=== PATIENT | male | born 1940 | race Caucasian/White ===

== ENCOUNTER 2016-09-28 15:15 | Observation (INO) | payer MEDICARE, OTHER ==
[~2016-09-28] VITALS: Ht 182.9 cm; Wt 125.3 kg
[~2016-09-28 15:15] MED LIST: ACETAMINOPHEN325 M1 PO; ALDACTONE 25MG25 MG NG; ALDACTONE 25MG25 MG PO; ASPIRIN 81MG TA81 MG PO; ASPIRIN CHILDRE81 M1 PO; ATIVAN GENERIC0.5 MG PO; ATORVASTATIN CA10 M1 PO; B/P PILL PO; BISAC-EVAC10 MG PR; BISACODYL5 MG PO; CARAFATE1 GM PO; CARBIDOPA/LE1 TABLE2 PO; CARVEDILOL 25MG25 MG PO; CARVEDILOL3.125 MG PO; CEFDINIR300 M1 PO; CENTRUM SILVER1 TA2 PO; CIPRO 500MG TA500 MG PO; CORTEF10 MG PO; CORTEF20 MG PO; FISH OIL1000 MG PO; HYDROCHLOROTHIA25 M1 PO; HYDROCODONE-APA1 TA1 PO; HYDROCODONE-APA1 TA2 PO; HYDROCORTISONE10 MG PO; LASIX40 MG PO; LEVOTHYROXIN0.112 M1 PO; LEVOTHYROXIN0.175 MG PO; LEVOTHYROXINE0.15 MG PO; LIPITOR40 MG PO; LISINOPRIL 5MG T5 MG PO; LISINOPRIL HCTZ1 TAB PO; LISINOPRIL/HYDR1 TAB PO; LISINOPRIL20 MG PO; LISINOPRIL40 MG PO; LOPRESSOR 50 MG50 MG PO; MECLIZINE 25MG25 MG PO; MECLIZINE12.5 MG PO; NIFEDIPINE ER90 MG PO; OMEPRAZOLE D/R20 MG PO; OMNICEF 300 MG300 MG PO; PANTOPRAZOLE SO40 MG PO; POTASSIUM CHLO10 ME3 PO; PREDNISONE 20MG20 MG PO; PREDNISONE20 MG PO; PROTONIX 40MG T40 MG PO; QUETIAPINE FUMA25 MG PO; ROBAXIN-750750 MG PO; SILVADENE CREAM50 GM TP; TYLENOL325 MG PO; ZITHROMAX Z-PA250 M1 PO
[2016-09-28 15:17] VITALS: BP 133/82
[2016-09-28 15:33] LABS: LYMPH # 2.8 K/mm3 (0.7-4.5); LYMPH % 22.9 % (10-50)
[2016-09-28 16:18] LABS: BUN 52 mg/dL (7-18)
[2016-09-28 16:22] LABS: GFR (ESTIMATED) 28 ML/MIN (>60)
--- NOTE | 2016-09-28 16:55 | CARDIOVASCULAR REPORT ---
"Venous Exam Indications: 729.5 Pain in limb. 729.81 Swelling of limb. IMPRESSIONS 1. There is no evidence of significant Reflux. 2. No evidence of deep or superficial vein thrombosis involving the left lower extremity Left lower extremity venous duplex evaluation. Doppler flow study including spectral analysis, color and valle scale imaging. Location: Vascular laboratory. Patient status: Emergency department. Tables: Venous flow and imaging: + + + + |Location |Overall |Flow properties | + + + + |Left common femoral |Patent |Normal phasicity; | | | |spontaneous; normal | | | |augmentation; compressible | + + + + |Left saphenofemoral junction|Patent |Compressible | + + + + |Left profunda femoral |Patent |Compressible | + + + + |Left femoral |Patent |Normal phasicity; | | | |spontaneous; normal | | | |augmentation; compressible | + + + + |Left greater saphenous |Patent |Normal phasicity; | | | |spontaneous; normal | | | |augmentation; compressible | + + + + |Left popliteal |Patent |Normal phasicity; | | | |spontaneous; normal | | | |augmentation; compressible | + + + + |Left posterior tibial |Not visualized| | + + + + |Left peroneal |Not visualized| | + + + + |Left gastrocnemius |Patent |Compressible | + + + + |Left soleal |Patent |Compressible | + + + + (Report amended ) Electronically signed by: Mario Beavers [id number]"
--- NOTE | 2016-09-28 17:36 | Emergency Room Report ---
History of Present Illness Time Seen by [id number] Presenting Problem in Triage Pt arrived:Walked Presenting Problem:TRIED TO GO SEE DR ZAZUETA BUT COULDN'T GET OUT OF HOUSE WITHOUT FEELING SWIMMY HEADED. PT STATES HE HAS ISSUES WITH CHF AND HAS BEEN RECEIVING LASIX. 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 N Clinical Suspician of Infection? N Mental Status: 1 - Regular (Normal Baseline) Sepsis Risk:Low Sepsis Risk Have you (or family members/close friends) recently traveled outside the [place]? N If Yes, where/when: Have you had exposure to infectious disease within the past month? TB? Other? Specify: Source patient, RN notes reviewed, family, RN/MD Exam Limitations no limitations Comment This is a 76-year-old male patient arriving to the emergency room due to generalized weakness, inability to stand and walk, ongoing shortness of breath, LEFT lower extremity weakness. Patient tried to go see his PCP today, Dr. Zazueta, but he was unable to, due to above-mentioned complaints. Patient denies any chest pain, recently. He has a history of Parkinson and congestive heart failure. His PCP call [employer] antibiotics due to LEFT lower extremity cellulitis, and he is on day number 4 of such antibiotic treatment. Girlfriend advised that patient is barely getting out of bed at home, watching TV all day long. ALLERGIES Coded Allergies: Sulfa (Sulfonamide Antibiotics) (09/28/16) Home Medications Active Scripts Carvedilol (Carvedilol 3.125MG) 6.25 MG PO BID #60 TAB Ref 2 Prov: 04/10/15 HYDROCODONE 5MG/APAP 325MG (Hydrocodon-Acetaminophen 5-325) 1 TAB PO Q4HP PRN pain #24 TAB Prov: 02/14/16 Reported Medications Spironolactone (Aldactone) 25 MG PO BID Levothyroxine Sodium (Levothyroxine 0.112MG) 0.112 MG PO DAILY CARBIDOPA 25/LEVODOPA 100 (Carbidopa-Levodopa 25-100 Tab) 1 TABLET PO TID Acetaminophen (Tylenol) 650 MG PO [id number] Hydrocortisone (Cortef) 10 MG PO QHS Nifedipine (Procardia XL 90MG) 90 MG PO DAILY Pantoprazole Sodium (Pantoprazole 40MG) 40 MG PO DAILY ASPIRIN (Aspirin) 81 MG PO DAILY Hydrocortisone (Cortef) 20 MG PO DAILY Atorvastatin Calcium 20 MG PO QHS LISINOPRIL/HYDROCHLOROTHIAZIDE (Lisinopril-Hctz 20-25 MG Tab) 2 TAB PO DAILY History Medical History General CAD? Yes Angina: No MT: No Hypertension? Yes Hyperlipidemia? Yes CHF? No DVT? No PE? No COPD? No Asthma? No Anemia? Yes GERD? No Gastric ulcers? No GI Bleed? No Hernia? No Thyroid Problems? Yes Hypothyroidism? Yes CVA? Yes Seizures? No Diabetes? No Insulin Dependent: No Insulin Pump: No Home FSBS? No Renal Insuffiency? No End Stage Renal Disease? No UTI? No Stones? No BPH? No GB Disease: No Nephritic Syndrome? No Asplenia? No Hepatitis? No Sickle Cell Disease? No Arthritis? No Migraines? No Cataracts? No Glaucoma? No MRSA? No HIV? No TB? No Anxiety? No Depression? No Cancer? No More? 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 Family History Family Hx Diabetes No CAD Yes Hypertension Yes Hyperlipidemia Yes Cancer Yes TB No Social History Smoking Hx Smoker: Never Smoker Tobacco: No Type Cigarettes Alcohol Alcohol: No Review of Systems All Other Systems Reviewed and Negative Cardiovascular edema (lower extremity edema) Comment unable to stand up and walk Physical Exam Vital Signs Vital Signs Date Time Temp Pulse Resp B/P Pulse O2 O2 Flow FiO2 Ox Delivery Rate 09/28 1810 120 22 146/67 96 09/28 1616 64 20 135/78 98 09/28 1534 121 133/76 09/28 1533 81 138/77 09/28 1533 75 133/82 09/28 1517 97.8 80 18 133/82 97 General Appearance WD/WN, mild distress Neck normal inspection, non-tender, supple, full range of motion Respiratory Status Yes: trachea midline, chest symmetrical, non tender chest. No: respiratory distress. Lung Sounds bilateral: normal breath sounds, lungs clear. 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 No Comment 18:15-case d/w Dr Frausto, advised of patient's presentation, physical examination, radiology/lab work, electrocardiogram findings and course, vital signs, lack of any improvement and patient's inability to stand up and walk. Lisbet agreeable to admit patient Dr. Zazueta's service, and consult care management, for possible visiting nurse after be discharged home versus correction placement. Care transferred to Dr. Frausto at this time. I will write bridge admission orders, per hospital policy. Upon patient's arrival to the unit to the clerk secretary/[address] Frausto noted to obtain full inpatient admission orders. Results/Orders Laboratory Tests 09/28/16 1520: Amylase 62, Lipase 142 09/28/16 1520: Sodium 133 L, Potassium 5.8 H, Chloride 97 L, Carbon Dioxide 27, BUN 52 H, Creatinine 2.3 H, Estimated Creat Clear 51, Estimated GFR (MDRD) 28, Glucose 129 H, Calcium 9.4, Total Bilirubin 0.6, AST 23, ALT 35, Alkaline Phosphatase 100, Creatine Kinase 128, CK-MB (CK-2) Rel Index 2.1, CK and CKMB Interp 2.7, Troponin I 0.02, Total Protein 7.2, Albumin 4.0, Globulin 3.2, Albumin/Globulin Ratio 1.3, TSH < 0.01 L, Free T4 Index 6.0, Thyroxine (T4) 6.5, T3 Uptake 37, WBC 12.4 H, RBC 4.38 L, Hgb 14.0 L, Hct 41.8 L, MCV 95.4, RDW 14.8, Plt Count 289, MPV 6.3 L, Gran % 71.8, Gran # 8.9 H, Lymphocytes % 22.9, Monocytes % 5.1, Eosinophils % 0.1, Basophils % 0.1, Lymphocytes # 2.8, Monocytes # 0.6, Eosinophils # 0.0, Basophils # 0.0, PUBS MCHC 33.6, MCH 32.0 H Current Medication Orders Sig/Bennett Start time Last Medication Dose Route Stop Time Status Admin Sodium Chloride 10 ML PRN PRN 09/28 1530 AC IV 09/29 1522 Orders Procedure Date/time Status DIET-NOTHING BY MOUTH 09/[address] HEAD REQ 09/28 1814 Complete LIPASE 09/28 1814 Complete AMYLASE 09/28 1814 Complete VENOUS LOWER EXT LT 09/28 1633 Complete ELECTROCARDIOGRAM REQUEST 09/28 1522 Active IV SALINE LOCK 09/28 1522 Active THYROID PANEL 2 (WITH TSH) 09/28 152 Complete CBC WITH AUTO DIFF 09/28 1522 Complete CARDIAC ENZYMES 09/28 1522 Complete CHEM 12 PROFILE 09/28 1522 Complete 12 LEAD EKG-BESSON (INITIAL) 09/28 1520 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 of ischemic chgs, no ectopy, normal QRS, normal [place], no EKG for comparison, non-spec. ST/Twave chgs, ST elevation, ST depression, LBBB, RBBB, ectopy, abnormal Q waves XRAY/CT/US XRAY/CT/US 1 XRAY chest XR interpretation by reviewed by me Xray Results no infiltrates, cardiomegaly, no significant change when compared to previous studies XRAY/CT/US [address] interpretation by discussed w/radiologist CT Results atrophy, no ICH XRAY/CT/US 3 Ultrasound lower extremity (LEFT) US Interpretation by discussed w/radiologist US results no DVT Departure Departure Time of Disposition 1810 Disposition Still a Patient Clinical Impression Primary Impression: Weakness Secondary Impressions: Hyperkalemia Condition STABLE Referrals Luann POLANCO,Chris (Family) ED Critical Care Critical Care No at 1938
--- NOTE | 2016-09-28 17:36 | Emergency Room Report ---
History of Present Illness Time Seen by [id number] Presenting Problem in Triage Pt arrived:Walked Presenting Problem:TRIED TO GO SEE DR ZAZUETA BUT COULDN'T GET OUT OF HOUSE WITHOUT FEELING SWIMMY HEADED. PT STATES HE HAS ISSUES WITH CHF AND HAS BEEN RECEIVING LASIX. 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 N Clinical Suspician of Infection? N Mental Status: 1 - Regular (Normal Baseline) Sepsis Risk:Low Sepsis Risk Have you (or family members/close friends) recently traveled outside the [place]? N If Yes, where/when: Have you had exposure to infectious disease within the past month? TB? Other? Specify: Source patient, RN notes reviewed, family, RN/MD Exam Limitations no limitations Comment This is a 76-year-old male patient arriving to the emergency room due to generalized weakness, inability to stand and walk, ongoing shortness of breath, LEFT lower extremity weakness. Patient tried to go see his PCP today, Dr. Zazueta, but he was unable to, due to above-mentioned complaints. Patient denies any chest pain, recently. He has a history of Parkinson and congestive heart failure. His PCP call [employer] antibiotics due to LEFT lower extremity cellulitis, and he is on day number 4 of such antibiotic treatment. Girlfriend advised that patient is barely getting out of bed at home, watching TV all day long. ALLERGIES Coded Allergies: Sulfa (Sulfonamide Antibiotics) (09/28/16) Home Medications Active Scripts Carvedilol (Carvedilol 3.125MG) 6.25 MG PO BID #60 TAB Ref 2 Prov: 04/10/15 HYDROCODONE 5MG/APAP 325MG (Hydrocodon-Acetaminophen 5-325) 1 TAB PO Q4HP PRN pain #24 TAB Prov: 02/14/16 Reported Medications Spironolactone (Aldactone) 25 MG PO BID Levothyroxine Sodium (Levothyroxine 0.112MG) 0.112 MG PO DAILY CARBIDOPA 25/LEVODOPA 100 (Carbidopa-Levodopa 25-100 Tab) 1 TABLET PO TID Acetaminophen (Tylenol) 650 MG PO [id number] Hydrocortisone (Cortef) 10 MG PO QHS Nifedipine (Procardia XL 90MG) 90 MG PO DAILY Pantoprazole Sodium (Pantoprazole 40MG) 40 MG PO DAILY ASPIRIN (Aspirin) 81 MG PO DAILY Hydrocortisone (Cortef) 20 MG PO DAILY Atorvastatin Calcium 20 MG PO QHS LISINOPRIL/HYDROCHLOROTHIAZIDE (Lisinopril-Hctz 20-25 MG Tab) 2 TAB PO DAILY History Medical History General CAD? Yes Angina: No MS: No Hypertension? Yes Hyperlipidemia? Yes CHF? No DVT? No PE? No COPD? No Asthma? No Anemia? Yes GERD? No Gastric ulcers? No GI Bleed? No Hernia? No Thyroid Problems? Yes Hypothyroidism? Yes CVA? Yes Seizures? No Diabetes? No Insulin Dependent: No Insulin Pump: No Home FSBS? No Renal Insuffiency? No End Stage Renal Disease? No UTI? No Stones? No BPH? No GB Disease: No Nephritic Syndrome? No Asplenia? No Hepatitis? No Sickle Cell Disease? No Arthritis? No Migraines? No Cataracts? No Glaucoma? No MRSA? No HIV? No TB? No Anxiety? No Depression? No Cancer? No More? 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 Family History Family Hx Diabetes No CAD Yes Hypertension Yes Hyperlipidemia Yes Cancer Yes TB No Social History Smoking Hx Smoker: Never Smoker Tobacco: No Type Cigarettes Alcohol Alcohol: No Review of Systems All Other Systems Reviewed and Negative Cardiovascular edema (lower extremity edema) Comment unable to stand up and walk Physical Exam Vital Signs Vital Signs Date Time Temp Pulse Resp B/P Pulse O2 O2 Flow FiO2 Ox Delivery Rate 09/28 1810 120 22 146/67 96 09/28 1616 64 20 135/78 98 09/28 1534 121 133/76 09/28 1533 81 138/77 09/28 1533 75 133/82 09/28 1517 97.8 80 18 133/82 97 General Appearance WD/WN, mild distress Neck normal inspection, non-tender, supple, full range of motion Respiratory Status Yes: trachea midline, chest symmetrical, non tender chest. No: respiratory distress. Lung Sounds bilateral: normal breath sounds, lungs clear. 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 No Comment 18:15-case d/w Dr Frausto, advised of patient's presentation, physical examination, radiology/lab work, electrocardiogram findings and course, vital signs, lack of any improvement and patient's inability to stand up and walk. Lisbet agreeable to admit patient Dr. Zazueta's service, and consult care management, for possible visiting nurse after be discharged home versus fdc placement. Care transferred to Dr. Frausto at this time. I will write bridge admission orders, per hospital policy. Upon patient's arrival to the unit to the social secretary/[address] Frausto noted to obtain full inpatient admission orders. Results/Orders Laboratory Tests 09/28/16 1520: Amylase 62, Lipase 142 09/28/16 1520: Sodium 133 L, Potassium 5.8 H, Chloride 97 L, Carbon Dioxide 27, BUN 52 H, Creatinine 2.3 H, Estimated Creat Clear 51, Estimated GFR (MDRD) 28, Glucose 129 H, Calcium 9.4, Total Bilirubin 0.6, AST 23, ALT 35, Alkaline Phosphatase 100, Creatine Kinase 128, CK-MB (CK-2) Rel Index 2.1, CK and CKMB Interp 2.7, Troponin I 0.02, Total Protein 7.2, Albumin 4.0, Globulin 3.2, Albumin/Globulin Ratio 1.3, TSH < 0.01 L, Free T4 Index 6.0, Thyroxine (T4) 6.5, T3 Uptake 37, WBC 12.4 H, RBC 4.38 L, Hgb 14.0 L, Hct 41.8 L, MCV 95.4, RDW 14.8, Plt Count 289, MPV 6.3 L, Gran % 71.8, Gran # 8.9 H, Lymphocytes % 22.9, Monocytes % 5.1, Eosinophils % 0.1, Basophils % 0.1, Lymphocytes # 2.8, Monocytes # 0.6, Eosinophils # 0.0, Basophils # 0.0, PUBS MCHC 33.6, MCH 32.0 H Current Medication Orders Sig/Bennett Start time Last Medication Dose Route Stop Time Status Admin Sodium Chloride 10 ML PRN PRN 09/28 1530 AC IV 09/29 1522 Orders Procedure Date/time Status DIET-NOTHING BY MOUTH 09/[address] HEAD REQ 09/28 1814 Complete LIPASE 09/28 1814 Complete AMYLASE 09/28 1814 Complete VENOUS LOWER EXT LT 09/28 1633 Complete ELECTROCARDIOGRAM REQUEST 09/28 1522 Active IV SALINE LOCK 09/28 1522 Active THYROID PANEL 2 (WITH TSH) 09/28 152 Complete CBC WITH AUTO DIFF 09/28 1522 Complete CARDIAC ENZYMES 09/28 1522 Complete CHEM 12 PROFILE 09/28 1522 Complete 12 LEAD EKG-BESSON (INITIAL) 09/28 1520 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 of ischemic chgs, no ectopy, normal QRS, normal [place], no EKG for comparison, non-spec. ST/Twave chgs, ST elevation, ST depression, LBBB, RBBB, ectopy, abnormal Q waves XRAY/CT/US XRAY/CT/US 1 XRAY chest XR interpretation by reviewed by me Xray Results no infiltrates, cardiomegaly, no significant change when compared to previous studies XRAY/CT/US [address] interpretation by discussed w/radiologist CT Results atrophy, no ICH XRAY/CT/US 3 Ultrasound lower extremity (LEFT) US Interpretation by discussed w/radiologist US results no DVT Departure Departure Time of Disposition 1810 Disposition Still a Patient Clinical Impression Primary Impression: Weakness Secondary Impressions: Hyperkalemia Condition STABLE Referrals Luann POLANCO,Chris (Family) ED Critical Care Critical Care No at 1938
--- NOTE | 2016-09-28 19:08 | RADIOLOGY REPORT PS360 ---
CHEST-AP VIEW ONLY Ordering physician: Chris Kong MD Age: 76 years Male INDICATION: chest symptomsdyspnea, Hx of CHF PROCEDURE: CHEST-AP VIEW ONLY FINDINGS: Previous chest film 02/15/2016. There is been no significant interval change. The mild accentuation of markings at the medial left base is long-standing unchanged since prior studies and appears to may reflect anterior epicardial fat pad summation shadow based on CT 08/19/2015 Lungs well expanded and clear with nothing definitely acute. No pneumothorax. No pleural effusion. Heart upper normal size. Normal pulmonary vascularity. Hilar and mediastinal structures appear satisfactory. Chest wall unremarkable. IMPRESSION ----- Nothing definite acute at chest No significant change a stable chest
--- NOTE | 2016-09-28 19:09 | RADIOLOGY REPORT PS360 ---
CT HEAD WITHOUT CONTRAST CT BONE WINDOWS included ORDERING PHYSICIAN : Chris Kong MD PATIENT AGE: 76 years GENDER: Male PROCEDURE: Routine axial images head with brain & bone windows without contrast HISTORY: WEAKNESS 76-year-old with weakness COMPARISON: Previous CT head 02/14/2016 & April 2008 FINDINGS: No acute intrarenal findings. No changes previous studies 2015 2014 Diffuse cerebral atrophy most evident towards convexity of cerebral hemispheres. Similar to previous recent study. Linear area low-density along periphery the basal ganglia or involvingposterior aspect external capsule, is again noted and unchanged likely reflecting some old lacunar infarct changes through this region... This spans nearly 20 mm AP x 3 mm wide. Unchanged. No hemorrhage. . No subdural nor extra-axial collection. Ventricles & basal cisterns mildly prominent reflecting the cerebral atrophy. The posterior fossa appear satisfactory and unremarkable. The sella is enlarged and filled with CSF density as previous studies.. This is unchanged since CT head studies dating back to April 2008: . Again It measures up to 2 cm AP and 2008. Again note associated mild asymmetry of the sphenoid sinus just inferior it is stable as well Otherwise. Visualized paranasal sinuses appear clear. Orbits unremarkable. Mastoid and middle ear unremarkable. Minimal physiologic calcification left basal ganglia is stable, long-standing. The skull is intact. IMPRESSION: No acute intracranial findings . No significant change since previous. [address] Diffuse cerebral atrophy. 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
[2016-09-28 22:36] VITALS: BP 136/95
[2016-09-28 22:53] VITALS: BP 123/66
[2016-09-29] VITALS (7 sets, daily range): BP systolic 112–131; BP diastolic 59–64
[2016-09-29] MEDS ORDERED: PREDNISONE (00:49)
--- NOTE | 2016-09-29 04:22 | PHARMACY CLINIC NOTE ---
Patient Demographics Patient Demographics Admission date: 09/28/16 Date: 09/29/16 Time: 042 Allergies Coded Allergies: Sulfa (Sulfonamide Antibiotics) (09/28/16) HEIGHT- FT: 6 IN: 0.00 [id number] VTE General Information Labs: Laboratory Tests 09/28 1520 Hematology Hgb (14.1 - 18.0 g/dL) 14.0 L Hct (42.0 - 52.0 %) 41.8 L Plt Count (142 - 424 K/mm3) 289 Disclaimer The following section includes nursing documentation that has been pulled in for pharmacy review. Patient's VTE score: 3 Patient's VTE Risk: LOW RISK Clinical trial participant? No VTE prophylaxis NQF [id number] VTE prophylaxis ordered? Yes Type of prophylaxis/treatment: KAMILLE at 0422
[2016-09-29] MEDS ORDERED: PREDNISONE 20MG20 MG PO (04:34)
[2016-09-29] MEDS ORDERED: HYDROCORTISONE10 MG PO (04:35)
[2016-09-29] MEDS ORDERED: LISINOPRIL5 MG PO (04:36)
[2016-09-29] MEDS ORDERED: FUROSEMIDE 40MG40 M1 PO ×2 (04:37→10:39)
[2016-09-29 06:57] LABS: HEMOGLOBIN 12.8 g/dL (14.1-18.0); LYMPH # 4.5 K/mm3 (0.7-4.5); LYMPH % 34.3 % (10-50)
--- NOTE | 2016-09-29 07:51 | HISTORY AND PHYSICAL REPORT ---
Demographics: Admit date: 09/28/16 Chief complaint: Weakness and lethargy PRIMARY DIAGNOSIS: WEAKNESS, HYPERKALEMIA; ACUTE RENAL FAILURE Allergies: Coded Allergies: Sulfa (Sulfonamide Antibiotics) (09/28/16) History of present illness: History of present illness: 76-year-old white male with multiple medical problems including pituitary insufficiency, hypothyroidism, chronic stasis dermatitis and chronic depression issues who presented to my office 2 weeks ago with significant lower cavity edema, weeping and cellulitis. He was placed on diuretics which he had stopped at home and was seen back a week later and was much improved. Unfortunately over the last couple of days she become increasingly weak and has been unable to do self-care activities and his caregiver reports that he has been sitting in his chair and bed and only watching television and not doing any activities. He was too weak to come to my office yesterday and was brought to the emergency department where he was found to have acute kidney injury, dizziness and hyperkalemia and was admitted to hospital. This morning he states he feels some better but reports continued dizziness and weakness. Past medical history: Family HX Diabetes No CAD Yes Hypertension Yes Hyperlipidemia No Cancer No TB No Immunization HX Ped.Immunizations UTD Yes DT/Tetanus Unknown Flu 2014-16FSN Pneumonia Received In Past TB Test in last year Yes Result Negative General CAD? Yes Angina: No GA: No Hypertension? Yes Hyperlipidemia? Yes CHF? No DVT? No PE? No COPD? No Asthma? No Anemia? Yes GERD? No Gastric ulcers? No GI Bleed? No Hernia? No Thyroid Problems? Yes Hypothyroidism? Yes CVA? Yes Seizures? No Diabetes? No Insulin Dependent: No Insulin Pump: No Home FSBS? No Renal Insuffiency? No UTI? No Stones? No BPH? No GB Disease: No Nephritic Syndrome? No Asplenia? No Hepatitis? No Sickle Cell Disease? No Arthritis? No Migraines? No Cataracts? No Glaucoma? No MRSA? No HIV? No TB? No Anxiety? No Depression? No Cancer? No More? 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 Current home meds: Active Scripts Carvedilol (Carvedilol 3.125MG) 6.25 MG PO BID #60 TAB Ref 2 Prov: 04/10/15 Reported Medications Spironolactone (Aldactone) 25 MG PO BID Levothyroxine Sodium (Levothyroxine 0.112MG) 0.112 MG PO DAILY CARBIDOPA 25/LEVODOPA 100 (Carbidopa-Levodopa 25-100 Tab) 1 TABLET PO TID Acetaminophen (Tylenol) 650 MG PO [id number] Prednisone (Prednisone 20MG) 20 MG PO DAILY #90 Hydrocortisone 10 MG PO TID #90 Lisinopril 5 MG PO DAILY #90 Nifedipine (Procardia XL 90MG) 90 MG PO DAILY Pantoprazole Sodium (Pantoprazole 40MG) 40 MG PO DAILY ASPIRIN (Aspirin) 81 MG PO DAILY Atorvastatin Calcium 20 MG PO QHS LISINOPRIL/HYDROCHLOROTHIAZIDE (Lisinopril-Hctz 20-25 MG Tab) 2 TAB PO DAILY Social Hx: Smoking HX Tobacco No Type Cigarettes Alcohol Alcohol: No Hx of Drug Use Drug Use? No Patien't marital status is single Patient's support system is fair Review of systems: Constitutional malaise, weakness. Respiratory No: no symptoms reported. Cardiovascular see HPI Gastrointestinal/Abdominal No no symptoms reported Genitourinary No: no symptoms reported. Musculoskeletal No: no symptoms reported. Neurological Yes: no symptoms reported. Exam: Lab data for last 24 hours: Laboratory Tests 09/29/16 0649: POC Glucose 94 09/29/16 0610: Sodium 136, Potassium 4.6, Chloride 99, Carbon Dioxide 27, BUN 52 H, Creatinine 2.3 H, Estimated Creat Clear 48 L, Estimated GFR (MDRD) 28, Glucose 100, Calcium 9.1, WBC 13.2 H, RBC 4.04 L, Hgb 12.8 L, Hct 38.7 L, MCV 95.9, RDW 14.7, Plt Count 245, MPV 6.3 L, Gran % 60.8, Gran # 8.0, Lymphocytes % 34.3, Monocytes % 4.4, Eosinophils % 0.3, Basophils % 0.2, Lymphocytes # 4.5, Monocytes # 0.6, Eosinophils # 0.0, Basophils # 0.0, PUBS MCHC 33.2, MCH 31.8 H 09/28/16 2210: POC Glucose 268 H 09/28/16 1520: Amylase 62, Lipase 142 09/28/16 1520: Sodium 133 L, Potassium 5.8 H, Chloride 97 L, Carbon Dioxide 27, BUN 52 H, Creatinine 2.3 H, Estimated Creat Clear 51, Estimated GFR (MDRD) 28, Glucose 129 H, Calcium 9.4, Total Bilirubin 0.6, AST 23, ALT 35, Alkaline Phosphatase 100, Creatine Kinase 128, CK-MB (CK-2) Rel Index 2.1, CK and CKMB Interp 2.7, Troponin I 0.02, Total Protein 7.2, Albumin 4.0, Globulin 3.2, Albumin/Globulin Ratio 1.3, TSH < 0.01 L, Free T4 Index 6.0, Thyroxine (T4) 6.5, T3 Uptake 37, WBC 12.4 H, RBC 4.38 L, Hgb 14.0 L, Hct 41.8 L, MCV 95.4, RDW 14.8, Plt Count 289, MPV 6.3 L, Gran % 71.8, Gran # 8.9 H, Lymphocytes % 22.9, Monocytes % 5.1, Eosinophils % 0.1, Basophils % 0.1, Lymphocytes # 2.8, Monocytes # 0.6, Eosinophils # 0.0, Basophils # 0.0, PUBS MCHC 33.6, MCH 32.0 H Admission vital signs: 1ST Vital Signs Result Date Time Pulse Ox 97 09/28 151 B/P 133/82 09/28 151 Temp 97.8 09/28 1517 Pulse 80 09/28 1517 Resp 18 09/28 151 O2 Delivery ROOM AIR 09/286 Additional information: Patient is alert, oriented x3, with clear lungs and regular heart rate. Abdomen is soft, legs look much improved with minimal edema and no evidence of cellulitis. He appears overall weak, dehydrated with poor skin turgor and dry oral mucosa. Plan: Problem List 1. Renal insufficiency 2. Pedal edema 3. Weakness 4. Hyperkalemia Plan: Begin low-dose IV fluids. Physical therapy evaluation. Consider rehabilitation/ skilled care stay. at 0751
[2016-09-29] MEDS ORDERED: MUPIROCIN 2% O1 INC1 TP (10:40)
[2016-09-29] MEDS ORDERED: KEFLEX 500MG.500 MG PO (10:41)
[2016-09-30 03:49] VITALS: BP 120/50
--- NOTE | 2016-09-30 08:03 | ACUTE CARE PROGRESS NOTE (QUA) ---
Progress Notes Subjective Date 09/30/16 Time 0754 Note Patient is a pleasant 76 year old male who was admitted two days ago. Patient states he is not feeling well this morning. He has not slept for two days. Patient denies being in pain, but states he is anxious. He states that he has dizziness when he sits up. Patient denies chest pain or difficulty breathing. Patient's edema in left leg has not resolved. Objective Exam General appearance: alert, awake, no acute distress Eyes: PERRLA Cardiovascular: normal sinus rhythm, edema (left lower extremety) Respiratory: diminished breath sounds ABD: non-distended, normal bowel sounds, soft, no tenderness Genitourinary: urine concentrated Extremities: moves all Musculoskeletal: equal muscle strength Skin: dry, intact, warm Neuro: normal exam Reviewed: medications, vital signs, lab results, nursing notes Assessment/Plan Problem List 1. Renal insufficiency 2. Pedal edema 3. Weakness 4. Hyperkalemia Plan: Will order physical therapy to evaluate patient. Will order routine labs. Possible LTC transfer today versus home health for ataxia. Low dose ativan and cytalopram for patient's anxiety. This inpt stay is expected to cross 2 MNs from start of care No at 0802
[2016-09-30 08:46] VITALS: BP 120/50
[2016-09-30 10:06] VITALS: BP 127/66
[2016-09-30] MEDS ORDERED: CELEXA 20MG TAB20 MG PO (11:54)
--- NOTE | 2016-09-30 11:57 | DISCHARGE SUMMARY STANDARD ---
Demographics Admit date: 09/28/16 Discharge date: 09/30/16 History of present illness History of present illness 76-year-old white male with multiple medical problems including pituitary insufficiency, hypothyroidism, chronic stasis dermatitis and chronic depression issues who presented to my office 2 weeks ago with significant lower cavity edema, weeping and cellulitis. He was placed on diuretics which he had stopped at home and was seen back a week later and was much improved. Unfortunately over the last couple of days she become increasingly weak and has been unable to do self-care activities and his caregiver reports that he has been sitting in his chair and bed and only watching television and not doing any activities. He was too weak to come to my office yesterday and was brought to the emergency department where he was found to have acute kidney injury, dizziness and hyperkalemia and was admitted to hospital. This morning he states he feels some better but reports continued dizziness and weakness. Hospital Course Hospital Course: Patient was admitted, his legs actually looked vastly improved from an infectious standpoint since his office visits and his Keflex was continued orally. Renal function was found to be compromised at a creatinine of 2.3 and he was gently hydrated with creatinine improvement to 1.5. He continued to have lots of problems with weakness and fatigue. Lots of problems with anxiety issues. He was given one dose of Ativan here which seemed to help in very nicely and citalopram was started. PT evaluated him and felt that he would be a good candidate for ongoing inpatient rehabilitation, and [place] [facility] [place] of his diuretic status, physical therapy and overall nursing care and compression therapy for his chronic edema. Please note that he will be able to use his home medications apply for cost reasons at the retirement, and this list is noted in the discharge order. We'll follow him up in a couple of days. He will need a CBC and BMP in 3 days. Discharge diagnoses Problem List 1. Renal insufficiency 2. Pedal edema 3. Weakness 4. Hyperkalemia Medications Medications: Discharge meds are as noted. Follow up Follow up in office in: 2 DAYS with: Lizbeth Smith APRN at [phone]
--- NOTE | 2016-09-30 11:57 | DISCHARGE SUMMARY STANDARD ---
Demographics Admit date: 09/28/16 Discharge date: 09/30/16 History of present illness History of present illness 76-year-old white male with multiple medical problems including pituitary insufficiency, hypothyroidism, chronic stasis dermatitis and chronic depression issues who presented to my office 2 weeks ago with significant lower cavity edema, weeping and cellulitis. He was placed on diuretics which he had stopped at home and was seen back a week later and was much improved. Unfortunately over the last couple of days she become increasingly weak and has been unable to do self-care activities and his caregiver reports that he has been sitting in his chair and bed and only watching television and not doing any activities. He was too weak to come to my office yesterday and was brought to the emergency department where he was found to have acute kidney injury, dizziness and hyperkalemia and was admitted to hospital. This morning he states he feels some better but reports continued dizziness and weakness. Hospital Course Hospital Course: Patient was admitted, his legs actually looked vastly improved from an infectious standpoint since his office visits and his Keflex was continued orally. Renal function was found to be compromised at a creatinine of 2.3 and he was gently hydrated with creatinine improvement to 1.5. He continued to have lots of problems with weakness and fatigue. Lots of problems with anxiety issues. He was given one dose of Ativan here which seemed to help in very nicely and citalopram was started. PT evaluated him and felt that he would be a good candidate for ongoing inpatient rehabilitation, and he'll be transferred to the [facility] [place] for ongoing close observation of his diuretic status, physical therapy and overall nursing care and compression therapy for his chronic edema. Please note that he will be able to use his home medications apply for cost reasons at the halfway, and this list is noted in the discharge order. We'll follow him up in a couple of days. He will need a CBC and BMP in 3 days. Discharge diagnoses Problem List 1. Renal insufficiency 2. Pedal edema 3. Weakness 4. Hyperkalemia Medications Medications: Discharge meds are as noted. Follow up Follow up in office in: 2 DAYS with: Lizbeth Smith APRN at [phone]
[2016-09-30 13:57] VITALS: BP 127/66
== END 2016-09-30 14:00 ==
LOC: ER 15:15 → 2ND 18:30
PROVIDERS: Emergency Medicine; Internal Medicine Adolescent Medicine
DX: E87.5 Hyperkalemia (principal); E23.0 Hypopituitarism; I87.2 Venous insufficiency (chronic) (peripheral); R60.0 Localized edema; M79.605 Pain in left leg; M79.604 Pain in right leg; I10 Essential (primary) hypertension; Z86.73 Personal history of transient ischemic attack (TIA), and cerebral infarction without residual deficits
CPT/HCPCS: G0378

== ENCOUNTER → 2016-10-06 | Outpatient (CLI) | payer MEDICARE, OTHER ==
[~2016-10-06] MED LIST changes: +CELEXA 20MG TAB20 MG PO; +FUROSEMIDE 40MG40 M1 PO; +KEFLEX 500MG.500 MG PO; +LISINOPRIL5 MG PO; +MUPIROCIN 2% O1 INC1 TP; +PREDNISONE
--- NOTE | 2016-10-06 15:01 | RADIOLOGY REPORT PS360 ---
PROCEDURE: 2-D M-mode and color Doppler study INDICATIONS FOR THE TEST: Chest pain COPD Heart Murmur Tobacco Smoking Palpitations Fatigue Syncope Edema HypertensionXDiabetes Mellitus Rheumatic Fever SOBXDOE Obesity Hyperlipidemia Family History HD Additional History CHF,CAD,PAF PATIENT INFORMATION HEIGHT: 72 WEIGHT:268 GENDER: Male B/P:125/72 2-D/M-MODE INTERPRETATION: 2-D MEASUREMENTS OBSERVED VALUES IN CMS Right Ventricular Dimension (RVDd) 2.9 Interventricular Septum (Thickness)(IVsd) 1.0 Left Ventricular Internal Dimensions(LVIDd) 5.7 Left Ventricular Posterior Wall (Thickness)(LVPWd) 1.1 Aortic Root 2.6 Aortic Cusp Separation 2.0 Left Atrial Dimensions (LAD) 4.1 2D 1. Left atrium is mildly enlarged, left ventricle is normal size, there is no concentric left ventricular hypertrophy, visually estimated ejection fraction of 50% with no obvious regional wall motion abnormality, endocardial surfaces are somewhat poorly visualized. 2. The right atrium is mildly enlarged, right ventricle is mildly dilated with normal contractility. 3. The aortic valve is minimally thickened and calcified leaflet continue to display mobility. 4. The mitral valve has mitral calcification there is no mitral stenosis. 5. The tricuspid valve is structurally normal. 6. The pulmonic valve is not well visualized. 7. There is trivial pericardial effusion noted. DOPPLER INTERROGATION: Doppler interrogation of the aortic mitral and tricuspid valvular presence of a mild mitral and tricuspid regurgitation, diastolic parameters are inconclusive. CONCLUSION: 1. Biatrial enlargement, normal left ventricular size, visually estimated ejection fraction 50-55% with no obvious regional wall motion abnormality. 2. Mildly enlarged right ventricle with normal contractility. 3. Mild mitral and tricuspid regurgitation. 4. Trivial pericardial effusion noted.
== END ==
LOC: RT 09:18
DX: R60.9 Edema, unspecified (principal); I50.30 Unspecified diastolic (congestive) heart failure; I48.0 Paroxysmal atrial fibrillation

== ENCOUNTER → 2016-12-28 | Outpatient (CLI) | payer MEDICARE, OTHER ==
[2016-12-28 09:10] LABS: BUN 47 mg/dL (7-18)
[2016-12-28 09:12] LABS: GFR (ESTIMATED) 37 ML/MIN (>60)
== END ==
LOC: LAB 08:50
PROVIDERS: Internal Medicine Adolescent Medicine
DX: I87.2 Venous insufficiency (chronic) (peripheral) (principal); E87.5 Hyperkalemia; I50.32 Chronic diastolic (congestive) heart failure

== ENCOUNTER 2017-03-25 06:36 | Emergency (ER) | payer MEDICARE, OTHER ==
[~2017-03-25] VITALS: Ht 182.9 cm; Wt 113.4 kg
--- NOTE | 2017-03-25 06:57 | Emergency Room Report ---
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 WAS SEEN BY DR GERBER ON 03/24/17. BOTH EXT WERE WRAPPED IN OFFICE BUT HE REMOVED IT FROM RIGHT LEG THIS AM. 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 N Clinical Suspician of Infection? N Mental Status: 1 - Regular (Normal Baseline) Sepsis Risk:Low Sepsis Risk Have you (or family members/close friends) recently traveled outside the [place]? N If Yes, where/when: Have you had exposure to infectious disease within the past month? N TB? Other? Specify: Source patient, RN notes reviewed, EMS, old records Exam Limitations no limitations Comment this wm who usually ambulated with walker but now csan not ambulate this am and brought in by ems- he reports homehealth placed unna boot on lt lower ext and smita on rt but he removed rt last pm- he recently finished abx - no fever or vomiting Cardiac Chest Pain Chest pain indicative of cardiac No Timing/Duration this morning Severity moderate ALLERGIES Coded Allergies: Sulfa (Sulfonamide Antibiotics) (09/28/16) Home Medications Active Scripts Carvedilol (Carvedilol 3.125MG) 6.25 MG PO BID #60 TAB Ref 2 Prov: 04/10/15 CITALOPRAM HYDROBROMIDE (Citalopram HBr) 20 MG PO DAILY #30 TAB Ref 1 Prov: 09/30/16 Reported Medications Pantoprazole Sodium (Pantoprazole 40MG) 40 MG PO DAILY ASPIRIN (Aspirin) 81 MG PO DAILY CARBIDOPA 25/LEVODOPA 100 (Carbidopa-Levodopa 25-100 Tab) 1 TABLET PO TID Acetaminophen (Tylenol) 650 MG PO [id number] Atorvastatin Calcium 10 MG PO QHS Levothyroxine Sodium (Levothyroxine 0.112MG) 0.112 MG PO DAILY Prednisone (Prednisone 20MG) 20 MG PO DAILY #90 TAB Mupirocin 2% (Mupirocin 2% Oint) 1 TRIP TP TID CEPHALEXIN (Keflex 500MG Capsule) 500 MG PO TID Furosemide 80 MG PO DAILY History Medical History General CAD? Yes Angina: No CT: No Hypertension? Yes Hyperlipidemia? Yes CHF? No DVT? No PE? No COPD? No Asthma? No Anemia? Yes GERD? No Gastric ulcers? No GI Bleed? No Hernia? No Thyroid Problems? Yes Hypothyroidism? Yes CVA? Yes Seizures? No Diabetes? No Insulin Dependent: No Insulin Pump: No Home FSBS? No Renal Insuffiency? No End Stage Renal Disease? No UTI? No Stones? No BPH? No GB Disease: No Nephritic Syndrome? No Asplenia? No Hepatitis? No Sickle Cell Disease? No Arthritis? No Migraines? No Cataracts? No Glaucoma? No MRSA? No HIV? No TB? No Anxiety? No Depression? No Cancer? No More? 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 Respiratory denies cough, denies shortness of breath, denies wheezing Cardiovascular denies chest pain, denies palpitations, denies syncope Gastrointestinal denies abdominal pain, denies diarrhea, denies vomiting Genitourinary denies: dysuria, frequency, hesitancy, hematuria. Musculoskeletal denies back pain, denies joint pain, denies joint swelling, denies neck pain Skin see HPI, denies rash, other Psychiatric/Neurological denies headache, denies seizure Physical Exam Vital Signs Vital Signs Date Time Temp Pulse Resp B/P Pulse O2 O2 Flow FiO2 Ox Delivery Rate 03/25 0737 88 20 127/77 95 03/25 0640 98.1 82 20 137/82 97 - WBC >12,000 or <4,000 or 10% bands? 2 or more SIRS Criteria Met? B/P:137/82 MAP:100 Creatinine >2.0? UA output<0.5ml/kg/hr for 2 hrs? Platelet count >100,000? Lactate >2.0mmol/1? INR >1.2 or PTT > than 60 sec? Evidence of Organ Dysfunction? Provider documented clinical suspician of infection? N Sepsis Criteria Count: 1 Sepsis Risk: Low Sepsis Risk General Appearance no apparent distress Eye Exam - bilateral eye PERRL, bilateral eye EOMI Ear, Nose, Throat normal ENT inspection Neck non-tender Respiratory Status No: respiratory distress. Lung Sounds bilateral: lungs clear. 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 No Results/Orders Laboratory Tests 03/25/17 0702: Urine Color YELLOW, Urine Appearance CLEAR, Urine pH 7.0, Ur Specific [place] 1.015, Urine Protein NEGATIVE, Urine Ketones NEGATIVE, Urine Blood NEGATIVE, Urine Nitrate NEGATIVE, Urine Bilirubin NEGATIVE, Urine Urobilinogen 0.2, Ur Leukocyte Esterase NEGATIVE, Urine WBC OCC, Urine Bacteria TRACE, Urine Glucose NEGATIVE 03/25/17 0645: Sodium 138, Potassium 3.1 L, Chloride 97 L, Carbon Dioxide 30, BUN 36 H, Creatinine 1.5 H, Estimated Creat Clear 68, Estimated GFR (MDRD) 46, Glucose 172 H, Calcium 8.7, Total Bilirubin 0.6, AST 35, ALT 10 L, Alkaline Phosphatase 119 H, Creatine Kinase 82, CK-MB (CK-2) Rel Index 1.0, CK and CKMB Interp 0.8, Troponin I 0.03, Total Protein 6.5, Albumin 3.3 L, Globulin 3.2, Albumin/Globulin Ratio 1.0 L, WBC 19.5 H, RBC 4.06 L, Hgb 12.8 L, Hct 37.8 L, MCV 93.0, RDW 15.1, Plt Count 261, MPV 7.8, Gran % 85.7 H, Gran # 16.7 H, Total Counted 100, Lymphocytes % 9.4 L, Monocytes % 3.9, Eosinophils % 0.7, Basophils % 0.3, Neutrophils 88 H, Band Neutrophils 2, Lymphocytes (Manual) 7 L, Lymphocytes # 1.8, Monocytes (Manual) 3, Monocytes # 0.8, Eosinophils # 0.1, Basophils # 0.1, Platelet Estimate NORMAL, PUBS MCHC 33.8, MCH 31.5 H Current Medication Orders Sig/Bennett Start time Last Medication Dose Route Stop Time Status Admin Clindamycin Phosphate 900 MG ONCE ONE 03/25 745 AC Sodium Chloride 100 ML IV 03/25 844 Levofloxacin/Dextrose 100 ML ONCE ONE 03/25 745 CKDr 03/25 IV 03/25 844 0743 Levofloxacin/Dextrose 100 ML .STK-MED ONE 03/25 741 DC IV Sodium Chloride 10 ML PRN PRN 03/25 700 AC IV 03/26 0650 Orders Procedure Date/time Status ELECTROCARDIOGRAM REQUEST 03/25 650 Active CHEST-PORTABLE 03/25 650 Active IV SALINE LOCK 03/25 650 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 ST/Twave chgs XRAY/CT/US XRAY/CT/US XRAY chest XR interpretation by reviewed by me Xray Results abnormal (cm) Departure Departure Time of Disposition 07 Disposition Still a Patient Clinical Impression Primary Impression: Cellulitis of right lower limb Secondary Impressions: A-fib Qualifiers: Atrial fibrillation type: chronic Qualified Code: I48.2 - Chronic atrial fibrillation Renal insufficiency Condition STABLE Referrals Chris Gerber MD (Family) discussed with dr gerber Patient Instructions DI for Cellulitis -- Adult Additional Instructions use meds and see pcp for follow up Discharge Counseling Counseled pt/family regarding diagnosis, test results, medications/RX, follow up needs Prescriptions Current Visit Scripts Clindamycin Hcl (Clindamycin 300MG) 300 MG PO TID #30 CAP Levofloxacin (Levaquin 500MG) 500 MG PO DAILY #10 TAB ED Critical Care Critical Care No at 0810
[2017-03-25 06:58] LABS: HEMOGLOBIN 12.8 g/dL (14.1-18.0); LYMPH # 1.8 K/mm3 (0.7-4.5); LYMPH % 9.4 % (10-50)
[2017-03-25 07:12] LABS: URINE BILIRUBIN - DIPSTICK NEGATIVE (NEG); URINE BLOOD NEGATIVE (NEG)
[2017-03-25 07:23] LABS: NEUTROPHILS 88 % (42-76)
[2017-03-25] MEDS ORDERED: CLINDAMYCIN HC300 MG PO (08:10)
[2017-03-25] MEDS ORDERED: LEVAQUIN500 MG PO (08:10)
[2017-03-25 09:37] VITALS: BP 124/85
--- NOTE | 2017-03-26 08:30 | RADIOLOGY REPORT PS360 ---
CHEST-PORTABLE COMPARISON: Portable upright chest 02/15/2016 HISTORY: Generalized weakness TECHNIQUE: Portable upright chest FINDINGS: The lung soliman are well expanded. There is a subtle ill-defined opacity in right lower lung field likely due to confluence of vascular and overlying rib shadows but a very minimal pneumonic infiltrate cannot be entirely excluded. The right upper lung field and left lung field are borderline Celestino megaly without failure, there is no pleural fluid. Clear. IMPRESSION: Probably normal portable chest question minimal infiltrate right lower lobe versus confluence of vascular rib shadows I somewhat favor the former.
--- OUTSIDE RECORDS SUMMARY | 2017-04-01 18:07 | External Medical Summary Rpt | CCD ---
Author Author , DOMINGA ORR Address Unknown Phone [email or web address] Immunization Name Date Rout CVX Reac Dose Comm Prov Is Faci e tion ent ider Refu lity Give sed n PPV2 08-0 33 0.5 Hist [facility] No [facility] 3 1-20 mL oric 1 1 15 al Info rmat ion - Sour ce Unsp ecif ied
--- OUTSIDE RECORDS SUMMARY | 2017-04-01 18:07 | External Medical Summary Rpt | CCD ---
Author Author , HERMINIO Organization HERMINIO Address Unknown Phone [email or web address] Purpose Continuity of Care Document - 11-30-2016 through 2016 Results Labs Lab Lab Date Result Refere Interp Status Commen Order Detail nces retati t Range on Urinalysis dipstick W Reflex Microscopic panel in Urine (03-25-2017 07:02) Bacteri TRACE O complet a 017 ed [Presen 07:02 ce] in Urine sedimen t by Light microsc opy Urinalysis dipstick W Reflex Microscopic panel in Urine (03-25-2017 07:02) Appeara CLEAR CLEAR complet nce of 017 ed Urine 07:02 Bilirub NEGATIV NEG complet in 017 E ed [Presen 07:02 ce] in Urine by Test strip Erythro NEGATIV NEG complet cytes 017 E ed [Presen 07:02 ce] in Urine Color YELLOW YELLOW complet of 017 ed Urine 07:02 Ketones NEGATIV NEG complet 017 E ed [Presen 07:02 ce] in Urine by Automat ed test strip Mucus NEGATIV NEG complet [Presen 017 E ed ce] in 07:02 Urine sedimen t by Light microsc opy Nitrite NEGATIV NEG complet 017 E ed [Presen 07:02 ce] in Urine by Test strip Urobili 0.2 NEG complet nogen 017 ed [Presen 07:02 ce] in Urine by Test strip Differential panel, method unspecified - (03-25-2017 06:45) LYMPH 03-25- 7 % 10% - Low complet 017 50% ed 06:45 Platele NORMAL complet ts 017 ed [Presen 06:45 ce] in Blood by Light microsc opy
--- OUTSIDE RECORDS SUMMARY | 2017-04-01 18:07 | External Medical Summary Rpt | CCD ---
Author Author [employer] Organization [employer] Address Unknown Phone Unavailable Purpose Continuity of Care Document - through 2016
--- OUTSIDE RECORDS SUMMARY | 2017-04-01 18:07 | External Medical Summary Rpt ---
Author Author DOMINGA Culver, [employer] Organization [employer] Address Unknown Phone Unavailable Results Urinalysis dipstick W Reflex Microscopic panel in Urine Observa Value Referen Units Interpr Notes Date tion ce etation Range Appeara CLEAR CLEAR No No No Mar 25 nce of informa informa informa 2016 Urine tion in tion in tion in 7:02 AM source source source data data data Bacteri TRACE O No No No Mar 25 a informa informa informa 2016 [Presen tion in tion in tion in 7:02 AM ce] in source source source Urine data data data sedimen t by Light microsc opy Bilirub NEGATIV NEG No No No Mar 25 in E informa informa informa 2016 [Presen tion in tion in tion in 7:02 AM ce] in source source source Urine data data data by Test strip Erythro NEGATIV NEG No No No Mar 25 cytes E informa informa informa 2016 [Presen tion in tion in tion in 7:02 AM ce] in source source source Urine data data data Color YELLOW YELLOW No No No Mar 25 of informa informa informa 2017 Urine tion in tion in tion in 7:02 AM source source source data data data Glucose NEG No No No Mar 25 [Mass/vol informati informati informati 2016 7:02 ume] in on in on in on in AM Urine by source source source Test data data data strip Ketones NEGATIV NEG mg/dL No No Mar 25 E informa informa 2016 [Presen tion in tion in 7:02 AM ce] in source source Urine data data by Automat ed test strip Mucus NEGATIV NEG No No No Mar 25 [Presen E informa informa informa 2016 ce] in tion in tion in tion in 7:02 AM Urine source source source sedimen data data data t by Light microsc opy Nitrite NEGATIV NEG No No No Mar 25 E informa informa informa 2016 [Presen tion in tion in tion in 7:02 AM ce] in source source source Urine data data data by Test strip pH of 5.0 - 8.5 No Normal No Mar 25 Urine informati informati 2017 7:02 on in on in AM source source data data Protein NEG mg/dL No No Mar 25 [Mass/vol informati informati 2016 7:02 ume] in on in on in AM Urine by source source Automated data data test strip Specific 1.005 - No Normal No Mar 25 gravity 1.030 informati informati 2016 7:02 of Urine on in on in AM source source data data Urobili 0.2 NEG E.U./dL No No Mar 25 nogen informa informa 2016 [Presen tion in tion in 7:02 AM ce] in source source Urine data data by Test strip Leukocyte O wbc/hpf No No Mar 25 s informati informati 2016 7:02 [#/volume on in on in AM ] in source source Urine data data Urinalysis dipstick W Reflex Microscopic panel in Urine Observa Value Referen Units Interpr Notes Date tion ce etation Range Appeara CLEAR CLEAR No No No Mar 25 nce of informa informa informa 2017 Urine tion in tion in tion in 7:02 AM source source source data data data Bilirub NEGATIV NEG No No No Mar 25 in E informa informa informa 2016 [Presen tion in tion in tion in 7:02 AM ce] in source source source Urine data data data by Test strip Erythro NEGATIV NEG No No No Mar 25 cytes E informa informa informa 2016 [Presen tion in tion in tion in 7:02 AM ce] in source source source Urine data data data Color YELLOW YELLOW No No No Mar 25 of informa informa informa 2017 Urine tion in tion in tion in 7:02 AM source source source data data data Glucose NEG No No No Mar 25 [Mass/vol informati informati informati 2016 7:02 ume] in on in on in on in AM Urine by source source source Test data data data strip Ketones NEGATIV NEG mg/dL No No Mar 25 E informa informa 2016 [Presen tion in tion in 7:02 AM ce] in source source Urine data data by Automat ed test strip Mucus NEGATIV NEG No No No Mar 25 [Presen E informa informa informa 2016 ce] in tion in tion in tion in 7:02 AM Urine source source source sedimen data data data t by Light microsc opy Nitrite NEGATIV NEG No No No Mar 25 E informa informa informa 2016 [Presen tion in tion in tion in 7:02 AM ce] in source source source Urine data data data by Test strip pH of 5.0 - 8.5 No Normal No Mar 25 Urine informati informati 2016 7:02 on in on in AM source source data data Protein NEG mg/dL No No Mar 25 [Mass/vol informati informati 2016 7:02 ume] in on in on in AM Urine by source source Automated data data test strip Specific 1.005 - No Normal No Mar 25 gravity 1.030 informati informati 2016 7:02 of Urine on in on in AM source source data data Urobili 0.2 NEG E.U./dL No No Mar 25 nogen informa informa 2016 [Presen tion in tion in 7:02 AM ce] in source source Urine data data by Test strip CBC W Auto Differential panel in Blood Observa Value Referen Units Interpr Notes Date tion ce etation Range Basophils 0 - 0.2 K/MM3 Normal No Mar 25 informati 2016 6:45 [#/volume on in AM ] in source Blood by data Automated count Basophils 0.1 - 2.0 % Normal No Mar 25 / informati 2016 6:45 leukocyte on in AM s in source Blood by data Automated count Eosinophi 0.0 - 0.4 K/mm3 Normal No Mar 25 ls informati 2016 6:45 [#/volume on in AM ] in source Blood by data Automated count Eosinophi 0.1 - % Normal No Mar 25 ls/100 12.0 informati 2016 6:45 leukocyte on in AM s in source Blood by data Automated count Granulocy 1.3 - 8.0 K/mm3 High No Mar 25 presley informati 2016 6:45 [#/volume on in AM ] in source Blood by data Automated count Granulocy 37.0 - % High No Mar 25 presley/100 80.0 informati 2016 6:45 leukocyte on in AM s in source Blood by data Automated count Hematocri 42.0 - % Low No Mar 25 t [Volume 52.0 informati 2017 6:45 on in AM Fraction] source of Blood data Hemoglobi 14.1 - g/dL Low No Mar 25 n 18.0 informati 2016 6:45 [Mass/vol on in AM ume] in source Blood data Lymphocyt 0.7 - 4.5 K/mm3 Normal No Mar 25 es informati 2016 6:45 [#/volume on in AM ] in source Unspecifi data ed specimen by Automated count Lymphocyt 10 - 50 % Low No Mar 25 es informati 2017 6:45 [#/volume on in AM ] in source Unspecifi data ed specimen by Automated count Erythrocy 27 - 31.2 pg High No Mar 25 te mean informati 2017 6:45 corpuscul on in AM ar source hemoglobi data n [Entitic mass] Erythrocy 31.8 - g/dl Normal No Mar 25 te mean 35.4 informati 2017 6:45 corpuscul on in AM ar source hemoglobi data n concentra tion [Mass/vol ume] by Automated count Erythrocy 82.2 - fl Normal No Mar 25 te mean 97.8 informati 2017 6:45 corpuscul on in AM ar volume source [Entitic data volume] by Automated count Monocytes 0.1 - 1.0 K/mm3 Normal No Mar 25 informati 2017 6:45 [#/volume on in AM ] in source Blood by data Automated count Monocytes 1.7 - 9.3 % Normal No Mar 5 /100 informati 2017 6:45 leukocyte on in AM s in source Blood by data Automated count Platelet 7.4 - fl Normal No Mar 25 mean 10.4 informati 2017 6:45 volume on in AM [Entitic source volume] data in Blood by Automated count Platelets 142 - 424 K/mm3 Normal No Mar 25 informati 2017 6:45 [#/volume on in AM ] in source Blood data Erythrocy 4.6 - 6.2 M/mm3 Low No Mar 25 presley informati 2017 6:45 [#/volume on in AM ] in source Amniotic data fluid Erythrocy 11.5 - % Normal No Mar 25 te 17.5 informati 2017 6:45 distribut on in AM ion width source [Entitic data volume] by Automated count Leukocyte 4.8 - K/MM3 High No Mar 25 s 10.8 informati 2017 6:45 [#/volume on in AM ] in source Blood data Differential panel, method unspecified - Observa Value Referen Units Interpr Notes Date tion ce etation Range Neutrophi 0 - 8 % Normal No Oct 5 ls.band informati 2017 6:45 form/100 on in AM leukocyte source s in data Blood by Automated count LYMPH 7 10 - 50 % Low No Oct 5 informa 2016 tion in 6:45 AM source data Monocytes 2 - 9 % Normal No Oct 5 /100 informati 2016 6:45 leukocyte on in AM s in source Blood by data Automated count Platele NORMAL No No No No Mar 5 ts informa informa informa informa 2016 [Presen tion in tion in tion in tion in 6:45 AM ce] in source source source source Blood data data data data by Light microsc opy Neutrophi 42 - 76 % High No Mar 5 ls informati 2016 6:45 [#/volume on in AM ] in source Blood by data Automated count Cells No #CELLS No No Mar 5 Counted informati informati informati 2016 6:45 Total [#] on in on in on in AM in Blood source source source data data data Cardiac enzymes Observa Value Referen Units Interpr Notes Date tion ce etation Range Creatine 0 - 4.0 U/L Normal No Mar 5 kinase.MB informati 2016 6:45 /Creatine on in AM source kinase.to data guillaume [Ratio] in Serum or Plasma Creatine 0.0 - 3.6 ng/mL Normal No Mar 5 kinase.MB informati 2016 6:45 on in AM [Mass/vol source ume] in data Serum or Plasma Creatine 39 - 308 U/L Normal No Mar 5 kinase informati 2016 6:45 [Enzymati on in AM c source activity/ data volume] in Serum or Plasma Troponin 0.00 - ng/mL Normal No Mar 5 I.cardiac 0.06 informati 2016 6:45 on in AM [Mass/vol source ume] in data Serum or Plasma Comprehensive metabolic 2000 panel in Serum or Plasma Observa Value Referen Units Interpr Notes Date tion ce etation Range Albumin/G 1.1 - 1.8 No Low No Oct 5 lobulin informati informati 2016 6:45 [Mass on in on in AM ratio] in source source Serum or data data Plasma Albumin 3.4 - 5.0 gm/dL Low No Oct 5 [Mass/vol informati 2017 6:45 ume] in on in AM Serum or source Plasma data Alkaline 46 - 116 U/L High No Oct 5 phosphata informati 2017 6:45 se on in AM [Enzymati source c data activity/ volume] in Serum or Plasma Bilirubin 0.2 - 1.0 mg/dL Normal No Oct 5 .total informati 2017 6:45 [Mass/vol on in AM ume] in source Serum or data Plasma Urea 7 - 18 mg/dL High No Oct 5 nitrogen informati 2017 6:45 [Mass/vol on in AM ume] in source Serum or data Plasma Calcium 8.5 - mg/dL Normal No Oct 5 [Mass/vol 10.1 informati 2017 6:45 ume] in on in AM Serum or source Plasma data Chloride 98 - 107 mmoL/L Low No Oct 5 [Moles/vo informati 2017 6:45 lume] in on in AM Serum or source Plasma data Carbon 21.0 - mmoL/L Normal No Oct 5 dioxide, 32.0 informati 2017 6:45 total on in AM [Moles/vo source lume] in data Serum or Plasma Creatinin 0.70 - mg/dL High No Oct 5 e 1.30 informati 2017 6:45 [Mass/vol on in AM ume] in source Serum or data Plasma Creatinin 50 - 200 ML/MIN Normal No Oct 5 e renal informati 2017 6:45 clearance on in AM source predicted data by Cockcroft -Gault formula Estimated >60 ML/MIN No REFERENCE Oct 5 informati RANGE: 2017 6:45 glomerula on in >60 AM r source ML/MIN/1. filtratio data 73 SQUARE n rate METERSIf (GF this patient is -A merican, then multiply theresult by 1.210. Globulin 1.3 - 3.2 gm/dL Normal No Oct 5 [Mass/vol informati 2017 6:45 ume] in on in AM Serum source data Glucose 74 - 106 mg/dL High No Oct 5 [Mass/vol informati 2017 6:45 ume] in on in AM Serum or source Plasma data Potassium 3.5 - 5.1 mmoL/L Low No Oct 5 informati 2017 6:45 [Moles/vo on in AM lume] in source Serum or data Plasma Sodium 136 - 145 mmoL/L Normal No Oct 5 [Moles/vo informati 2016 6:45 lume] in on in AM Serum or source Plasma data Aspartate 15 - 37 U/L Normal No Mar 252016 6:45 aminotran on in AM sferase source [Enzymati data c activity/ volume] in Serum or Plasma Alanine 12 - 78 U/L Low No Mar 25 aminotran 2016 6:45 sferase on in AM [Enzymati source c data activity/ volume] in Serum or Plasma Protein 6.4 - 8.2 gm/dL Normal No Mar 25 [Mass/vol informati 2016 6:45 ume] in on in AM Serum or source Plasma data Urate [Mass/volume] in Serum or Plasma Observa Value Referen Units Interpr Notes Date tion ce etation Range Urate 2.6 - 7.2 mg/dL High No Feb 11 [Mass/vol informati 2016 4:10 ume] in on in PM Serum or source Plasma data CBC W Auto Differential panel in Blood Observa Value Referen Units Interpr Notes Date tion ce etation Range Basophils 0 - 0.2 K/MM3 Normal No Feb 11 inform2016 4:10 [#/volume on in PM ] in source Blood by data Automated count Basophils 0.1 - 2.0 % Normal No Feb 11 informati 2016 4:10 leukocyte on in PM s in source Blood by data Automated count Eosinophi 0.0 - 0.4 K/mm3 Normal No Feb 11 ls informati 2016 4:10 [#/volume on in PM ] in source Blood by data Automated count Eosinophi 0.1 - % Normal No Feb 11 ls/100 12.0 informati 2016 4:10 leukocyte on in PM s in source Blood by data Automated count Granulocy 1.3 - 8.0 K/mm3 High No Feb 11 presley informati 2016 4:10 [#/volume on in PM ] in source Blood by data Automated count Granulocy 37.0 - % Normal No Feb 11 presley/100 80.0 informati 2016 4:10 leukocyte on in PM s in source Blood by data Automated count Hematocri 42.0 - % Low Feb 11 t [Volume 52.0 informati 2016 4:10 on in PM Fraction] source of Blood data Hemoglobi 14.1 - g/dL Low Feb 11 n 18.0 informati 2017 4:10 [Mass/vol on in PM ume] in source Blood data Lymphocyt 0.7 - 4.5 K/mm3 Normal No Feb 11 es informati 2017 4:10 [#/volume on in PM ] in source Unspecifi data ed specimen by Automated count Lymphocyt 10 - 50 % Normal No Feb 11 es informati 2017 4:10 [#/volume on in PM ] in source Unspecifi data ed specimen by Automated count Erythrocy 27 - 31.2 pg High No Feb 11 te mean informati 2016 4:10 corpuscul on in PM ar source hemoglobi data n [Entitic mass] Erythrocy 31.8 - g/dl Normal No Feb 11 te mean 35.4 informati 2017 4:10 corpuscul on in PM ar source hemoglobi data n concentra tion [Mass/vol ume] by Automated count Erythrocy 82.2 - fl Normal No Feb 11 te mean 97.8 informati 2017 4:10 corpuscul on in PM ar volume source [Entitic data volume] by Automated count Monocytes 0.1 - 1.0 K/mm3 Normal No Feb 11 informati 2017 4:10 [#/volume on in PM ] in source Blood by data Automated count Monocytes 1.7 - 9.3 % Normal No Feb 11 /100 informati 2017 4:10 leukocyte on in PM s in source Blood by data Automated count Platelet 7.4 - fl Normal No Feb 11 mean 10.4 informati 2017 4:10 volume on in PM [Entitic source volume] data in Blood by Automated count Platelets 142 - 424 K/mm3 Normal No Feb 11 informati 2017 4:10 [#/volume on in PM ] in source Blood data Erythrocy 4.6 - 6.2 M/mm3 Low No Feb 11 presley informati 2017 4:10 [#/volume on in PM ] in source Amniotic data fluid Erythrocy 11.5 - % Normal No Feb 11 te 17.5 informati 2017 4:10 distribut on in PM ion width source [Entitic data volume] by Automated count Leukocyte 4.8 - K/MM3 High No Feb 11 s 10.8 informati 2017 4:10 [#/volume on in PM ] in source Blood data Basic metabolic panel in Blood Observa Value Referen Units Interpr Notes Date tion ce etation Range Urea 7 - 18 mg/dL High No Dec 28 nitrogen informati 2017 8:52 [Mass/vol on in AM ume] in source Serum or data Plasma Calcium 8.5 - mg/dL Normal No Dec 28 [Mass/vol 10.1 informati 2016 8:52 ume] in on in AM Serum or source Plasma data Chloride 98 - 107 mmoL/L Low No Dec 28 [Moles/vo informati 2016 8:52 lume] in on in AM Serum or source Plasma data Carbon 21.0 - mmoL/L High No Dec 28 dioxide, 32.0 informati 2016 8:52 total on in AM [Moles/vo source lume] in data Serum or Plasma Creatinin 0.70 - mg/dL High No Dec 28 e 1.30 informati 2016 8:52 [Mass/vol on in AM ume] in source Serum or data Plasma Estimated >60 ML/MIN No REFERENCE Dec 28 informati RANGE: 2017 8:52 glomerula on in >60 AM r source ML/MIN/1. filtratio data 73 SQUARE n rate METERSIf (GF this patient is -A merican, then multiply theresult by 1.210. Glucose 74 - 106 mg/dL High No Dec 28 [Mass/vol informati 2016 8:52 ume] in on in AM Serum or source Plasma data Potassium 3.5 - 5.1 mmoL/L Low alert Dec 28 2016 8:52 [Moles/vo CRITICAL AM lume] in RESULTS Serum or Plasma RESU LTS CALLED TO: ASIM Dewitt 12/28/16 0914 O'Steffanie Candelaria itlyjulio Sodium 136 - 145 mmoL/L Normal No Dec 28 [Moles/vo informati 2016 8:52 lume] in on in AM Serum or source Plasma data CBC W Auto Differential panel in Blood Observa Value Referen Units Interpr Notes Date tion ce etation Range Basophils 0 - 0.2 K/MM3 Normal No Nov 30 informati 2016 1:59 [#/volume on in PM ] in source Blood by data Automated count Basophils 0.1 - 2.0 % Normal No Nov 30 / informati 2016 1:59 leukocyte on in PM s in source Blood by data Automated count Eosinophi 0.0 - 0.4 K/mm3 Normal No Jeff 12 ls informati 2016 1:59 [#/volume on in PM ] in source Blood by data Automated count Eosinophi 0.1 - % Normal No Nov 12 ls/100 12.0 informati 2016 1:59 leukocyte on in PM s in source Blood by data Automated count Granulocy 1.3 - 8.0 K/mm3 Normal No Nov 12 presley informati 2016 1:59 [#/volume on in PM ] in source Blood by data Automated count Granulocy 37.0 - % Normal No Nov 12 presley/100 80.0 informati 2016 1:59 leukocyte on in PM s in source Blood by data Automated count Hematocri 42.0 - % Low No Nov 30 t [Volume 52.0 informati 2017 1:59 on in PM Fraction] source of Blood data Hemoglobi 14.1 - g/dL Low No Nov 30 n 18.0 informati 2016 1:59 [Mass/vol on in PM ume] in source Blood data Lymphocyt 0.7 - 4.5 K/mm3 Normal No Nov 30 es informati 2016 1:59 [#/volume on in PM ] in source Unspecifi data ed specimen by Automated count Lymphocyt 10 - 50 % Normal No Nov 30 es informati 2017 1:59 [#/volume on in PM ] in source Unspecifi data ed specimen by Automated count Erythrocy 27 - 31.2 pg High No Nov 12 te mean informati 2016 1:59 corpuscul on in PM ar source hemoglobi data n [Entitic mass] Erythrocy 31.8 - g/dl Normal No Nov 30 te mean 35.4 informati 2016 1:59 corpuscul on in PM ar source hemoglobi data n concentra tion [Mass/vol ume] by Automated count Erythrocy 82.2 - fl Normal No Nov 30 te mean 97.8 informati 2017 1:59 corpuscul on in PM ar volume source [Entitic data volume] by Automated count Monocytes 0.1 - 1.0 K/mm3 Normal No Nov 12 informati 2016 1:59 [#/volume on in PM ] in source Blood by data Automated count Monocytes 1.7 - 9.3 % Normal No Nov 12 /100 informati 2016 1:59 leukocyte on in PM s in source Blood by data Automated count Platelet 7.4 - fl Normal No Nov 12 mean 10.4 informati 2016 1:59 volume on in PM [Entitic source volume] data in Blood by Automated count Platelets 142 - 424 K/mm3 Normal No Nov 12 informati 2017 1:59 [#/volume on in PM ] in source Blood data Erythrocy 4.6 - 6.2 M/mm3 Low No Nov 12 presley informati 2017 1:59 [#/volume on in PM ] in source Amniotic data fluid Erythrocy 11.5 - % Normal No Nov 30 te 17.5 informati 2017 1:59 distribut on in PM ion width source [Entitic data volume] by Automated count Leukocyte 4.8 - K/MM3 Normal No Nov 30 s 10.8 informati 2017 1:59 [#/volume on in PM ] in source Blood data
--- OUTSIDE RECORDS SUMMARY | 2017-04-01 18:07 | External Medical Summary Rpt | CCD ---
Author Author , HERMINIO Organization [employer] Address Unknown Phone [email or web address] Purpose Continuity of Care Document - 11-30-2016 [...]
--- OUTSIDE RECORDS SUMMARY | 2017-04-01 18:07 | External Medical Summary Rpt | CCD ---
Author Author , DOMINGA ORR Address Unknown Phone [email or web address] Immunization Name Date Rout CVX Reac Dose Comm Prov Is Faci e tion ent ider Refu lity Give sed n PPV2 08-0 33 0.5 Hist [facility] No [facility] 3 1-20 mL oric 1 1 15 al Info rmat ion - Sour ce Unsp ecif ied
== END 2017-03-25 09:37 | disposition still patient (30) ==
LOC: ER 06:36
PROVIDERS: Emergency Medicine
DX: L03.115 Cellulitis of right lower limb (principal); N28.9 Disorder of kidney and ureter, unspecified; I48.2 Chronic atrial fibrillation; Z87.891 Personal history of nicotine dependence; Z88.2 Allergy status to sulfonamides; I10 Essential (primary) hypertension; E78.5 Hyperlipidemia, unspecified; D64.9 Anemia, unspecified; E03.9 Hypothyroidism, unspecified

== ENCOUNTER 2017-04-18 06:34 | Observation (INO) | payer MEDICARE, OTHER ==
[~2017-04-18] VITALS: Ht 182.9 cm; Wt 109.8 kg
[~2017-04-18 06:34] MED LIST changes: +ASPIR 8181 MG PO; +CLINDAMYCIN HC300 MG PO; +FUROSEMIDE80 MG PO; +LEVAQUIN500 MG PO; -LEVOTHYROXIN0.112 M1 PO; +LEVOTHYROXINE0.1 MG PO
[2017-04-18 06:36] VITALS: BP 140/86
--- NOTE | 2017-04-18 06:59 | Emergency Room Report ---
History of Present Illness Time Seen by MD Hitchcock57 Presenting Problem in Triage Pt arrived:Ambulance Stretcher Presenting Problem:PT STATES ON WEDNESDAY HE FELL AT HOME AND HAS HAD BACK PAIN SINCE THAT IS NOT GETTING BETTER. Onset of symptoms date/time:/ or onset unknown for:MEDICAL HX UNKNOWN Treatment Prior to Arrival: [employer]IC Provided by: Sepsis Risk Assessment: Temp: 98.7 B/P: 140/86 MAP: 104 Pulse: 66 Resp: 20 Recent fever? N Clinical Suspician of Infection? N Mental Status: 1 - Regular (Normal Baseline) Sepsis Risk:Low Sepsis Risk Have you (or family members/close friends) recently traveled outside the [facility]? N If Yes, where/when: Have you had exposure to infectious disease within the past month? N TB? Other? Specify: Comment The patient is brought in by ambulance with complaints of a back injury. He says that 4 days ago he was sitting on his bed when the [place] gave way causing him to fall down. Since then he has had pain in his lumbar and lower thoracic back. However, he states that he has been able to get up and around until today and today could not get out of bed. He says when the ambulance arrived and they stood him up he did not have any pain but then when he started to walk the pain returned. He denies numbness or weakness of his legs or loss of bowel or bladder control. He denies any other injuries. He says he has been taking Tylenol for the pain. He has home health care. He lives alone. ALLERGIES Coded Allergies: Sulfa (Sulfonamide Antibiotics) (09/28/16) Home Medications Active Scripts Carvedilol (Carvedilol 3.125MG) 6.25 MG PO BID #60 TAB Ref 2 Prov: 04/10/15 CITALOPRAM HYDROBROMIDE (Citalopram HBr) 20 MG PO DAILY #30 TAB Ref 1 Prov: 09/30/16 Clindamycin Hcl (Clindamycin 300MG) 300 MG PO TID #30 CAP Prov: 03/25/17 Levofloxacin (Levaquin 500MG) 500 MG PO DAILY #10 TAB Prov: 03/25/17 Reported Medications Pantoprazole Sodium (Pantoprazole 40MG) 40 MG PO DAILY ASPIRIN (Aspirin) 81 MG PO DAILY CARBIDOPA 25/LEVODOPA 100 (Carbidopa-Levodopa 25-100 Tab) 1 TABLET PO TID Acetaminophen (Tylenol) 650 MG PO [id number] Atorvastatin Calcium 10 MG PO QHS Levothyroxine Sodium (Levothyroxine 0.112MG) 0.112 MG PO DAILY Prednisone (Prednisone 20MG) 20 MG PO DAILY #90 TAB Mupirocin 2% (Mupirocin 2% Oint) 1 TRIP TP TID CEPHALEXIN (Keflex 500MG Capsule) 500 MG PO TID Furosemide 80 MG PO DAILY (Kwan Dickson MD) History Medical History General CAD? Yes Angina: No KS: No Hypertension? Yes Hyperlipidemia? Yes CHF? No DVT? No PE? No COPD? No Asthma? No Anemia? Yes GERD? No Gastric ulcers? No GI Bleed? No Hernia? No Thyroid Problems? Yes Hypothyroidism? Yes CVA? Yes Seizures? No Diabetes? No Insulin Dependent: No Insulin Pump: No Home FSBS? No Renal Insuffiency? No End Stage Renal Disease? No UTI? No Stones? No BPH? No GB Disease: No Nephritic Syndrome? No Asplenia? No Hepatitis? No Sickle Cell Disease? No Arthritis? No Migraines? No Cataracts? No Glaucoma? No MRSA? No HIV? No TB? No Anxiety? No Depression? No Cancer? No More? 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 Musculoskeletal back pain Psychiatric/Neurological denies numbness, denies weakness (Kwan Dickson MD) Physical Exam Vital Signs Vital Signs Date Time Temp Pulse Resp B/P Pulse O2 O2 Flow FiO2 Ox Delivery Rate 04/18 927 63 20 154/77 96 04/18 0840 61 20 136/65 97 04/18 0636 98.7 66 20 140/86 98 General Appearance no apparent distress Respiratory Status No: respiratory distress. Cardiovascular regular rate/rhythm middle card tender upper lumbar and lower thoracic area. Neurologic alert, no motor/sensory deficits (Yessi POLANCO, Kwan) Medical Decision Making LABS/Meds/Orders Pt receiving controlled substance in ED? Yes Comment [id number] rxs. Results/Orders Laboratory Tests 04/18/17924: Urine Color Pending, Urine Appearance Pending, Urine pH Pending, Ur Specific [place] Pending 04/18/17845: Lactic Acid 1.6, ESR 57 H 04/18/1746: Sodium 140, Potassium 2.3 *L, Chloride 99, Carbon Dioxide 34 H, BUN 28 H, Creatinine 1.2, Estimated Creat Clear 87, Estimated GFR (MDRD) 59, Glucose 108 H, Calcium 9.0, Total Bilirubin 0.5, AST 35, ALT 29, Alkaline Phosphatase 147 H , Total Protein 6.8, Albumin 3.4, Globulin 3.4 H, Albumin/Globulin Ratio 1.0 L , WBC 11.5 H, RBC 4.25 L, Hgb 12.9 L, Hct 38.7 L, MCV 91.1, RDW 14.8, Plt Count 239, MPV 7.9, Gran % 64.6, Gran # 7.4, Lymphocytes % 28.0, Monocytes % 6.4 , Eosinophils % 0.6, Basophils % 0.3, Lymphocytes # 3.2, Monocytes # 0.7, Eosinophils # 0.1, Basophils # 0.0, PUBS MCHC 33.3, MCH 30.3 Current Medication Orders Sig/Bennett Start time Last Medication Dose Route Stop Time Status Admin Levothyroxine Sodium 0.112 MG ONCE ONE 04/18 945 AC PO 04/18 946 Pantoprazole Sodium 40 MG ONCE ONE 04/18 945 AC IV 04/18 946 Potassium Chloride 40 MEQ ONCE ONE 04/18 945 AC PO 04/18 946 Prednisone 20 MG ONCE ONE 04/18 945 AC PO 04/18 946 Sodium Chloride 10 ML ONCE ONE 04/18 945 AC IV 04/18 946 Hydrocodone Bitart/ 1 TAB ONCE ONE 04/18 715 DC Acetaminophen PO 04/18 716 Orders Procedure Date/time Status DIET-NOTHING BY MOUTH 04/18 B Active SED RATE 04/18 855 Complete URINALYSIS/COMPLETE 04/18 838 Active LACTIC ACID 04/18 838 Complete CBC WITH AUTO DIFF 04/18 838 Complete CHEM 12 PROFILE 04/[address] SCAN REQ 04/18 708 Complete Progress - 8:00 AM: At shift change, I have discussed the patient with Dr. Del Cid, who will assume care of the patient at this time. I have discussed all clinical information including history, physical and diagnostic study results. Preliminary diagnoses based on information available at this point have been recorded by me. Controlled substance administration and critical care statement are also preliminary, as of the time of handoff. (Kwan Dickson MD) Departure Departure Disposition Still a Patient Condition STABLE Referrals Luann POLANCO,Chris (Family) ED Critical Care Critical Care No (Kwan Dickson MD) Departure Time of Disposition 936 Clinical Impression Primary Impression: Back pain Qualifiers: Back pain location: back pain in unspecified location Chronicity: acute Back pain laterality: bilateral Qualified Code: M54.9 - Dorsalgia, unspecified Secondary Impressions: Hypokalemia, Infection in abdomen Additional Instructions S: Mr. 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 He fell on the bed 3 days ago with a mattress his pain cut him in the back. He has progressive back pain this morning is unable to stand up. He was evaluated by Dr. fredy yap and has no neuro deficits and obtained a CT scan. O: Vital signs are stable afebrile. Cushingoid features with a mole on the left nose antrum. Chest is barrel shaped chest clear to auscultation anteriorly and posteriorly, heart is regular rate and rhythm, abdomen is obese soft nontender, no CVA tenderness, Back examination revealed no vertebral spinous process tenderness, the patient did have lumbar paraspinal muscle tenderness. After reviewing CT scans and labs and discussion with Dr. Mcmahon we decided to admit him for hypokalemia and gas forming bacteria. Dr. Mcmahon recommended the patient was started on clindamycin 900 and Zosyn. Discharge Counseling Counseled pt/family regarding diagnosis, test results, follow up needs (Abhilash Del Cid MD) at [phone] at [phone]
--- OUTSIDE RECORDS SUMMARY | 2017-04-18 07:18 | External Medical Summary Rpt | Continuity of Care Document ---
Author Author Organization Address Unknown Phone Unavailable Care Team Providers Care Rand Sewer Name Role Phone , Unavailable Unavailable EMS Current Medications Section EMS Allergies and Adverse Reactions EMS Past Medical History Medications Administered Section EMS Procedures Performed EMS Vital Signs EMS Patient Care Report Narrative Dispatched to residence for 76 year old male with weakness, pt pushed his life alert, and unable to get up, due to weakness,dispatched advised to signal 6 for [place] location, dispatch advised mckeon was inside of air conditioning unit outside. Advised dispatch to [facility] for lift assist,Upon arrival,unable to locate mckeon, all doors were locked , [facility] Department arrived, and was able to help locate mckeon inside house on back porch. Pt was found sitting on side of bed, alert and oriented x4, GCS 15,pt advises he has edema to both legs , seen his PCP yesterday, they wrapped both legs, he tried to get up this morning to his walker and just feels really weak in his legs, and wants to get checked out. Pt has Hx of HTN, AFib and has had 2 strokes in past.Pts house was hot, he advised heat was turned up and he wasn't able to get up to adjust it.Pt was stood with assistance and walked to doorway of bedroom where stretcher is located, unable to get stretcher into bedroom due to confined space. Pt was secured to stretcher with strapsx3, and moved to EC unit, pt vitals obtained, placed on monitor showing sinus at 96 bpm no ectopy. ALS assessment was done, stroke scale is negative, pt has no deficits,PERRL, lung sounds were equal and clear bilaterally,skin PWD, temp is normal at 98.6, abdomen is normal no tenderness or distention, pt has +3 pitting edema in both lower extremities. Pt takes lasix daily, no shortness of air. Pt refused IV, and blood sugar advises he has no sugar problems,pt advises he has no pain just feels weak today. Pt is allergic to Sulfa drugs. Pt was monitored and reassessed enroute, pt report was called to ER, upon arrival pt was taken to bed #7, pt slid himself to bed, care turned over and report was given to Cassidy Marcus [facility]
--- OUTSIDE RECORDS SUMMARY | 2017-04-18 07:18 | External Medical Summary Rpt | Continuity of Care Document ---
Author Author Organization Address Unknown Phone Unavailable Care Team Providers Care Trawl Net Maker Name Role Phone , Unavailable Unavailable EMS [...] air conditioning unit outside. Advised dispatch to [facility] for lift assist,Upon arrival,unable to locate mckeon, all doors were locked , [facility] Fire Department arrived, and was able to [...]
--- OUTSIDE RECORDS SUMMARY | 2017-04-18 07:18 | External Medical Summary Rpt | CCD ---
Author Author , DOMINGA Organization DOMINGA Address Unknown Phone [email or web address] Purpose Continuity of Care Document - 11-30-2016 [...]
--- OUTSIDE RECORDS SUMMARY | 2017-04-18 07:18 | External Medical Summary Rpt | CCD ---
Author Author , DOMINGA Organization DOMINGA Address Unknown Phone [email or web address] Purpose Continuity of Care Document - 11-30-2016 [...]
--- OUTSIDE RECORDS SUMMARY | 2017-04-18 07:19 | External Medical Summary Rpt | CCD ---
Demographics Preferred Language Niuean Marital Status Unknown Jain Affiliation Unknown Race Unknown Ethnic Group Unknown Author Author , DOMINGA ORR Address Unknown Phone Immunization Unable to retrieve immunization data due to connection failure with Immunization Registry. Please try again later.
--- OUTSIDE RECORDS SUMMARY | 2017-04-18 07:19 | External Medical Summary Rpt | CCD ---
Demographics Preferred Language British Marital Status Unknown Episcopal Affiliation Unknown Race Unknown Ethnic Group Unknown Author Author , DOMINGA ORR Address Unknown Phone Immunization Unable to retrieve immunization data due to connection failure with Immunization Registry. Please try again later.
--- NOTE | 2017-04-18 08:28 | RADIOLOGY REPORT PS360 ---
CT LUMBAR SPINE W/O CONTRAST CLINICAL INDICATION: Low back pain following injury FELL ORDERING PHYSICIAN: Kwan Dickson MD PATIENT AGE: 76 years COMPARISON: None TECHNIQUE:Axial, sagittal, and coronal images are generated and reviewed without contrast FINDINGS: No definite acute fracture or dislocation evident. There is a curvilinear lucency at the base of the osteophyte on the left at L4 inferiorly. This however is well-circumscribed and not felt to represent an acute fracture. Severe degenerative disc disease is present at L4-L5 with loss of the disc space, vacuum disc, and mild anterolisthesis of L4 x 6 mm with bulging disc and endplate osteophytes along with facet and ligamentum flavum hypertrophy with canal stenosis and bilateral lateral recess and foraminal narrowing. There is mild degenerative disc disease at L5-S1 with bulging disc and endplate hypertrophic change with bilateral lateral recess and foraminal narrowing. There is a small amount of gas present along the medial aspect of the left psoas muscle at the L4-5 S1 level. Etiology of this is uncertain. This is in the linear distribution on the coronal reformatted images. This could be related to extruded gas from the vacuum disc at L4-L5 Incidental note made of sigmoid diverticulosis. IMPRESSION: 1. No acute fracture. 2. Severe degenerative disc disease is present at L4-L5 with loss of the disc space, vacuum disc, and mild anterolisthesis of L4 x 6 mm with bulging disc and endplate osteophytes along with facet and ligamentum flavum hypertrophy with canal stenosis and bilateral lateral recess and foraminal narrowing. 3. There is mild degenerative disc disease at L5-S1 with bulging disc and endplate hypertrophic change with bilateral lateral recess and foraminal narrowing. 4. There is a small amount of gas present along the medial aspect of the left psoas muscle at the L4-5 S1 level. Etiology of this is uncertain. This is in the linear distribution on the coronal reformatted images. This could be related to extruded gas from the vacuum disc at L4-L5. Consider 24 hour follow-up exam to assure this does not increase as a gas-forming infection would be included in the differential diagnosis.
--- NOTE | 2017-04-18 08:39 | RADIOLOGY REPORT PS360 ---
CT THORACIC SPINE W/O CONTRAST INDICATION: Back pain following injury FELL ORDERING PHYSICIAN: Kwan Dickson MD PATIENT AGE: 76 years COMPARISON: Chest CT of 08/19/2015 TECHNIQUE: Axial images are obtained without contrast. Sagittal and coronal reformatted images are reviewed as well. FINDINGS: There is normal alignment. There is increased density with wedge compression changes involving the T5 vertebral body. This has developed since the previous chest CT of 08/19/2015.. The vertebral body however does have a sclerotic appearance. The margins are however somewhat ill-defined along the endplates. There is loss of height anteriorly of approximately 30% and mild loss of height posteriorly by 10%. No retropulsed fragments are evident. There is mild multilevel degenerative changes of the thoracic spine with endplate irregularity and with mild chronic wedging of T6, T7, T8, T9, and T10. These chronic changes were present on the chest CT of 08/19/2015. Incidental note made of severe coronary artery calcifications. IMPRESSION: 1. Mild wedge compression changes of T5. The T5 vertebral body has a sclerotic appearance which could be related to chronic compression or underlying blastic change. Consider MRI of the thoracic spine as well as bone scan for further evaluation to better determine the age of the fracture and to evaluate for metastatic disease.. These compression changes have developed since 08/19/2015 no retropulsed fragments are evident. 2. Chronic thoracic spondylosis 3. Coronary artery disease
[2017-04-18 09:00] LABS: HEMOGLOBIN 12.9 g/dL (14.1-18.0); LYMPH # 3.2 K/mm3 (0.7-4.5)
[2017-04-18 09:38] LABS: URINE BILIRUBIN - DIPSTICK NEGATIVE (NEG); URINE BLOOD NEGATIVE (NEG)
[2017-04-18 09:46] LABS: URINE SQUAMOUS CELLS OCC #/hpf (OCC)
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
--- OUTSIDE RECORDS SUMMARY | 2017-04-18 10:06 | External Medical Summary Rpt | Continuity of Care Document ---
Author Author Organization Address Unknown Phone Unavailable Care Team Providers Care Cotton Roll Packer Name Role Phone , Unavailable Unavailable EMS [...]
--- OUTSIDE RECORDS SUMMARY | 2017-04-18 10:07 | External Medical Summary Rpt | CCD ---
Author Author , DOMINGA Organization DOMINGA Address Unknown Phone [email or web address] Purpose Continuity of Care Document - 11-30-2016 through 2016 Results Labs Lab Lab Date Result Refere Interp Status Commen Order Detail nces retati t Range on Urinalysis with microscopy (04-18-2017 09:25) Urine CLEAR CLEAR complet appeara 017 CLEAR L ed nce 09:25 determi nation Bacteri NONE O complet a 017 NONE L ed detecti 09:25 on in urine sedimen t by Urine NEGATIV NEG complet total 017 E ed bilirub 09:25 NEGATIV in E L detecti on by test Urine NEGATIV NEG complet blood 017 E ed detecti 09:25 NEGATIV on E L Urine YELLOW YELLOW complet color 017 YELLOW ed 09:25 L Glucose = NEG complet ur 017 NEGATIV ed test 09:25 E strip Urine NEGATIV NEG complet ketones 017 E ed 09:25 NEGATIV detecti E L on by mg/dL automat ed presley Mucus NEGATIV NEG complet detecti 017 E ed on in 09:25 NEGATIV urine E L sedimen t by lig Urine NEGATIV NEG complet nitrite 017 E ed 09:25 NEGATIV detecti E L on by test strip Urine = 7.5 5.0-8.5 complet pH 017 ed 09:25 Urine = NEG complet protein 017 NEGATIV ed 09:25 E mg/dL measure ment by automat ed t Erythro NONE 0 complet cytes 017 NONE L ed detecti 09:25 rbc/hpf on in urine sedimen t Urine = 1.010 1.005-1 complet specifi 017 .030 ed c 09:25 gravity measure ment [place] OCC OCC OCC complet s 017 L ed epithel 09:25 #/hpf ial cells detecti on in u Urine 0.2 0.2 NEG complet urobili 017 L ed nogen 09:25 E.U./dL detecti on by test str Urine = NONE O complet leukocy 017 wbc/hpf ed presley 09:25 count (number /volume ) Urinalysis dipstick W Reflex Microscopic panel in Urine (04-18-2017 09:25) Bacteri NONE O complet a 017 ed [Presen 09:25 ce] in Urine sedimen t by Light microsc opy Erythro NONE 0 complet cytes 017 ed [Presen 09:25 ce] in Urine sedimen t by Light microsc opy Epithel OCC OCC complet ial 017 ed cells.s 09:25 quamous [Presen ce] in Urine sedimen t by Microsc opy high power field Urinalysis dipstick W Reflex Microscopic panel in Urine (04-18-2017 09:25) Appeara CLEAR CLEAR complet nce of 017 ed Urine 09:25 Bilirub NEGATIV NEG complet in 017 E ed [Presen 09:25 ce] in Urine by Test strip Erythro NEGATIV NEG complet cytes 017 E ed [Presen 09:25 ce] in Urine Color YELLOW YELLOW complet of 017 ed Urine 09:25 Ketones NEGATIV NEG complet 017 E ed [Presen 09:25 ce] in Urine by Automat ed test strip Mucus NEGATIV NEG complet [Presen 017 E ed ce] in 09:25 Urine sedimen t by Light microsc opy Nitrite NEGATIV NEG complet 017 E ed [Presen 09:25 ce] in Urine by Test strip Urobili 0.2 NEG complet nogen 017 ed [Presen 09:25 ce] in Urine by Test strip CBC w auto diff (04-18-2017 08:46) Automat = 0.0 0-0.2 complet ed 017 K/MM3 ed blood 08:46 basophi l count (count/ vo Baso % = 0.3 % 0.1-2.0 complet 017 ed 08:46 Automat = 0.1 0.0-0.4 complet ed 017 K/mm3 ed blood 08:46 eosinop hil count Automat = 0.6 % 0.1-12. complet ed 017 0 ed blood 08:46 eosinop hils/10 0 leukocy t Blood = 7.4 1.3-8.0 complet granulo 017 K/mm3 ed cytes 08:46 automat ed count (numb Granulo = 64.6 37.0-80 complet cyte 017 % .0 ed percent 08:46 age Blood = 38.7 42.0-52 complet hematoc 017 % .0 ed rit 08:46 (volume fractio n) Blood = 12.9 14.1-18 complet hemoglo 017 g/dL .0 ed bin 08:46 measure ment (mass/v olum Absolut = 3.2 0.7-4.5 complet e 017 K/mm3 ed lymphoc 08:46 yte count Lymphoc = 28.0 10-50 complet yte 017 % ed count, 08:46 blood, automat ed Mean = 30.3 27-31.2 complet corpusc 017 pg ed ular 08:46 hemoglo bin (MCH) determ Automat = 33.3 31.8-35 complet ed 017 g/dl .4 ed erythro 08:46 cyte mean corpusc ular h Automat = 91.1 82.2-97 complet ed 017 fl .8 ed erythro 08:46 cyte mean corpusc ular v Absolut = 0.7 0.1-1.0 complet e 017 K/mm3 ed monocyt 08:46 e count Webb % = 6.4 % 1.7-9.3 complet 017 ed 08:46 Automat = 7.9 7.4-10. complet ed 017 fl 4 ed blood 08:46 platele t mean volume arianne Blood = 239 142-424 complet platele 017 K/mm3 ed t count 08:46 Red = 4.25 4.6-6.2 complet blood 017 M/mm3 ed cell 08:46 count Automat = 14.8 11.5-17 complet ed 017 % .5 ed erythro 08:46 cyte distrib ution width Blood = 11.5 4.8-10. complet leukocy 017 K/MM3 8 ed presley 08:46 count (number /volume ) Blood lactic acid measurement (moles/vol (04-18-2017 08:46) Blood = 1.6 0.4-2.0 complet lactic 017 mmol/L ed acid 08:46 measure ment (moles/ vol Comprehensive metabolic panel (04-18-2017 08:46) Serum = 1.0 1.1-1.8 complet or 017 ed plasma 08:46 albumin /globul in mass ra Serum = 3.4 3.4-5.0 complet or 017 gm/dL ed plasma 08:46 albumin measure ment (mas Serum = 147 46-116 complet or 017 U/L ed plasma 08:46 alkalin e phospha tase arianne Serum = 0.5 0.2-1.0 complet or 017 mg/dL ed plasma 08:46 total bilirub in measure m Serum = 28 7-18 complet or 017 mg/dL ed plasma 08:46 urea nitroge n measure men Serum = 9.0 8.5-10. complet or 017 mg/dL 1 ed plasma 08:46 calcium measure ment (mas Serum = 99 98-107 complet or 017 mmoL/L ed plasma 08:46 chlorid e measure ment (mo Carbon = 34 21.0-32 complet dioxide 017 mmoL/L .0 ed 08:46 measure ment Serum = 1.2 0.70-1. complet or 017 mg/dL 30 ed plasma 08:46 creatin ine measure ment ( Estimat = 87 50-200 complet ion of 017 ML/MIN ed creatin 08:46 ine renal clearan ce Estimat = 59 >60 complet ed 017 ML/MIN ed glomeru 08:46 lar filtrat ion rate (GF Comment: REFERENCE RANGE: >60 ML/MIN/1.73 SQUARE METERS Comment: If this patient is -[place], then multiply the Comment: result by 1.210. Serum = 3.4 1.3-3.2 complet globuli 017 gm/dL ed n 08:46 measure ment (mass/v olume) Serum = 108 74-106 complet or 017 mg/dL ed plasma 08:46 glucose measure ment (mas Serum = 2.3 3.5-5.1 complet potassi 017 mmoL/L ed um 08:46 measure ment Comment: CRITICAL RESULTS Comment: RESULTS CALLED TO: SHY.CLA 04/18/17 0922 Beata Paredes Serum = 140 136-145 complet sodium 017 mmoL/L ed measure 08:46 ment Serum = 35 15-37 complet or 017 U/L ed plasma 08:46 asparta te aminotr ansfera ALT = 29 12-78 complet (SGPT) 017 U/L ed ser/beronica 08:46 s Protein = 6.8 6.4-8.2 complet total 017 gm/dL ed ser/beronica 08:46 s Erythrocyte sedimentation rate by chela (04-18-2017 08:46) Erythro = 57 0-20 complet cyte 017 mm/hr ed sedimen 08:46 tation rate by chela Urinalysis dipstick W Reflex Microscopic panel in [...] panel, method unspecified - (03-25-2017 06:45) LYMPH 7 % 10% - Low complet 017 50% ed 06:45 Platele NORMAL complet ts 017 ed [Presen 06:45 ce] in Blood by Light microsc opy
--- OUTSIDE RECORDS SUMMARY | 2017-04-18 10:07 | External Medical Summary Rpt | CCD ---
Author Author , DOMINGA ORR Address Unknown Phone [email or web address] Immunization Name Date Rout CVX Reac Dose Comm Prov Is Faci e tion ent ider Refu lity Give sed n PPV2 08-0 33 0.5 Hist [facility] No [facility] 3 1-20 mL oric 1 1 15 al Info rmat ion - Sour ce Unsp ecif ied
--- OUTSIDE RECORDS SUMMARY | 2017-04-18 10:07 | External Medical Summary Rpt | CCD ---
Author Author , DOMINGA Organization DOMINGA Address Unknown Phone [email or web address] Purpose Continuity of Care Document - 11-30-2016 [...] 017 K/mm3 ed monocyt 08:46 e count [place] % = 6.4 % 1.7-9.3 complet 017 [...] SQUARE METERS Comment: If this patient is -[place], then multiply the Comment: result by 1.210. [...]
--- OUTSIDE RECORDS SUMMARY | 2017-04-18 10:07 | External Medical Summary Rpt | CCD ---
Author Author , DOMINGA ORR Address Unknown Phone [email or web address] Immunization Name Date Rout CVX Reac Dose Comm Prov Is Faci e tion ent ider Refu lity Give sed n PPV2 08-0 33 0.5 Hist [facility] No [facility] 3 1-20 mL oric 1 1 15 al Info rmat ion - Sour ce Unsp ecif ied
--- OUTSIDE RECORDS SUMMARY | 2017-04-18 10:08 | External Medical Summary Rpt ---
Author Author DOMINGA Culver, DOMINGA [employer] Organization [employer] Address Unknown Phone Unavailable Results Urinalysis dipstick W Reflex Microscopic panel in Urine Observa Value Referen Units Interpr Notes Date tion ce etation Range Appeara CLEAR CLEAR No No No Apr 18 nce of informa informa informa 2016 Urine tion in tion in tion in 9:25 AM source source source data data data Bacteri NONE O No No No Apr 18 a informa informa informa 2016 [Presen tion in tion in tion in 9:25 AM ce] in source source source Urine data data data sedimen t by Light microsc opy Bilirub NEGATIV NEG No No No Apr 18 in E informa informa informa 2016 [Presen tion in tion in tion in 9:25 AM ce] in source source source Urine data data data by Test strip Erythro NEGATIV NEG No No No Apr 18 cytes E informa informa informa 2016 [Presen tion in tion in tion in 9:25 AM ce] in source source source Urine data data data Color YELLOW YELLOW No No No Apr 18 of informa informa informa 2016 Urine tion in tion in tion in 9:25 AM source source source data data data Glucose NEG No No No Apr 18 [Mass/vol informati informati informati 2016 9:25 ume] in on in on in on in AM Urine by source source source Test data data data strip Ketones NEGATIV NEG mg/dL No No Apr 18 E informa informa 2016 [Presen tion in tion in 9:25 AM ce] in source source Urine data data by Automat ed test strip Mucus NEGATIV NEG No No No Apr 18 [Presen E informa informa informa 2016 ce] in tion in tion in tion in 9:25 AM Urine source source source sedimen data data data t by Light microsc opy Nitrite NEGATIV NEG No No No Apr 18 E informa informa informa 2016 [Presen tion in tion in tion in 9:25 AM ce] in source source source Urine data data data by Test strip pH of 5.0 - 8.5 No Normal No Apr 18 Urine informati informati 2016 9:25 on in on in AM source source data data Protein NEG mg/dL No No Apr 18 [Mass/vol informati informati 2016 9:25 ume] in on in on in AM Urine by source source Automated data data test strip Erythro NONE 0 rbc/hpf No No Apr 18 cytes informa informa 2016 [Presen tion in tion in 9:25 AM ce] in source source Urine data data sedimen t by Light microsc opy Specific 1.005 - No Normal No Apr 18 gravity 1.030 informati informati 2016 9:25 of Urine on in on in AM source source data data Epithel OCC OCC #/hpf No No Apr 18 ial informa informa 2016 cells.s tion in tion in 9:25 AM quamous source source data data [Presen ce] in Urine sedimen t by Microsc opy high power field Urobili 0.2 NEG E.U./dL No No Apr 18 nogen informa informa 2016 [Presen tion in tion in 9:25 AM ce] in source source Urine data data by Test strip Leukocyte O wbc/hpf No No Apr 18 s informati informati 2016 9:25 [#/volume on in on in AM ] in source source Urine data data Urinalysis dipstick W Reflex Microscopic panel in Urine Observa Value Referen Units Interpr Notes Date tion ce etation Range Appeara CLEAR CLEAR No No No Apr 18 nce of informa informa informa 2016 Urine tion in tion in tion in 9:25 AM source source source data data data Bilirub NEGATIV NEG No No No Apr 18 in E informa informa informa 2016 [Presen tion in tion in tion in 9:25 AM ce] in source source source Urine data data data by Test strip Erythro NEGATIV NEG No No No Apr 18 cytes E informa informa informa 2016 [Presen tion in tion in tion in 9:25 AM ce] in source source source Urine data data data Color YELLOW YELLOW No No No Apr 18 of informa informa informa 2017 Urine tion in tion in tion in 9:25 AM source source source data data data Glucose NEG No No No Apr 18 [Mass/vol informati informati informati 2016 9:25 ume] in on in on in on in AM Urine by source source source Test data data data strip Ketones NEGATIV NEG mg/dL No No Apr 18 E informa informa 2016 [Presen tion in tion in 9:25 AM ce] in source source Urine data data by Automat ed test strip Mucus NEGATIV NEG No No No Apr 18 [Presen E informa informa informa 2016 ce] in tion in tion in tion in 9:25 AM Urine source source source sedimen data data data t by Light microsc opy Nitrite NEGATIV NEG No No No Apr 18 E informa informa informa 2016 [Presen tion in tion in tion in 9:25 AM ce] in source source source Urine data data data by Test strip pH of 5.0 - 8.5 No Normal No Apr 18 Urine informati informati 2016 9:25 on in on in AM source source data data Protein NEG mg/dL No No Apr 18 [Mass/vol informati informati 2016 9:25 ume] in on in on in AM Urine by source source Automated data data test strip Specific 1.005 - No Normal No Apr 18 gravity 1.030 informati informati 2016 9:25 of Urine on in on in AM source source data data Urobili 0.2 NEG E.U./dL No No Apr 18 nogen informa informa 2016 [Presen tion in tion in 9:25 AM ce] in source source Urine data data by Test strip Erythrocyte sedimentation rate by Westergren method Observa Value Referen Units Interpr Notes Date tion ce etation Range Erythrocy 0 - 20 mm/hr High No Apr 18 te informati 2017 8:46 sedimenta on in AM tion rate source by data Westergre n method Comprehensive metabolic 2000 panel in Serum or Plasma Observa Value Referen Units Interpr Notes Date tion ce etation Range Albumin/G 1.1 - 1.8 No Low No Apr 18 lobulin informati informati 2016 8:46 [Mass on in on in AM ratio] in source source Serum or data data Plasma Albumin 3.4 - 5.0 gm/dL Normal No Apr 18 [Mass/vol informati 2016 8:46 ume] in on in AM Serum or source Plasma data Alkaline 46 - 116 U/L High No Apr 18 phosphata informati 2016 8:46 se on in AM [Enzymati source c data activity/ volume] in Serum or Plasma Bilirubin 0.2 - 1.0 mg/dL Normal No Apr 18 .total informati 2016 8:46 [Mass/vol on in AM ume] in source Serum or data Plasma Urea 7 - 18 mg/dL High No Apr 18 nitrogen informati 2016 8:46 [Mass/vol on in AM ume] in source Serum or data Plasma Calcium 8.5 - mg/dL Normal No Apr 18 [Mass/vol 10.1 informati 2016 8:46 ume] in on in AM Serum or source Plasma data Chloride 98 - 107 mmoL/L Normal No Apr 18 [Moles/vo informati 2016 8:46 lume] in on in AM Serum or source Plasma data Carbon 21.0 - mmoL/L High No Apr 18 dioxide, 32.0 informati 2016 8:46 total on in AM [Moles/vo source lume] in data Serum or Plasma Creatinin 0.70 - mg/dL Normal No Apr 18 e 1.30 informati 2016 8:46 [Mass/vol on in AM ume] in source Serum or data Plasma Creatinin 50 - 200 ML/MIN Normal No Apr 18 e renal informati 2016 8:46 clearance on in AM source predicted data by Cockcroft -Gault formula Estimated >60 ML/MIN No REFERENCE Apr 18 informati RANGE: 2017 8:46 glomerula on in >60 AM r source ML/MIN/1. filtratio data 73 SQUARE n rate METERSIf (GF this patient is -A mer[place], then multiply theresult by 1.210. Globulin 1.3 - 3.2 gm/dL High No Apr 18 [Mass/vol informati 2016 8:46 ume] in on in AM Serum source data Glucose 74 - 106 mg/dL High No Apr 18 [Mass/vol informati 2016 8:46 ume] in on in AM Serum or source Plasma data Potassium 3.5 - 5.1 mmoL/L Low alert Apr 18 2016 8:46 [Moles/vo CRITICAL AM lume] in RESULTS Serum or Plasma RESU LTS CALLED TO: LEXII 04/18/17 0922 Beata Paredes Sodium 136 - 145 mmoL/L Normal No Apr 18 [Moles/vo informati 2016 8:46 lume] in on in AM Serum or source Plasma data Aspartate 15 - 37 U/L Normal No Apr 18 informati 2016 8:46 aminotran on in AM sferase source [Enzymati data c activity/ volume] in Serum or Plasma Alanine 12 - 78 U/L Normal No Apr 18 aminotran informati 2016 8:46 sferase on in AM [Enzymati source c data activity/ volume] in Serum or Plasma Protein 6.4 - 8.2 gm/dL Normal No Apr 18 [Mass/vol informati 2016 8:46 ume] in on in AM Serum or source Plasma data Lactate [Moles/volume] in Blood Observa Value Referen Units Interpr Notes Date tion ce etation Range Lactate 0.4 - 2.0 mmol/L Normal No Apr 18 [Moles/vo informati 2016 8:46 lume] in on in AM Blood source data CBC W Auto Differential panel in Blood Observa Value Referen Units Interpr Notes Date tion ce etation Range Basophils 0 - 0.2 K/MM3 Normal No Apr 18 informati 2016 8:46 [#/volume on in AM ] in source Blood by data Automated count Basophils 0.1 - 2.0 % Normal No Apr 18 informati 2016 8:46 leukocyte on in AM s in source Blood by data Automated count Eosinophi 0.0 - 0.4 K/mm3 Normal No Apr 18 ls informati 2016 8:46 [#/volume on in AM ] in source Blood by data Automated count Eosinophi 0.1 - % Normal No Apr 18 ls/100 12.0 informati 2016 8:46 leukocyte on in AM s in source Blood by data Automated count Granulocy 1.3 - 8.0 K/mm3 Normal No Apr 18 presley informati 2016 8:46 [#/volume on in AM ] in source Blood by data Automated count Granulocy 37.0 - % Normal No Apr 18 presley/100 80.0 informati 2016 8:46 leukocyte on in AM s in source Blood by data Automated count Hematocri 42.0 - % Low No Apr 18 t [Volume 52.0 informati 2017 8:46 on in AM Fraction] source of Blood data Hemoglobi 14.1 - g/dL Low No Apr 18 n 18.0 informati 2016 8:46 [Mass/vol on in AM ume] in source Blood data Lymphocyt 0.7 - 4.5 K/mm3 Normal No Apr 18 es informati 2016 8:46 [#/volume on in AM ] in source Unspecifi data ed specimen by Automated count Lymphocyt 10 - 50 % Normal No Apr 18 es informati 2016 8:46 [#/volume on in AM ] in source Unspecifi data ed specimen by Automated count Erythrocy 27 - 31.2 pg Normal No Apr 18 te mean informati 2016 8:46 corpuscul on in AM ar source hemoglobi data n [Entitic mass] Erythrocy 31.8 - g/dl Normal No Apr 18 te mean 35.4 informati 2016 8:46 corpuscul on in AM ar source hemoglobi data n concentra tion [Mass/vol ume] by Automated count Erythrocy 82.2 - fl Normal No Apr 18 te mean 97.8 informati 2016 8:46 corpuscul on in AM ar volume source [Entitic data volume] by Automated count Monocytes 0.1 - 1.0 K/mm3 Normal No Apr 18 informati 2016 8:46 [#/volume on in AM ] in source Blood by data Automated count Monocytes 1.7 - 9.3 % Normal No Apr 18 /100 informati 2017 8:46 leukocyte on in AM s in source Blood by data Automated count Platelet 7.4 - fl Normal No Apr 18 mean 10.4 informati 2016 8:46 volume on in AM [Entitic source volume] data in Blood by Automated count Platelets 142 - 424 K/mm3 Normal No Apr 18 informati 2016 8:46 [#/volume on in AM ] in source Blood data Erythrocy 4.6 - 6.2 M/mm3 Low No Apr 18 presley informati 2017 8:46 [#/volume on in AM ] in source Amniotic data fluid Erythrocy 11.5 - % Normal No Apr 18 te 17.5 informati 2016 8:46 distribut on in AM ion width source [Entitic data volume] by Automated count Leukocyte 4.8 - K/MM3 High No Apr 18 s 10.8 informati 2016 8:46 [#/volume on in AM ] in source Blood data Urinalysis dipstick W Reflex Microscopic panel [...] No Mar 25 of informa informa informa 2016 Urine tion [...] No No Mar 25 [Mass/vol informati informati 2017 7:02 ume] in on in on in [...] No Mar 25 of informa informa informa 2016 Urine tion [...] - 2.0 % Normal No Mar 25 /100 informati 2016 6:45 leukocyte on in [...] No Mar 25 t [Volume 52.0 informati 2016 6:45 on in AM Fraction] source of [...] % Low No Mar 25 es informati 2016 6:45 [#/volume on in AM ] in source Unspecifi data ed specimen by Automated count Erythrocy 27 - 31.2 pg High No Mar 25 te mean informati 2016 6:45 corpuscul on in AM ar source hemoglobi data n [Entitic mass] Erythrocy 31.8 - g/dl Normal No Mar 25 te mean 35.4 informati 2016 6:45 corpuscul on in AM ar source hemoglobi data n concentra tion [Mass/vol ume] by Automated count Erythrocy 82.2 - fl Normal No Mar 25 te mean 97.8 informati 2016 6:45 corpuscul on in AM ar volume source [Entitic data volume] by Automated count Monocytes 0.1 - 1.0 K/mm3 Normal No Mar 25 informati 2016 6:45 [#/volume on in AM ] in source Blood by data Automated count Monocytes 1.7 - 9.3 % Normal No Mar 25 /100 informati 2017 6:45 leukocyte on in AM s in source Blood by data Automated count Platelet 7.4 - fl Normal No Mar 25 mean 10.4 informati 2017 6:45 volume on in AM [Entitic source volume] data in Blood by Automated count Platelets 142 - 424 K/mm3 Normal No Mar 25 informati 2016 6:45 [#/volume on in AM ] in source Blood data Erythrocy 4.6 - 6.2 M/mm3 Low No Mar 25 presley informati 2016 6:45 [#/volume on in AM ] in source Amniotic data fluid Erythrocy 11.5 - % Normal No Mar 25 te 17.5 informati 2016 6:45 distribut on in AM ion width source [Entitic data volume] by Automated count Leukocyte 4.8 - K/MM3 High No Mar 25 s 10.8 informati 2016 6:45 [#/volume on in AM ] in source Blood data Differential panel, method unspecified - Observa Value Referen Units Interpr Notes Date tion ce etation Range Neutrophi 0 - 8 % Normal No Mar 25 ls.band informati 2016 6:45 form/100 on in AM leukocyte source s in data Blood by Automated count LYMPH 7 10 - 50 % Low No Mar 25 informa 2017 tion in 6:45 AM source data Monocytes 2 - 9 % Normal No Mar 25 /100 informati 2016 6:45 leukocyte on in AM s in source Blood by data Automated count Platele NORMAL No No No No Mar 25 ts informa informa informa informa 2016 [Presen tion in tion in tion in tion in 6:45 AM ce] in source source source source Blood data data data data by Light microsc opy Neutrophi 42 - 76 % High No Mar 25 ls informati 2016 6:45 [#/volume on in AM ] in source Blood by data Automated count Cells No #CELLS No No Mar 25 Counted informati informati informati 2017 6:45 Total [#] on in on in on in AM in Blood source source source data data data Cardiac enzymes Observa Value Referen Units Interpr Notes Date tion ce etation Range Creatine 0 - 4.0 U/L Normal No Mar 25 kinase.MB informati 2016 6:45 /Creatine on in AM source kinase.to data guillaume [Ratio] in Serum or Plasma Creatine 0.0 - 3.6 ng/mL Normal No Mar 25 kinase.MB informati 2017 6:45 on in AM [Mass/vol source ume] in data Serum or Plasma Creatine 39 - 308 U/L Normal No Mar 25 kinase informati 2017 6:45 [Enzymati on in AM c source activity/ data volume] in Serum or Plasma Troponin 0.00 - ng/mL Normal No Mar 25 I.cardiac 0.06 informati 2016 6:45 on in AM [Mass/vol source ume] in data Serum or Plasma Comprehensive metabolic 2000 panel in Serum or Plasma Observa Value Referen Units Interpr Notes Date ti ce etation Range Albumin/G 1.1 - 1.8 No Low No Mar 25 lobulin informati informati 2016 6:45 [Mass on in on in AM ratio] in source source Serum or data data Plasma Albumin 3.4 - 5.0 gm/dL Low No Mar 25 [Mass/vol informati 2016 6:45 ume] in on in AM Serum or source Plasma data Alkaline 46 - 116 U/L High No Mar 25 phosphata informati 2016 6:45 se on in AM [Enzymati source c data activity/ volume] in Serum or Plasma Bilirubin 0.2 - 1.0 mg/dL Normal No Mar 25 .total informati 2017 6:45 [Mass/vol on in [...] High No Oct 5 e 1.30 informati 2016 6:45 [Mass/vol on in AM ume] in source Serum or data Plasma Creatinin 50 - 200 ML/MIN Normal No Oct 5 e renal informati 2016 6:45 clearance on in AM source predicted data by Cockcroft -Gault formula Estimated >60 ML/MIN No REFERENCE Oct 5 informati RANGE: 2017 6:45 glomerula on in >60 AM r source ML/MIN/1. filtratio data 73 SQUARE n rate METERSIf (GF this patient is -[place] mer[place], then multiply theresult by 1.210. Globulin 1.3 - 3.2 gm/dL Normal No Oct 5 [Mass/vol informati 2016 6:45 ume] in on in AM Serum source data Glucose 74 - 106 mg/dL High No Oct 5 [Mass/vol informati 2016 6:45 ume] in on in AM Serum or source Plasma data Potassium 3.5 - 5.1 mmoL/L Low No Oct 5 informati 2016 6:45 [Moles/vo on in AM lume] in source Serum or data Plasma Sodium 136 - 145 mmoL/L Normal No Oct 5 [Moles/vo informati 2017 6:45 lume] in on in AM Serum or source Plasma data Aspartate 15 - 37 U/L Normal No Oct 5 informati 2016 6:45 aminotran on in AM sferase source [Enzymati data c activity/ volume] in Serum or Plasma Alanine 12 - 78 U/L Low No Oct 5 aminotran informati 2016 6:45 sferase on in AM [Enzymati [...] - 0.2 K/MM3 Normal No Feb 11 informati 2016 4:10 [#/volume on in PM ] in source Blood by data Automated count Basophils 0.1 - 2.0 % Normal No Feb 11 / informati 2016 4:10 leukocyte on in PM [...] count Hematocri 42.0 - % Low No Feb 11 t [Volume 52.0 informati 2016 4:10 on in PM Fraction] source of Blood data Hemoglobi 14.1 - g/dL Low No Feb 11 n 18.0 informati 2016 4:10 [Mass/vol on in PM ume] in source Blood data Lymphocyt 0.7 - 4.5 K/mm3 Normal No Feb 11 es informati 2016 4:10 [#/volume on in PM ] in source Unspecifi data ed specimen by Automated count Lymphocyt 10 - 50 % Normal No Feb 11 es informati 2016 4:10 [#/volume on in PM ] in source Unspecifi data ed specimen by Automated count Erythrocy 27 - 31.2 pg High No Feb 11 te mean informati 2016 4:10 corpuscul on in PM ar source hemoglobi data n [Entitic mass] Erythrocy 31.8 - g/dl Normal No Feb 11 te mean 35.4 informati 2016 4:10 corpuscul on in PM ar source hemoglobi data n concentra tion [Mass/vol ume] by Automated count Erythrocy 82.2 - fl Normal No Feb 11 te mean 97.8 informati 2016 4:10 corpuscul on in PM ar volume [...] Automated count Platelet 7.4 - fl Normal Feb 11 mean 10.4 informati 2016 4:10 volume on in PM [Entitic source [...] Normal No Feb 11 te 17.5 informati 2016 4:10 distribut on in PM ion width source [Entitic data volume] by Automated count Leukocyte 4.8 - K/MM3 High No Feb 11 s 10.8 informati 2016 4:10 [#/volume on in PM ] in source Blood data Basic metabolic panel in Blood Observa Value Referen Units Interpr Notes Date tion ce etation Range Urea 7 - 18 mg/dL High No Dec 28 nitrogen informati 2016 8:52 [Mass/vol on in AM ume] in source Serum or data Plasma Calcium 8.5 - mg/dL Normal No Dec 28 [Mass/vol 10.1 informati 2017 8:52 ume] in on in AM Serum [...] LTS CALLED TO: ASIM Dewitt 12/28/16 0914 O'BariSteffanie itlyn Sodium 136 - 145 mmoL/L Normal No [...] - 2.0 % Normal No Nov 30 informati 2016 1:59 leukocyte on in PM s in source Blood by data Automated count Eosinophi 0.0 - 0.4 K/mm3 Normal No Nov 30 ls informati 2016 1:59 [#/volume on in PM ] in source Blood by data Automated count Eosinophi 0.1 - % Normal No Nov 30 ls/100 12.0 informati 2016 1:59 leukocyte on in PM s in source Blood by data Automated count Granulocy 1.3 - 8.0 K/mm3 Normal No Nov 30 presley informati 2016 1:59 [#/volume on in PM ] in source Blood by data Automated count Granulocy 37.0 - % Normal No Nov 30 presley/100 80.0 informati 2017 1:59 leukocyte on in PM s in source Blood by data Automated count Hematocri 42.0 - % Low No Nov 30 t [Volume 52.0 informati 2017 1:59 on in PM Fraction] source of Blood data Hemoglobi 14.1 - g/dL Low No Nov 30 n 18.0 informati 2017 1:59 [Mass/vol on in PM ume] in source Blood data Lymphocyt 0.7 - 4.5 K/mm3 Normal No Nov 30 es informati 2017 1:59 [#/volume on in PM ] in source Unspecifi data ed specimen by Automated count Lymphocyt 10 - 50 % Normal No Nov 30 es informati 2017 1:59 [#/volume on in PM ] in source Unspecifi data ed specimen by Automated count Erythrocy 27 - 31.2 pg High No Nov 30 te mean informati 2016 1:59 corpuscul on in PM ar source hemoglobi data n [Entitic mass] Erythrocy 31.8 - g/dl Normal No Nov 30 te mean 35.4 informati 2017 1:59 corpuscul on in PM ar source hemoglobi data n concentra tion [Mass/vol ume] by Automated count Erythrocy 82.2 - fl Normal No Nov 30 te mean 97.8 informati 2017 1:59 corpuscul on in PM ar volume source [Entitic data volume] by Automated count Monocytes 0.1 - 1.0 K/mm3 Normal No Nov 30 informati 2017 1:59 [#/volume on in PM ] in source Blood by data Automated count Monocytes 1.7 - 9.3 % Normal No Nov 12 /100 informati 2017 1:59 leukocyte on in PM s in source Blood by data Automated count Platelet 7.4 - fl Normal No Nov 30 mean 10.4 informati 2017 1:59 volume on in PM [Entitic source volume] data in Blood by Automated count Platelets 142 - 424 K/mm3 Normal No Nov 30 informati 2017 1:59 [#/volume on in PM ] in source Blood data Erythrocy 4.6 - 6.2 M/mm3 Low No Nov 30 presley informati 2017 1:59 [#/volume on in PM ] in source Amniotic data fluid Erythrocy 11.5 - % Normal No Nov 12 te 17.5 informati 2017 1:59 distribut on in PM ion width source [Entitic data volume] by Automated count Leukocyte 4.8 - K/MM3 Normal No Nov 12 s 10.8 informati 2017 1:59 [#/volume on in PM ] in source Blood data
[2017-04-18 11:09] VITALS: BP 129/68
[2017-04-18 11:11] VITALS: BP 129/68
[2017-04-18] MEDS ORDERED: METOLAZONE 2.52.5 MG PO (11:36)
[2017-04-18] MEDS ORDERED: MECLIZINE HYDRO25 MG PO (11:37)
[2017-04-18] MEDS ORDERED: POTASSIUM CHLO20 ME2 PO (11:38)
[2017-04-18 15:38] VITALS: BP 122/53
[2017-04-18 20:15] VITALS: BP 141/70
[2017-04-18 20:17] VITALS: BP 134/68; BP 141/70
[2017-04-19 04:00] VITALS: BP 150/81
[2017-04-19 05:20] LABS: HEMOGLOBIN 12.1 g/dL (14.1-18.0); LYMPH # 3.1 K/mm3 (0.7-4.5); LYMPH % 25.6 % (10-50)
--- NOTE | 2017-04-19 07:24 | PHARMACY CLINIC NOTE ---
Patient Demographics Patient Demographics Admission date: 04/18/17 Date: 04/19/17 Time: 0724 Allergies Coded Allergies: Sulfa (Sulfonamide Antibiotics) (09/28/16) HEIGHT- FT: 6 IN: 0.00 K.771 VTE General Information Labs: Laboratory Tests 04/19 04/18 0500 0846 Hematology Hgb (14.1 - 18.0 g/dL) 12.1 L 12.9 L Hct (42.0 - 52.0 %) 37.0 L 38.7 L Plt Count (142 - 424 K/mm3) 242 239 Disclaimer The following section includes nursing documentation that has been pulled in for pharmacy review. Patient's VTE score: 2 Patient's VTE Risk: VERY LOW RISK Clinical trial participant? No VTE prophylaxis NQF 0371 VTE prophylaxis ordered? Yes Type of prophylaxis/treatment: Lovenox at 0724
[2017-04-19 08:00] VITALS: BP 127/78
--- NOTE | 2017-04-19 08:08 | Discharge Summary Standard ---
Demographics: Admit date: 04/18/17 Chief complaint: Fall with back pain PRIMARY DIAGNOSIS: HYPOKALEMIA, ABDOMINAL INFECTION, TX COMPRESSION FX Allergies: Coded Allergies: Sulfa (Sulfonamide Antibiotics) (09/28/16) History of present illness: History of present illness: 76-year-old with multiple chronic medical problems who at home yesterday morning was reaching onto a piece of furniture in his bedroom and fell backwards onto his bed, apparently breaking the box spring of his mattress and falling down "into the hole." He had back pain in upper areas, and was unable to move out of the bed. Finally he was brought by EMS to the emergency department. Workup revealed no neurologic imaging changes but he did have a T5 compression fracture of uncertain etiology/age but new since 2016. He was also hypokalemic. He was admitted observation for further diagnostic testing and observation overnight. Past medical history: Family HX Diabetes No CAD Yes Hypertension Yes Hyperlipidemia No Cancer No TB No Immunization HX DT/Tetanus Unknown Flu 2017-18FSN Pneumonia Received In Past TB Test in last year No General CAD? Yes Angina: No [place]: No Hypertension? Yes Hyperlipidemia? Yes CHF? No DVT? No PE? No COPD? No Asthma? No Anemia? Yes GERD? No Gastric ulcers? No GI Bleed? No Hernia? No Thyroid Problems? Yes Hypothyroidism? Yes CVA? Yes Seizures? No Diabetes? No Insulin Dependent: No Insulin Pump: No Home FSBS? No Renal Insuffiency? No UTI? No Stones? No BPH? No GB Disease: No Nephritic Syndrome? No Asplenia? No Hepatitis? No Sickle Cell Disease? No Arthritis? No Migraines? No Cataracts? No Glaucoma? No MRSA? No HIV? No TB? No Anxiety? No Depression? No Cancer? No More? 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 Current home meds: Active Scripts Carvedilol (Carvedilol 3.125MG) 6.25 MG PO BID #60 TAB Ref 2 Prov: 04/10/15 Reported Medications LEVOTHYROXINE SOD (Synthroid) 0.1 MG PO DAILY ASPIRIN (Aspirin) 81 MG PO DAILY CARBIDOPA 25/LEVODOPA 100 (Carbidopa-Levodopa 25-100 Tab) 1 TABLET PO TID Acetaminophen (Tylenol) 650 MG PO [id number] Atorvastatin Calcium 10 MG PO QHS Prednisone (Prednisone 20MG) 20 MG PO DAILY #90 TAB Mupirocin 2% (Mupirocin 2% Oint) 1 TRIP TP TID Metolazone (Metolazone 2.5MG) 2.5 MG PO DAILY Meclizine Hcl (Meclizine Hydrochloride) 25 MG PO TIDP PRN DIZZINESS POTASSIUM CHL (Potassium Chloride) 20 MEQ PO BID Furosemide 80 MG PO DAILY Social Hx: Smoking HX Tobacco No Are you/the child exposed to second-hand smoke: No Alcohol Alcohol: No Hx of Drug Use Drug Use? No Patien't marital status is Patient's support system is fair Review of systems: Constitutional malaise, weakness. No: fever. Respiratory No: no symptoms reported. Cardiovascular edema Gastrointestinal/Abdominal No no symptoms reported Genitourinary No: no symptoms reported. Musculoskeletal see HPI. Neurological Yes: weakness. Exam: Lab data for last 24 hours: Laboratory Tests 04/19/17 0500: Sodium 138, Potassium 3.5, Chloride 99, Carbon Dioxide 30, BUN 24 H, Creatinine 1.3, Estimated Creat Clear 76, Estimated GFR (MDRD) 54, Glucose 143 H, Calcium 8.7, WBC 12.2 H, RBC 4.01 L, Hgb 12.1 L, Hct 37.0 L, MCV 92.3, RDW 14.6, Plt Count 242, MPV 7.8, Gran % 69.4, Gran # 8.5 H, Lymphocytes % 25.6, Monocytes % 4.7, Eosinophils % 0.2, Basophils % 0.2, Lymphocytes # 3.1, Monocytes # 0.6, Eosinophils # 0.0, Basophils # 0.0, PUBS MCHC 32.8, MCH 30.2 04/18/17 1410: Lactic Acid 2.0 04/18/17 0925: Urine Color YELLOW, Urine Appearance CLEAR, Urine pH 7.5, Ur Specific [place] 1.010, Urine Protein NEGATIVE, Urine Ketones NEGATIVE, Urine Blood NEGATIVE, Urine Nitrate NEGATIVE, Urine Bilirubin NEGATIVE, Urine Urobilinogen 0.2, Ur Leukocyte Esterase NEGATIVE, Urine RBC NONE, Urine WBC NONE, Ur Squamous Epith Cells OCC, Urine Bacteria NONE, Urine Glucose NEGATIVE 04/18/17 0846: Lactic Acid 1.6, ESR 57 H 04/18/17 0846: Sodium 140, Potassium 2.3 *L, Chloride 99, Carbon Dioxide 34 H, BUN 28 H, Creatinine 1.2, Estimated Creat Clear 87, Estimated GFR (MDRD) 59, Glucose 108 H, Calcium 9.0, Total Bilirubin 0.5, AST 35, ALT 29, Alkaline Phosphatase 147 H , Total Protein 6.8, Albumin 3.4, Globulin 3.4 H, Albumin/Globulin Ratio 1.0 L , WBC 11.5 H, RBC 4.25 L, Hgb 12.9 L, Hct 38.7 L, MCV 91.1, RDW 14.8, Plt Count 239, MPV 7.9, Gran % 64.6, Gran # 7.4, Lymphocytes % 28.0, Monocytes % 6.4 , Eosinophils % 0.6, Basophils % 0.3, Lymphocytes # 3.2, Monocytes # 0.7, Eosinophils # 0.1, Basophils # 0.0, PUBS MCHC 33.3, MCH 30.3 Admission vital signs: 1ST Vital Signs Result Date Time Pulse Ox 98 04/18 636 B/P 140/86 04/18 636 Temp 98.7 04/18 636 Pulse 66 04/18 636 Resp 20 04/18 636 O2 Delivery ROOM AIR 04/18 1109 Additional information: Patient is alert and oriented. His weight has actually improved since his last outpatient visit, his edema is markedly improved over his baseline. He is able to move his arms and legs well. He has some back pain in the muscular areas of the RIGHT thoracic area. No deformity. Wearing compression stockings. Heart rate regular. Lungs clear in anterior soliman. Hospital Course Hospital Course: Patient was admitted overnight, potassium was replaced and this morning is normal. He's able to eat and drink well and has been up and around a couple of times to go to the bathroom. He wishes to be discharged home and I think this is reasonable. His compression fracture is not unstable and is probably old. We will reinitiate home health for PT/OT/nursing for his edema issues. Short-term pain medication for his back pain. Will order outpatient labs in one week through home health for his potassium follow-up. Please note patient needs PT/OT/nursing evaluation/medical management for edema, diastolic congestive heart failure, thoracic compression fracture and ataxia issues. He is homebound because of pain from his back and edema with difficulty walking. Medications Medications: Discharge meds are as noted. Follow up Follow up in office in: 7 DAYS with: Lizbeth Smith APRN at [phone]
[2017-04-19] MEDS ORDERED: TYLENOL WITH CO1 TA1 PO (08:10)
[2017-04-19 09:30] VITALS: BP 127/78
[2017-04-19 14:40] VITALS: BP 127/78
== END 2017-04-19 13:48 | disposition home health service (06) ==
LOC: ER 06:34 → 2ND 09:51 → ER 09:51 → 2ND 10:58
PROVIDERS: Emergency Medicine
DX: S22.050A Wedge compression fracture of T5-T6 vertebra, initial encounter for closed fracture (principal); W17.89XA Other fall from one level to another, initial encounter; I50.30 Unspecified diastolic (congestive) heart failure; R26.0 Ataxic gait; I10 Essential (primary) hypertension; E87.6 Hypokalemia
CPT/HCPCS: G8978; G8979; G8980; G0378; J2543

== ENCOUNTER 2017-04-29 12:42 | Inpatient (IN) | payer MEDICARE, OTHER ==
[~2017-04-29] VITALS: Ht 182.9 cm; Wt 104.0 kg
[~2017-04-29 12:42] MED LIST changes: +MECLIZINE HYDRO25 MG PO; +METOLAZONE 2.52.5 MG PO; +POTASSIUM CHLO20 ME2 PO; +TYLENOL WITH CO1 TA1 PO
[2017-04-29 12:44] VITALS: BP 109/79
--- NOTE | 2017-04-29 13:00 | Emergency Room Report ---
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 Onset of symptoms date/time:/ or onset unknown for:MEDICAL HX UNKNOWN Treatment Prior to Arrival: MEDICAL TRANSCRIPTION RADIOLOGY Provided by: Sepsis Risk Assessment: Temp: 98.3 B/P: 109/79 MAP: 89 Pulse: 93 Resp: 18 Recent fever? N Clinical Suspician of Infection? N Mental Status: 1 - Regular (Normal Baseline) Sepsis Risk:Low Sepsis Risk Have you (or family members/close friends) recently traveled outside the [place]? N If Yes, where/when: Have you had exposure to infectious disease within the past month? TB? Other? 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 HE HAS NOT HAD MEDS IN 2 DAYS. HE HAS NO ENERGY AND UNABLE TO CARE FOR HIM SELF AND HE IS WELLING FOR NH PLACEMENT. HE HAS NO ACTIVE COMPLAINT OF CHEST OR ABDOMINAL PAIN. Source patient, RN notes reviewed, EMS, old records Exam Limitations no limitations ALLERGIES Coded Allergies: Sulfa (Sulfonamide Antibiotics) (04/29/17) Home Medications Active Scripts Carvedilol (Carvedilol 3.125MG) 6.25 MG PO BID #60 TAB Ref 2 Prov: 04/10/15 ACETAMINOPHEN WITH CODEINE (Tylenol With Codeine #3 Tablet) 1-2 TAB PO Q6HP PRN BREAKTHROUGH MOD TO SEV PAIN #20 TAB Prov: 04/19/17 Reported Medications LEVOTHYROXINE SOD (Synthroid) 0.1 MG PO DAILY ASPIRIN (Aspirin) 81 MG PO DAILY CARBIDOPA 25/LEVODOPA 100 (Carbidopa-Levodopa 25-100 Tab) 1 TABLET PO TID Acetaminophen (Tylenol) 650 MG PO [id number] Atorvastatin Calcium 10 MG PO QHS Prednisone (Prednisone 20MG) 20 MG PO DAILY #90 TAB Mupirocin 2% (Mupirocin 2% Oint) 1 TRIP TP TID Metolazone (Metolazone 2.5MG) 2.5 MG PO DAILY Meclizine Hcl (Meclizine Hydrochloride) 25 MG PO TIDP PRN DIZZINESS POTASSIUM CHL (Potassium Chloride) 20 MEQ PO BID Furosemide 80 MG PO DAILY History Medical History General CAD? Yes Angina: No [place]: No Hypertension? Yes Hyperlipidemia? Yes CHF? No DVT? No PE? No COPD? No Asthma? No Anemia? Yes GERD? No Gastric ulcers? No GI Bleed? No Hernia? No Thyroid Problems? Yes Hypothyroidism? Yes CVA? Yes Seizures? No Diabetes? No Insulin Dependent: No Insulin Pump: No Home FSBS? No Renal Insuffiency? No End Stage Renal Disease? No UTI? No Stones? No BPH? No GB Disease: No Nephritic Syndrome? No Asplenia? No Hepatitis? No Sickle Cell Disease? No Arthritis? No Migraines? No Cataracts? No Glaucoma? No MRSA? No HIV? No TB? No Anxiety? No Depression? No Cancer? No More? 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 Respiratory no symptoms reported Cardiovascular no symptoms reported Gastrointestinal no symptoms reported Genitourinary no symptoms reported. Musculoskeletal see HPI, joint pain (left KNEE PAIN) Skin no symptoms reported Psychiatric/Neurological no symptoms reported Physical Exam Vital Signs Vital Signs Date Time Temp Pulse Resp B/P Pulse O2 O2 Flow FiO2 Ox Delivery Rate 04/29 1244 98.3 93 18 109/79 99 Cushingoid features (Maria Eugenia POLANCO,[facility]) - WBC >12,000 or <4,000 or 10% bands? 2 or more SIRS Criteria Met? B/P:109/79 MAP:89 Creatinine >2.0? UA output<0.5ml/kg/hr for 2 hrs? Platelet count >100,000? Lactate >2.0mmol/1? INR >1.2 or PTT > than 60 sec? Evidence of Organ Dysfunction? Provider documented clinical suspician of infection? N Sepsis Criteria Count: 1 Sepsis Risk: Low Sepsis Risk General Appearance normal appearance, WD/WN Eye Exam - bilateral eye normal exam, bilateral eye PERRL, bilateral eye EOMI Ear, Nose, Throat hearing grossly normal, normal ENT inspection Neck normal inspection, non-tender, supple, full range of motion Respiratory Status Yes: trachea midline, chest symmetrical, non tender chest. No: respiratory distress. Lung Sounds bilateral: normal breath sounds, lungs clear. Cardiovascular normal exam, regular rate/rhythm, no peripheral edema, no gallop, no JVD, no murmur, no rub, normal peripheral pulses Peripheral Pulses Pulses normal Yes Gastrointestinal normal bowel sounds, normal exam, non tender, soft, no organomegaly Back normal inspection, no CVA tenderness, no vertebral tenderness Neurologic alert, glost kiln placer II-XII nml as tested, normal exam, no motor/sensory deficits, oriented x 3 Mental status normal mood/affect Skin intact, normal color, warm/dry Lymphatic no adenopathy Medical Decision Making LABS/Meds/Orders Pt receiving controlled substance in ED? No Results/Orders Laboratory Tests 04/29/17 1245: Cortisol Pending 04/29/17 1245: B-Natriuretic Peptide 184 H 04/29/17 1245: Sodium 137, Potassium 2.5 *L, Chloride 96 L, Carbon Dioxide 32, BUN 30 H, Creatinine 1.5 H, Estimated Creat Clear 68, Estimated GFR (MDRD) 46, Glucose 135 H, Calcium 9.6, Total Bilirubin 0.9, AST 24, ALT 18, Alkaline Phosphatase 169 H, Troponin I 0.14 H, Total Protein 7.0, Albumin 3.5, Globulin 3.5 H, Albumin/Globulin Ratio 1.0 L, Lipase 123, TSH 0.02 L, Free T4 Index 6.9, Thyroxine (T4) 7.3, T3 Uptake 38, WBC 13.3 H, RBC 4.81, Hgb 14.4, Hct 43.8, MCV 90.9, RDW 15.1, Plt Count 323, MPV 7.4, Gran % 52.5, Gran # 7.0, Lymphocytes % 39.4, Monocytes % 7.0, Eosinophils % 0.5, Basophils % 0.6, Lymphocytes # 5.2 H, Monocytes # 0.9, Eosinophils # 0.1, Basophils # 0.1, PUBS MCHC 33.0, MCH 30.0 Orders Procedure Date/time Status CHEST(2 VIEWS-NOT PORTABLE) 11/09 1337 Active BRAIN NATRIURETIC PEPTIDE 11/09 1337 Complete ELECTROCARDIOGRAM REQUEST 04/29 1302 Active URINALYSIS/COMPLETE 04/29 1302 Active TROPONIN I 04/29 130 Complete THYROID PANEL 2 (WITH TSH) 04/29 1302 Complete LIPASE 04/29 1302 Complete CORTISOL 04/29 130 Active CBC WITH AUTO DIFF 04/29 1302 Complete CHEM 12 PROFILE 04/29 1302 Complete CM/EKG CM/EKG EKG ATRIAL FIBRILLATION. 103/MIN bASELINE ARTIFACT, st SEGMENT DEPRESSION AND t-WAVE INVERSIONS IN THE LATERAL LEADS UNCHANGED FROM february 2017 ELECTROCARDIOGRAM Departure Departure Time of Disposition 142 Disposition Still a Patient Clinical Impression Primary Impression: Panhypopituitarism Secondary Impressions: Atrial fibrillation with RVR, Hypokalemia, NSTEMI (non-ST elevated myocardial infarction), Weakness Condition STABLE Referrals Chris Kong MD (PCP/Family) Additional Instructions I obtained a 12 lead EKG which was a stable ischemia from february, his troponin was elevated and potassiumwa 2. 5. i called Dr Mariaelena miller advised admission and I called Zamz[facility] Dr Kong LIGHTING ADVISER who agreed to admit. He was dmitted in as tahble condition. Dr. Del Cid Discharge Counseling Counseled pt/family regarding diagnosis, test results, medications/RX, home care, follow up needs ED Critical Care Critical Care No If Critical Care minutes are documented, the time involved in the performance of seperately reportable procedures was not counted toward critical care time documented. I directly delivered medical care to this critically ill and/or injured patient. Timely evaluation and treatment was necessary to address the significant organ system(s) dysfunction present in this patient. at 1422
--- OUTSIDE RECORDS SUMMARY | 2017-04-29 13:08 | External Medical Summary Rpt | CCD ---
Author Author , DOMINGA Organization DOMINGA Address Unknown Phone [email or web address] Purpose Continuity of Care Document - 11-30-2016 through 2016 Results Labs Lab Lab Date Result Refere Interp Status Commen Order Detail nces retati t Range on CBC w auto diff (04-19-2017 05:00) Blood 04-19-2 = 12.2 4.8-10. complet leukocy 017 K/MM3 8 ed presley 05:00 count (number /volume ) Automat 2 = 14.6 11.5-17 complet ed 017 % .5 ed erythro 05:00 cyte distrib ution width Red = 4.01 4.6-6.2 complet blood 017 M/mm3 ed cell 05:00 count Blood 2 = 242 142-424 complet platele 017 K/mm3 ed t count 05:00 Automat 2 = 7.8 7.4-10. complet ed 017 fl 4 ed blood 05:00 platele t mean volume arianne Pondera % = 4.7 % 1.7-9.3 complet 017 ed 05:00 Absolut 2 = 0.6 0.1-1.0 complet e 017 K/mm3 ed monocyt 05:00 e count Automat 2 = 92.3 82.2-97 complet ed 017 fl .8 ed erythro 05:00 cyte mean corpusc ular v Automat 04-19-2 = 32.8 31.8-35 complet ed 017 g/dl .4 ed erythro 05:00 cyte mean corpusc ular h Mean 2 = 30.2 27-31.2 complet corpusc 017 pg ed ular 05:00 hemoglo bin (MCH) determ Lymphoc 04-19-2 = 25.6 10-50 complet yte 017 % ed count, 05:00 blood, automat ed Absolut 2 = 3.1 0.7-4.5 complet e 017 K/mm3 ed lymphoc 05:00 yte count Blood = 12.1 14.1-18 complet hemoglo 017 g/dL .0 ed bin 05:00 measure ment (mass/v olum Blood = 37.0 42.0-52 complet hematoc 017 % .0 ed rit 05:00 (volume fractio n) Granulo = 69.4 37.0-80 complet cyte 017 % .0 ed percent 05:00 age Blood = 8.5 1.3-8.0 complet granulo 017 K/mm3 ed cytes 05:00 automat ed count (numb Automat = 0.2 % 0.1-12. complet ed 017 0 ed blood 05:00 eosinop hils/10 0 leukocy t Automat = 0.0 0.0-0.4 complet ed 017 K/mm3 ed blood 05:00 eosinop hil count Baso % = 0.2 % 0.1-2.0 complet 017 ed 05:00 Automat = 0.0 0-0.2 complet ed 017 K/MM3 ed blood 05:00 basophi l count (count/ vo Basic metabolic panel (04-19-2017 05:00) Serum = 138 136-145 complet sodium 017 mmoL/L ed measure 05:00 ment Serum = 3.5 3.5-5.1 complet potassi 017 mmoL/L ed um 05:00 measure ment Serum = 143 74-106 complet or 017 mg/dL ed plasma 05:00 glucose measure ment (mas Estimat = 54 >60 complet ed 017 ML/MIN ed glomeru 05:00 lar filtrat ion rate (GF Comment: REFERENCE RANGE: >60 ML/MIN/1.73 SQUARE METERS Comment: If this patient is -[place], then multiply the Comment: result by 1.210. Estimat = 76 50-200 complet ion of 017 ML/MIN ed creatin 05:00 ine renal clearan ce Serum = 1.3 0.70-1. complet or 017 mg/dL 30 ed plasma 05:00 creatin ine measure ment ( Carbon = 30 21.0-32 complet dioxide 017 mmoL/L .0 ed 05:00 measure ment Serum = 99 98-107 complet or 017 mmoL/L ed plasma 05:00 chlorid e measure ment (mo Serum = 8.7 8.5-10. complet or 017 mg/dL 1 ed plasma 05:00 calcium measure ment (mas Serum = 24 7-18 complet or 017 mg/dL ed plasma 05:00 urea nitroge n measure men Blood lactic acid measurement (moles/vol (04-18-2017 14:10) Comment: COMMENTS TO CONE RUNNER: PLEASE RE RUN AT 1400 AND REPORT Comment: TO DR ZAZUETA Blood = 2.0 0.4-2.0 complet lactic 017 mmol/L ed acid 14:10 measure ment (moles/ vol Urinalysis with microscopy (04-18-2017 09:25) Urine 0.2 0.2 NEG complet urobili 017 L ed nogen 09:25 E.U./dL detecti on by test str [place] OCC OCC OCC complet s 017 L ed epithel 09:25 #/hpf ial cells detecti on in u Urine = 1.010 1.005-1 complet specifi 017 .030 ed c 09:25 gravity measure ment Erythro NONE 0 complet cytes 017 NONE L ed detecti 09:25 rbc/hpf on in urine sedimen t Urine = NEG complet protein 017 NEGATIV ed 09:25 E mg/dL measure ment by automat ed t Urine = 7.5 5.0-8.5 complet pH 017 ed 09:25 Urine NEGATIV NEG complet nitrite 017 E ed 09:25 NEGATIV detecti E L on by test strip Mucus NEGATIV NEG complet detecti 017 E ed on in 09:25 NEGATIV urine E L sedimen t by lig Urine NEGATIV NEG complet ketones 017 E ed 09:25 NEGATIV detecti E L on by mg/dL automat ed presley Glucose = NEG complet ur 017 NEGATIV ed test 09:25 E strip Urine YELLOW YELLOW complet color 017 YELLOW ed 09:25 L Urine NEGATIV NEG complet blood 017 E ed detecti 09:25 NEGATIV on E L Urine NEGATIV NEG complet total 017 E ed bilirub 09:25 NEGATIV in E L detecti on by test Bacteri NONE O complet a 017 NONE L ed detecti 09:25 on in urine sedimen t by Urine CLEAR CLEAR complet appeara 017 CLEAR L ed nce 09:25 determi nation Urine = NONE O complet leukocy 017 wbc/hpf ed presley 09:25 count (number /volume ) Urinalysis dipstick W Reflex Microscopic panel in Urine (04-18-2017 09:25) Bacteri NONE O complet a 017 ed [Presen 09:25 ce] in Urine sedimen t by Light microsc opy Erythro NONE 0 complet cytes 017 ed [Presen 09:25 ce] in Urine sedimen t by Light microsc opy Epithel 04-18- OCC OCC complet ial 017 ed cells.s [...] 09:25 ce] in Urine by Test strip Blood lactic acid measurement (moles/vol (04-18-2017 08:46) Blood = 1.6 0.4-2.0 complet lactic 017 mmol/L ed acid 08:46 measure ment (moles/ vol CBC w auto diff (04-18-2017 08:46) Blood = 11.5 4.8-10. complet leukocy 017 K/MM3 8 ed presley 08:46 count (number /volume ) Automat = 14.8 11.5-17 complet ed 017 % .5 ed erythro 08:46 cyte distrib ution width Red = 4.25 4.6-6.2 complet blood 017 M/mm3 ed cell 08:46 count Blood = 239 142-424 complet platele 017 K/mm3 ed t count 08:46 Automat = 7.9 7.4-10. complet ed 017 fl 4 ed blood 08:46 platele t mean volume arianne Pondera % = 6.4 % 1.7-9.3 complet 017 ed 08:46 Absolut = 0.7 0.1-1.0 complet e 017 K/mm3 ed monocyt 08:46 e count Automat = 91.1 82.2-97 complet ed 017 fl .8 ed erythro 08:46 cyte mean corpusc ular v Automat = 33.3 31.8-35 complet ed 017 g/dl .4 ed erythro 08:46 cyte mean corpusc ular h Mean = 30.3 27-31.2 complet corpusc 017 pg ed ular 08:46 hemoglo bin (MCH) determ Lymphoc = 28.0 10-50 complet yte 017 % ed count, 08:46 blood, automat ed Absolut = 3.2 0.7-4.5 complet e 017 K/mm3 ed lymphoc 08:46 yte count Blood = 12.9 14.1-18 complet hemoglo 017 g/dL .0 ed bin 08:46 measure ment (mass/v olum Blood = 38.7 42.0-52 complet hematoc 017 % .0 ed rit 08:46 (volume fractio n) Granulo = 64.6 37.0-80 complet cyte 017 % .0 ed percent 08:46 age Blood = 7.4 1.3-8.0 complet granulo 017 K/mm3 ed cytes 08:46 automat ed count (numb Automat = 0.6 % 0.1-12. complet ed 017 0 ed blood 08:46 eosinop hils/10 0 leukocy t Automat = 0.1 0.0-0.4 complet ed 017 K/mm3 ed blood 08:46 eosinop hil count Baso % = 0.3 % 0.1-2.0 complet 017 ed 08:46 Automat = 0.0 0-0.2 complet ed 017 K/MM3 ed blood 08:46 basophi l count (count/ vo CRP (04-18-2017 08:46) CRP = 9.2 0.0-0.9 complet 017 MG/DL ed 08:46 Erythrocyte sedimentation rate by chela (04-18-2017 08:46) Erythro = 57 0-20 complet cyte 017 mm/hr ed sedimen 08:46 tation rate by chela Comprehensive metabolic panel (04-18-2017 08:46) Protein = 6.8 6.4-8.2 complet total 017 gm/dL ed ser/beronica 08:46 s ALT = 29 12-78 complet (SGPT) 017 U/L ed ser/beronica 08:46 s Serum = 35 15-37 complet or 017 U/L ed plasma 08:46 asparta te aminotr ansfera Serum = 140 136-145 complet sodium 017 mmoL/L ed measure 08:46 ment Serum = 2.3 3.5-5.1 complet potassi 017 mmoL/L ed um 08:46 measure ment Comment: CRITICAL RESULTS Comment: RESULTS CALLED TO: SHYHillaryCLA 04/18/17 0922 Beata Paredes Serum = 108 74-106 complet or 017 mg/dL ed plasma 08:46 glucose measure ment (mas Serum 2 = 3.4 1.3-3.2 complet globuli 017 gm/dL ed n 08:46 measure ment (mass/v olume) Estimat = 59 >60 complet ed 017 ML/MIN ed glomeru 08:46 lar filtrat ion rate (GF Comment: REFERENCE RANGE: >60 ML/MIN/1.73 SQUARE METERS Comment: If this patient is -[place], then multiply the Comment: result by 1.210. Estimat = 87 50-200 complet ion of 017 ML/MIN ed creatin 08:46 ine renal clearan ce Serum = 1.2 0.70-1. complet or 017 mg/dL 30 ed plasma 08:46 creatin ine measure ment ( Carbon = 34 21.0-32 complet dioxide 017 mmoL/L .0 ed 08:46 measure ment Serum = 99 98-107 complet or 017 mmoL/L ed plasma 08:46 chlorid e measure ment (mo Serum = 9.0 8.5-10. complet or 017 mg/dL 1 ed plasma 08:46 calcium measure ment (mas Serum = 28 7-18 complet or 017 mg/dL ed plasma 08:46 urea nitroge n measure men Serum = 0.5 0.2-1.0 complet or 017 mg/dL ed plasma 08:46 total bilirub in measure m Serum = 147 46-116 complet or 017 U/L ed plasma 08:46 alkalin e phospha tase arianne Serum = 3.4 3.4-5.0 complet or 017 gm/dL ed plasma 08:46 albumin measure ment (mas Serum 2 = 1.0 1.1-1.8 complet or 017 ed plasma 08:46 albumin /globul in mass ra Urinalysis dipstick W Reflex Microscopic panel in [...]
--- OUTSIDE RECORDS SUMMARY | 2017-04-29 13:08 | External Medical Summary Rpt | CCD ---
Author Author , DOMINGA Organization DOMINGA Address Unknown Phone [email or web address] Purpose Continuity of Care Document - 11-30-2016 [...] blood 05:00 platele t mean volume arianne Forrest % = 4.7 % 1.7-9.3 complet 017 [...] SQUARE METERS Comment: If this patient is -Slov[place], then multiply the Comment: result by 1.210. [...] measurement (moles/vol (04-18-2017 14:10) Comment: COMMENTS TO STEWARD/STEWARDESS THIRD CLASS: PLEASE RE RUN AT 1400 AND REPORT [...] blood 08:46 platele t mean volume arianne Forrest % = 6.4 % 1.7-9.3 complet 017 [...] SQUARE METERS Comment: If this patient is -Slov[place], then multiply the Comment: result by 1.210. [...]
[2017-04-29 13:09] LABS: LYMPH # 5.2 K/mm3 (0.7-4.5); LYMPH % 39.4 % (10-50)
--- OUTSIDE RECORDS SUMMARY | 2017-04-29 13:09 | External Medical Summary Rpt | CCD ---
Author Author , DOMINGA ORR Address Unknown Phone [email or web address] Immunization Name Date Rout CVX Reac Dose Comm Prov Is Faci e tion ent ider Refu lity Give sed n PPV2 08-0 33 0.5 Hist [facility] No [facility] 3 1-20 mL oric 1 1 15 al Info rmat ion - Sour ce Unsp ecif ied
--- OUTSIDE RECORDS SUMMARY | 2017-04-29 13:09 | External Medical Summary Rpt | CCD ---
Author Author , DOMINGA ORR Address Unknown Phone [email or web address] Immunization Name Date Rout CVX Reac Dose Comm Prov Is Faci e tion ent ider Refu lity Give sed n PPV2 08-0 33 0.5 Hist [facility] No [facility] 3 1-20 mL oric 1 1 15 al Info rmat ion - Sour ce Unsp ecif ied
--- OUTSIDE RECORDS SUMMARY | 2017-04-29 13:10 | External Medical Summary Rpt ---
Author Author [employer], [employer] Organization [employer] Address Unknown Phone Unavailable Results CBC W Auto Differential panel in Blood Observa Value Referen Units Interpr Notes Date tion ce etation Range Basophils 0 - 0.2 K/MM3 Normal No Apr 19 informati 2016 5:00 [#/volume on in AM ] in source Blood by data Automated count Basophils 0.1 - 2.0 % Normal No Apr 19 / informati 2016 5:00 leukocyte on in AM s in source Blood by data Automated count Eosinophi 0.0 - 0.4 K/mm3 Normal No Apr 19 ls informati 2016 5:00 [#/volume on in AM ] in source Blood by data Automated count Eosinophi 0.1 - % Normal No Apr 19 ls/100 12.0 informati 2016 5:00 leukocyte on in AM s in source Blood by data Automated count Granulocy 1.3 - 8.0 K/mm3 High No Apr 19 presley informati 2017 5:00 [#/volume on in AM ] in source Blood by data Automated count Granulocy 37.0 - % Normal No Apr 19 presley/100 80.0 informati 2016 5:00 leukocyte on in AM s in source Blood by data Automated count Hematocri 42.0 - % Low No Apr 19 t [Volume 52.0 informati 2016 5:00 on in AM Fraction] source of Blood data Hemoglobi 14.1 - g/dL Low No Apr 19 n 18.0 informati 2016 5:00 [Mass/vol on in AM ume] in source Blood data Lymphocyt 0.7 - 4.5 K/mm3 Normal No Apr 19 es informati 2016 5:00 [#/volume on in AM ] in source Unspecifi data ed specimen by Automated count Lymphocyt 10 - 50 % Normal No Apr 19 es informati 2016 5:00 [#/volume on in AM ] in source Unspecifi data ed specimen by Automated count Erythrocy 27 - 31.2 pg Normal No Apr 19 te mean informati 2016 5:00 corpuscul on in AM ar source hemoglobi data n [Entitic mass] Erythrocy 31.8 - g/dl Normal No Apr 19 te mean 35.4 informati 2016 5:00 corpuscul on in AM ar source hemoglobi data n concentra tion [Mass/vol ume] by Automated count Erythrocy 82.2 - fl Normal No Apr 19 te mean 97.8 informati 2016 5:00 corpuscul on in AM ar volume source [Entitic data volume] by Automated count Monocytes 0.1 - 1.0 K/mm3 Normal No Apr 19 informati 2016 5:00 [#/volume on in AM ] in source Blood by data Automated count Monocytes 1.7 - 9.3 % Normal No Apr 19 /100 informati 2016 5:00 leukocyte on in AM s in source Blood by data Automated count Platelet 7.4 - fl Normal No Apr 19 mean 10.4 informati 2016 5:00 volume on in AM [Entitic source volume] data in Blood by Automated count Platelets 142 - 424 K/mm3 Normal No Apr 19 informati 2016 5:00 [#/volume on in AM ] in source Blood data Erythrocy 4.6 - 6.2 M/mm3 Low No Apr 19 presley informati 2016 5:00 [#/volume on in AM ] in source Amniotic data fluid Erythrocy 11.5 - % Normal No Apr 19 te 17.5 informati 2016 5:00 distribut on in AM ion width source [Entitic data volume] by Automated count Leukocyte 4.8 - K/MM3 High No Apr 19 s 10.8 informati 2016 5:00 [#/volume on in AM ] in source Blood data Basic metabolic panel in Blood Observa Value Referen Units Interpr Notes Date tion ce etation Range Urea 7 - 18 mg/dL High No Apr 19 nitrogen informati 2016 5:00 [Mass/vol on in AM ume] in source Serum or data Plasma Calcium 8.5 - mg/dL Normal No Apr 19 [Mass/vol 10.1 informati 2016 5:00 ume] in on in AM Serum or source Plasma data Chloride 98 - 107 mmoL/L Normal No Apr 19 [Moles/vo informati 2016 5:00 lume] in on in AM Serum or source Plasma data Carbon 21.0 - mmoL/L Normal No Apr 19 dioxide, 32.0 informati 2016 5:00 total on in AM [Moles/vo source lume] in data Serum or Plasma Creatinin 0.70 - mg/dL Normal No Apr 19 e 1.30 informati 2016 5:00 [Mass/vol on in AM ume] in source Serum or data Plasma Creatinin 50 - 200 ML/MIN Normal No Apr 19 e renal informati 2016 5:00 clearance on in AM source predicted data by Cockcroft -Gault formula Estimated >60 ML/MIN No REFERENCE Apr 19 informati RANGE: 2017 5:00 glomerula on in >60 AM r source ML/MIN/1. filtratio data 73 SQUARE n rate METERSIf (GF this patient is -A merican, then multiply theresult by 1.210. Glucose 74 - 106 mg/dL High No Apr 19 [Mass/vol informati 2016 5:00 ume] in on in AM Serum or source Plasma data Potassium 3.5 - 5.1 mmoL/L Normal No Apr 19 informati 2016 5:00 [Moles/vo on in AM lume] in source Serum or data Plasma Sodium 136 - 145 mmoL/L Normal No Apr 19 [Moles/vo informati 2016 5:00 lume] in on in AM Serum or source Plasma data Lactate [Moles/volume] in Blood Observa Value Referen Units Interpr Notes Date tion ce etation Range COMMENTS TO [employer]: PLEASE RE RUN AT [address] ZAZUETA Lactate 0.4 - 2.0 mmol/L Normal No Apr 18 [Moles/vo informati 2016 2:10 lume] in on in PM Blood source data Urinalysis dipstick W Reflex Microscopic panel [...] data data data sedimen t by Light micros opy Bilirub NEGATIV NEG No No No [...] No No Apr 18 [Mass/vol informati informati 2017 9:25 ume] in on in on in [...] source Urine data data by Test strip CRP Observa Value Referen Units Interpr Notes Date tion ce etation Range CRP 0.0 - 0.9 MG/DL High No Apr 18 informati 2017 8:46 on in AM source data Erythrocyte sedimentation rate by Westergren method Observa Value Referen Units Interpr Notes Date tion ce etation Range Erythrocy 0 - 20 mm/hr High No Apr 18 te informati 2016 8:46 sedimenta on in AM tion rate source by data Westergre n method Comprehensive metabolic 2000 panel in Serum or Plasma Observa Value Referen Units Interpr Notes Date tion ce etation Range Albumin/G 1.1 - 1.8 No Low No Apr 18 lobulin informati informati 2017 8:46 [Mass on in on in AM ratio] in source source Serum or data data Plasma Albumin 3.4 - 5.0 gm/dL Normal No Apr 18 [Mass/vol informati 2017 8:46 ume] in on in AM Serum or source Plasma data Alkaline 46 - 116 U/L High No Apr 18 phosphata informati 2017 8:46 se on in AM [Enzymati source c data activity/ volume] in Serum or Plasma Bilirubin 0.2 - 1.0 mg/dL Normal No Apr 18 .total informati 2017 8:46 [Mass/vol on in AM ume] in source Serum or data Plasma Urea 7 - 18 mg/dL High No Apr 18 nitrogen informati 2017 8:46 [Mass/vol on in AM ume] in source Serum or data Plasma Calcium 8.5 - mg/dL Normal No Apr 18 [Mass/vol 10.1 informati 2016 8:46 ume] in on in AM Serum or source Plasma data Chloride 98 - 107 mmoL/L Normal No Apr 18 [Moles/vo informati 2017 8:46 lume] in on in AM Serum [...] Serum or Plasma RESU LTS CALLED TO: CLA 04/18/17 0922 Beata Paredes Sodium 136 - [...] - 2.0 % Normal No Apr 18 / informati 2016 8:46 leukocyte on in AM [...] No Apr 18 t [Volume 52.0 informati 2016 8:46 on in AM Fraction] source of [...] % Normal No Apr 18 /100 informati 2016 8:46 leukocyte on in AM [...] M/mm3 Low No Apr 18 presley informati 2016 8:46 [...] No No Mar 25 s informati informati 2017 7:02 [#/volume on in on in AM [...] 0.2 K/MM3 Normal No Mar 25 informati 2017 6:45 [...] - 9.3 % Normal No Mar 25 informati 2016 6:45 leukocyte on in AM s in source Blood by data Automated count Platelet 7.4 - fl Normal No Mar 5 mean 10.4 informati 2016 6:45 volume on in AM [Entitic source [...] Leukocyte 4.8 - K/MM3 High No Mar 5 s 10.8 informati 2016 6:45 [#/volume on [...] - 50 % Low No Mar 25 inform2016 tion in 6:45 AM source data Monocytes 2 - 9 % Normal No Mar 25 informati 2016 6:45 leukocyte on in AM [...] No Mar 25 Counted informati informati informati 2016 6:45 Total [...] U/L Normal No Mar 5 kinase informati 2017 6:45 [Enzymati on in AM c source activity/ data volume] in Serum or Plasma Troponin 0.00 - ng/mL Normal No Mar 5 I.cardiac 0.06 informati 2017 6:45 on in AM [Mass/vol source ume] in data Serum or Plasma Comprehensive metabolic 2000 panel in Serum or Plasma Observa Value Referen Units Interpr Notes Date tion ce etation Range Albumin/G 1.1 - 1.8 No Low No Mar 5 lobulin informati informati 2017 6:45 [Mass on in on in AM ratio] in source source Serum or data data Plasma Albumin 3.4 - 5.0 gm/dL Low No Mar 5 [Mass/vol informati 2017 6:45 ume] in on in AM Serum or source Plasma data Alkaline 46 - 116 U/L High No Mar 25 phosphata informati 2017 6:45 se on in AM [Enzymati source c data activity/ volume] in Serum or Plasma Bilirubin 0.2 - 1.0 mg/dL Normal No Mar 5 .total informati 2017 6:45 [Mass/vol on in AM ume] in source Serum or data Plasma Urea 7 - 18 mg/dL High No Mar 25 nitrogen informati 2017 6:45 [Mass/vol on in AM ume] in source Serum or data Plasma Calcium 8.5 - mg/dL Normal No Mar 5 [Mass/vol 10.1 informati 2017 6:45 ume] in on in AM Serum or source Plasma data Chloride 98 - 107 mmoL/L Low No Mar 5 [Moles/vo informati 2017 6:45 lume] in on in AM Serum or source Plasma data Carbon 21.0 - mmoL/L Normal No Mar 5 dioxide, 32.0 informati 2017 6:45 total on in AM [Moles/vo source lume] in data Serum or Plasma Creatinin 0.70 - mg/dL High No Oct 5 e 1.30 informati 2017 6:45 [Mass/vol on in AM ume] in source Serum or data Plasma Creatinin 50 - 200 ML/MIN Normal No Mar 5 e renal informati 2016 6:45 clearance on in AM source predicted data by Cockcroft -Gault formula Estimated >60 ML/MIN No REFERENCE Mar 25 informati RANGE: 2016 6:45 glomerula on in >60 AM r source ML/MIN/1. filtratio data 73 SQUARE n rate METERSIf (GF this patient is -A merican, then multiply theresult by 1.210. Globulin 1.3 - 3.2 gm/dL Normal No Mar 25 [Mass/vol informati 2016 6:45 ume] in on in AM Serum source data Glucose 74 - 106 mg/dL High No Mar 5 [Mass/vol informati 2016 6:45 ume] in on in AM Serum or source Plasma data Potassium 3.5 - 5.1 mmoL/L Low No Mar 25 inform2016 6:45 [Moles/vo on in AM lume] in source Serum or data Plasma Sodium 136 - 145 mmoL/L Normal No Mar 25 [Moles/vo informati 2016 6:45 lume] in on in AM Serum or source Plasma data Aspartate 15 - 37 U/L Normal No Mar 25 inform2016 6:45 aminotran on in AM sferase source [Enzymati data c activity/ volume] in Serum or Plasma Alanine 12 - 78 U/L Low No Mar 25 aminotran informati 2016 6:45 sferase on in [...] K/mm3 Normal No Feb 11 ls informati 2017 4:10 [#/volume on in PM ] in source Blood by data Automated count Eosinophi 0.1 - % Normal No Feb 11 ls/100 12.0 informati 2017 4:10 leukocyte on in PM s in source Blood by data Automated count Granulocy 1.3 - 8.0 K/mm3 High No Feb 11 presley informati 2016 4:10 [#/volume on in PM ] in source Blood by data Automated count Granulocy 37.0 - % Normal No Feb 11 presley/100 80.0 informati 2017 4:10 leukocyte on in PM s in source Blood by data Automated count Hematocri 42.0 - % Low No Feb 11 t [Volume 52.0 informati 2017 4:10 on in PM Fraction] source of [...] 1.0 K/mm3 Normal No Feb 11 informati 2016 4:10 [#/volume on in PM ] in source Blood by data Automated count Monocytes 1.7 - 9.3 % Normal No Feb 11 /100 informati 2016 4:10 leukocyte on in PM s in source Blood by data Automated count Platelet 7.4 - fl Normal No Feb 11 mean 10.4 informati 2016 4:10 volume on in PM [Entitic source volume] data in Blood by Automated count Platelets 142 - 424 K/mm3 Normal No Feb 11 inform2016 4:10 [#/volume on in PM ] in source Blood data Erythrocy 4.6 - 6.2 M/mm3 Low No Feb 11 presley informati 2016 4:10 [...] or Plasma RESU LTS CALLED TO: ASIM ReynoldsHillary 12/28/16 0914 O'Steffanie Candelaria Sodium 136 - 145 mmoL/L Normal No Dec 28 [Moles/vo informati 2017 8:52 lume] in on in AM Serum or source Plasma data CBC W Auto Differential panel in Blood Observa Value Referen Units Interpr Notes Date tion ce etation Range Basophils 0 - 0.2 K/MM3 Normal No Nov 30 informati 2016 1:59 [#/volume on in PM ] in source Blood by data Automated count Basophils 0.1 - 2.0 % Normal No Nov 30 informati 2017 1:59 leukocyte on in PM s in source Blood by data Automated count Eosinophi 0.0 - 0.4 K/mm3 Normal No Nov 30 ls informati 2016 1:59 [#/volume on in PM ] in source Blood by data Automated count Eosinophi 0.1 - % Normal No Nov 30 ls/100 12.0 informati 2017 1:59 leukocyte on in PM s in source Blood by data Automated count Granulocy 1.3 - 8.0 K/mm3 Normal No Nov 30 presley informati 2017 1:59 [#/volume on in PM ] in source Blood by data Automated count Granulocy 37.0 - % Normal No Nov 30 presley/100 80.0 informati 2016 1:59 leukocyte on in PM s in source Blood by data Automated count Hematocri 42.0 - % Low No Nov 30 t [Volume 52.0 informati 2016 1:59 on in PM Fraction] source of [...] % Normal No Nov 30 es informati 2016 1:59 [#/volume on in PM ] in source Unspecifi data ed specimen by Automated count Erythrocy 27 - 31.2 pg High No Jeff 12 te mean informati 2017 1:59 corpuscul on in PM ar source hemoglobi data n [Entitic mass] Erythrocy 31.8 - g/dl Normal No Nov 12 te mean 35.4 informati 2017 1:59 corpuscul on in PM ar source hemoglobi data n concentra tion [Mass/vol ume] by Automated count Erythrocy 82.2 - fl Normal No Nov 12 te mean 97.8 informati 2017 1:59 corpuscul on in PM ar volume source [Entitic data volume] by Automated count Monocytes 0.1 - 1.0 K/mm3 Normal No Nov 12 informati 2017 1:59 [#/volume on in PM ] in source Blood by data Automated count Monocytes 1.7 - 9.3 % Normal No Nov 12 / informati 2017 1:59 leukocyte on in PM s in source Blood by data Automated count Platelet 7.4 - fl Normal No Nov 12 mean 10.4 informati 2017 1:59 volume on [...] Normal No Nov 12 s 10.8 informati 2016 1:59 [#/volume on in PM ] in source Blood data
--- OUTSIDE RECORDS SUMMARY | 2017-04-29 13:10 | External Medical Summary Rpt ---
[...] Date tion ce etation Range COMMENTS TO [facility]: PLEASE RE RUN AT 1400 AND REPORT [...]
[2017-04-29 13:19] LABS: HEMOGLOBIN 14.4 g/dL (14.1-18.0)
[2017-04-29 13:29] LABS: FREE THYROXIN INDEX 6.9 ug/dl (5.93-13.13)
--- NOTE | 2017-04-29 15:00 | RADIOLOGY REPORT PS360 ---
CHEST-PORTABLE HISTORY: Weakness ORDERING PHYSICIAN: Abhilash Del Cid MD PATIENT AGE: 76 years COMPARISON: 03/25/2017 FINDINGS: The cardiomediastinal silhouette and pulmonary vascularity are within normal limits. No lobar consolidation or collapse is evident. There is a faint 12 mm opacity in the left mid and lower lung zone overlying the fourth rib anteriorly and may be related to summation artifact. Upright PA and lateral chest may confirm if possible. 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 The trachea slightly deviated towards the left which could be due to right-sided thyroid enlargement or thyroid nodule. IMPRESSION: 1. Mild tracheal deviation toward the left which may related to thyroid nodule or enlargement. 2. Faint opacity in the left mid to lower lung zone. Cannot exclude a small area of infiltrate.
--- NOTE | 2017-04-29 15:52 | HISTORY AND PHYSICAL REPORT ---
Demographics: Admit date: 04/29/17 Chief complaint: weakness, knee pain PRIMARY DIAGNOSIS: hypokalemia, elevated troponin, weakness Allergies: Coded Allergies: Sulfa (Sulfonamide Antibiotics) (04/29/17) History of present illness: History of present illness: 76-year-old white male with multiple medical problems including pituitary insufficiency, hypothyroidism, lymphedema and chronic depression issues presented to the ED via EMS for bilateral knee pain and weakness that has increased over the last few days. Patient reports he has been unable to ambulate since yesterday due to weakness and pain. He reports loss of appetite and decreased oral intake over the last few days, as well. He denies any cough, congestion or ENT symptoms. No fevers or other constitutional symptoms. In the ED, he was found to be hypokalemic with potassium 2.5. Oral replacement was given. EKG showed ST depression in lateral leads which appears to be at his baseline when compared with previous. Troponin was elevated at 0.14. He denies any chest pain, shortness of breath or palpitations. CXR showed a faint opacity in left mid-lower lobe; however no definite pathology. He has mild leukocytosis with WBC at 13 and appears dehydrated with BUN/Creat 30/1.5. He is orthostatic. Patient is interested in ECF placement for rehabilitation and therapy; however was unable to do so due to financial constraints after his discharge a few weeks ago. Patient is admitted to acute care for serial enzymes, cardiology consult and further evaluation. Past medical history: Family HX Diabetes No CAD Yes Hypertension Yes Hyperlipidemia No Cancer No TB No Immunization HX Ped.Immunizations UTD Yes DT/Tetanus Unknown Flu [id number] Pneumonia Received In Past General CAD? Yes Angina: No HI: No Hypertension? Yes Hyperlipidemia? Yes CHF? No DVT? No PE? No COPD? No Asthma? No Anemia? Yes GERD? No Gastric ulcers? No GI Bleed? No Hernia? No Thyroid Problems? Yes Hypothyroidism? Yes CVA? Yes Seizures? No Diabetes? No Insulin Dependent: No Insulin Pump: No Home FSBS? No Renal Insuffiency? No UTI? No Stones? No BPH? No GB Disease: No Nephritic Syndrome? No Asplenia? No Hepatitis? No Sickle Cell Disease? No Arthritis? No Migraines? No Cataracts? No Glaucoma? No MRSA? No HIV? No TB? No Anxiety? No Depression? No Cancer? No More? 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 Current home meds: Active Scripts Carvedilol (Carvedilol 3.125MG) 6.25 MG PO BID #60 TAB Ref 2 Prov: 04/10/15 ACETAMINOPHEN WITH CODEINE (Tylenol With Codeine #3 Tablet) 1-2 TAB PO Q6HP PRN BREAKTHROUGH MOD TO SEV PAIN #20 TAB Prov: 04/19/17 Reported Medications LEVOTHYROXINE SOD (Synthroid) 0.1 MG PO DAILY ASPIRIN (Aspirin) 81 MG PO DAILY CARBIDOPA 25/LEVODOPA 100 (Carbidopa-Levodopa 25-100 Tab) 1 TABLET PO TID Acetaminophen (Tylenol) 650 MG PO [id number] Atorvastatin Calcium 10 MG PO QHS Prednisone (Prednisone 20MG) 20 MG PO DAILY #90 TAB Mupirocin 2% (Mupirocin 2% Oint) 1 TRIP TP TID Metolazone (Metolazone 2.5MG) 2.5 MG PO DAILY Meclizine Hcl (Meclizine Hydrochloride) 25 MG PO TIDP PRN DIZZINESS POTASSIUM CHL (Potassium Chloride) 20 MEQ PO BID Furosemide 80 MG PO DAILY Social Hx: Smoking HX Tobacco No Type N/A Are you/the child exposed to second-hand smoke: No Alcohol Alcohol: No Hx of Drug Use Drug Use? No Patient's support system is poor Review of systems: Constitutional weakness. No: chills, diaphoresis, fever. Eyes No: no symptoms reported. Ears, Nose, Mouth, Throat No no symptoms reported Respiratory No: no symptoms reported. Cardiovascular see HPI, other (dizziness) Gastrointestinal/Abdominal No diarrhea, nausea, poor appetite, poor fluid intake, No rectal bleeding, No vomiting Genitourinary No: no symptoms reported. Musculoskeletal No: no symptoms reported. Skin No: no symptoms reported. Neurological No: no symptoms reported. Psychiatric No: no symptoms reported. Exam: Lab data for last 24 hours: Laboratory Tests 04/29/17 1245: B-Natriuretic Peptide 184 H 04/29/17 1245: Sodium 137, Potassium 2.5 *L, Chloride 96 L, Carbon Dioxide 32, BUN 30 H, Creatinine 1.5 H, Estimated Creat Clear 68, Estimated GFR (MDRD) 46, Glucose 135 H, Calcium 9.6, Total Bilirubin 0.9, AST 24, ALT 18, Alkaline Phosphatase 169 H, Troponin I 0.14 H, Total Protein 7.0, Albumin 3.5, Globulin 3.5 H, Albumin/Globulin Ratio 1.0 L, Lipase 123, TSH 0.02 L, Free T4 Index 6.9, Thyroxine (T4) 7.3, T3 Uptake 38, WBC 13.3 H, RBC 4.81, Hgb 14.4, Hct 43.8, MCV 90.9, RDW 15.1, Plt Count 323, MPV 7.4, Gran % 52.5, Gran # 7.0, Lymphocytes % 39.4, Monocytes % 7.0, Eosinophils % 0.5, Basophils % 0.6, Lymphocytes # 5.2 H, Monocytes # 0.9, Eosinophils # 0.1, Basophils # 0.1, PUBS MCHC 33.0, MCH 30.0 Admission vital signs: 1ST Vital Signs Result Date Time Pulse Ox 99 04/29 1244 B/P 109/79 04/29 1244 Temp 98.3 04/29 1244 Pulse 93 04/29 1244 Resp 18 04/29 1244 Exam General appearance: alert, awake, no acute distress Eyes: anicteric ENT: dry mucous membranes Neck: non-tender, no carotid bruit, no JVD Cardiovascular: regular rate & rhythm, no murmur, peripheral edema Respiratory: clear to auscultation, chest non-tender, good air movement, normal breath sounds ABD: non-distended, normal bowel sounds, no rebound, soft, no tenderness, no guarding Genitourinary: no dysuria, no hematuria Extremities: moves all Musculoskeletal: sensation intact Skin: dry, intact, pale Neuro: intact, no deficit, normal mood/affect, oriented, speech clear Plan: Problem List 1. Hypokalemia Assessment/Plan Oral replacement given. Will recheck in the am. 2. Abnormal EKG Assessment/Plan Appears to be chronic. 3. Elevated troponin Assessment/Plan Serial enzymes ordered. Cardiology consulted. 4. Dehydration Assessment/Plan Gentle rehydration with IVF's 5. Bilateral knee pain Assessment/Plan Needs PT for deconditioning and pain. 6. Dizziness Assessment/Plan Orthostatic in nature. Rehydrate as listed above. Plan: See above. at 1604
[2017-04-29 16:29] VITALS: BP 100/46
[2017-04-29 16:51] VITALS: BP 115/58
[2017-04-29 19:14] VITALS: BP 127/68
[2017-04-29 20:03] VITALS: BP 127/68
[2017-04-29 23:52] VITALS: BP 112/68
[2017-04-30] VITALS (18 sets, daily range): BP systolic 109–147; BP diastolic 37–79
[2017-04-30 07:20] LABS: LYMPH # 3.4 K/mm3 (0.7-4.5); LYMPH % 32.2 % (10-50)
--- NOTE | 2017-04-30 07:27 | PHARMACY CLINIC NOTE ---
Patient Demographics Patient Demographics Admission date: 04/29/17 Date: 04/30/17 Time: 0726 Allergies Coded Allergies: Sulfa (Sulfonamide Antibiotics) (04/29/17) HEIGHT- FT: 6 IN: 0.00 K.462 VTE General Information Labs: Laboratory Tests 04/30 1245 Hematology Hgb (14.1 - 18.0 g/dL) 15.0 14.4 Hct (42.0 - 52.0 %) 44.9 43.8 Plt Count (142 - 424 K/mm3) 253 323 Disclaimer The following section includes nursing documentation that has been pulled in for pharmacy review. Patient's VTE score: 2 Patient's VTE Risk: VERY LOW RISK Clinical trial participant? No VTE prophylaxis NQF [id number] VTE prophylaxis ordered? Yes Type of prophylaxis/treatment: Lovenox at 0726
--- NOTE | 2017-04-30 07:57 | CONSULT NOTE ---
Standard Demographics Patient Demo Date of Consultation: 04/30/17 Referring Provider: Chris Kong MD Reason for Consultation: NSTEMI PRIMARY DIAGNOSIS: hypokalemia, elevated troponin, weakness Problem list Problem list: 1. History of Pituitary Tumor A. S/p surgery and radiation therapy B. Follow by Radiation Oncology Manager in [facility] c. hypothyroidism on supplement 2. HTN, treated since 1977 A. Echo,12/2014, EF >55% without significant valve abnormality. B. Echo, 09/2016, Biatrial enlargement, normal left ventricular size, visually estimated ejection fraction 50-55% with no obvious regional wall motion abnormality. Mildly enlarged right ventricle with normal contractility. Mild mitral and tricuspid regurgitation. Trivial pericardial effusion noted. 3. Tobacco use, started age 19 and stopped 2011. Averaged 1 ppd 4. Confusion with mental status changes A. Hospitalization at , 2014. Viral enchephalitis with prolonged rehab at [facility] 5. Hyperlipidemia 6. Lung nodule, right middle lobe, [address] evidence of primary malignancy, 12/2014. 7. LE edema A. recent venous dopplers, 12/2014, , normal. 8. chronic Atrial fibrillation A. On Xarelto History of present illness: History of present illness: 76-year-old white male with multiple medical problems including pituitary insufficiency, hypothyroidism, lymphedema and chronic depression issues presented to the ED via EMS for bilateral knee pain and weakness that has increased over the last few days. Patient reports he has been unable to ambulate since yesterday due to weakness and pain. He reports loss of appetite and decreased oral intake over the last few days, as well. He denies any cough, congestion or ENT symptoms. No fevers or other constitutional symptoms. In the ED, he was found to be hypokalemic with potassium 2.5. Oral replacement was given. EKG showed ST depression in lateral leads which appears to be at his baseline when compared with previous. Troponin was elevated at 0.14. He denies any chest pain, shortness of breath or palpitations. CXR showed a faint opacity in left mid-lower lobe; however no definite pathology. He has mild leukocytosis with WBC at 13 and appears dehydrated with BUN/Creat 30/1.5. He is orthostatic. Patient is interested in ECF placement for rehabilitation and therapy; however was unable to do so due to financial constraints after his discharge a few weeks ago. Patient is admitted to acute care for serial enzymes, cardiology consult and further evaluation. The above per SHON Watts. Pt denies any recent chest pain but activity has been limited due to recent back injury 2 wks ago. Denies any fever, chills, cough or congestion. Chronic LE edema has improved with "wrap therapy." Past Medical History: General: Hypertension Yes CVA Yes Seizures No TB No COPD No Asthma No Diabetes No Insulin Dependent No Insulin Pump No Angina No MO No Hyperlipidemia Yes Urinary No Cancer No Rheumatic H.D. No Ulcers No MRSA No GB Disease No Other AFIB Past Surgical HX: Previous Surgery?Y PITUITARY TUMOR PILONIDAL CYST Allergies Coded Allergies: Sulfa (Sulfonamide Antibiotics) (04/29/17) Home medications: Active Scripts Carvedilol (Carvedilol 3.125MG) 6.25 MG PO BID #60 TAB Ref 2 Prov: 04/10/15 ACETAMINOPHEN WITH CODEINE (Tylenol With Codeine #3 Tablet) 1-2 TAB PO Q6HP PRN BREAKTHROUGH MOD TO SEV PAIN #20 TAB Prov: 04/19/17 Reported Medications LEVOTHYROXINE SOD (Synthroid) 0.1 MG PO DAILY ASPIRIN (Aspirin) 81 MG PO DAILY CARBIDOPA 25/LEVODOPA 100 (Carbidopa-Levodopa 25-100 Tab) 1 TABLET PO TID Acetaminophen (Tylenol) 650 MG PO [id number] Atorvastatin Calcium 10 MG PO QHS Prednisone (Prednisone 20MG) 20 MG PO DAILY #90 TAB Mupirocin 2% (Mupirocin 2% Oint) 1 TRIP TP TID Metolazone (Metolazone 2.5MG) 2.5 MG PO DAILY Meclizine Hcl (Meclizine Hydrochloride) 25 MG PO TIDP PRN DIZZINESS POTASSIUM CHL (Potassium Chloride) 20 MEQ PO BID Furosemide 80 MG PO DAILY Current Medications: Current Medications Fentanyl Citrate 25 MCG PRN PRN IV Fentanyl Citrate 50 MCG PRN PRN IV Flumazenil 0.2 MG PRN PRN IV Heparin Sodium (Beef Lung) 5,000 UNITS PRN PRN IV Heparin Sodium/Sodium Chloride 3,000 UNITS PRN PRN IV Lidocaine HCl 20 ML ONCE ONE IJ (DC) Midazolam HCl 1 MG PRN PRN IV Midazolam HCl 1 MG PRN PRN IV Naloxone HCl 0.4 MG [id number] PRN IV Nitroglycerin 800 MCG PRN PRN IV Verapamil HCl 5 MG PRN PRN IV Ondansetron HCl 0 .STK-MED ONE .ROUTE (DC) Pantoprazole Sodium 40 MG QHS IV Acetaminophen 500 MG Q6HP PRN PO (CKD) Ondansetron HCl 4 MG Q6HP PRN IV Ondansetron HCl 0 .STK-MED ONE .ROUTE (DC) Acetaminophen 0 .STK-MED ONE PO (DCr) Sodium Chloride 1,000 ML .Q20H IV Influenza Virus Vaccine Quadrival 0.5 ML PRN PRN IM Sodium Chloride 10 ML PRN PRN IV Enoxaparin Sodium 40 MG DAILY SC Potassium Chloride 0 .STK-MED ONE PO (DC) Potassium Chloride 40 MEQ ONCE ONE PO (DC) Immunization HX Ped.Immunizations UTD Yes DT/Tetanus Unknown Flu [id number] Pneumonia RECEIVED IN PAST TB Test in last year No Family history Family HX Family Hx Insignificant No Diabetes No CAD Yes Hypertension Yes Hyperlipidemia Yes Cancer No TB No Social Hx: Smoking HX Tobacco No Type N/A Are you/the child exposed to second-hand smoke: No Alcohol Alcohol: No Hx of Drug Use Drug Use? No Review of systems: Constitutional see HPI, malaise, weakness. Respiratory No: no symptoms reported. Cardiovascular No no symptoms reported Gastrointestinal/Abdominal No no symptoms reported Genitourinary No: no symptoms reported. Musculoskeletal back pain. Neurological No: no symptoms reported. Exam: Admission Vital Signs: 1ST Vital Signs Result Date Time Pulse Ox 99 04/29 1244 B/P 109/79 04/29 1244 Temp 98.3 04/29 1244 Pulse 93 04/29 1244 Resp 18 04/29 1244 O2 Delivery ROOM AIR 04/29 1629 Last Vital Signs: Vital Signs Result Date Time Pulse Ox 90 04/30 724 B/P 147/73 04/30 724 O2 Delivery ROOM AIR 04/30 724 Temp 98.5 04/30 724 Pulse 78 04/30 724 Resp 20 04/30 724 Exam General appearance: no acute distress, wakens to verbal but sleepy. No complaints Neck: no carotid bruit, no JVD Cardiovascular: irregularly irregular Respiratory: clear to auscultation ABD: soft, no tenderness Extremities: trace pitting edema with good pulses bilaterally Neuro: Answers questions appropriately. Laboratory data: Laboratory Tests 04/30/17 06: Magnesium 1.8 04/30/17 06: Sodium 141, Potassium 2.5 *L, Chloride 94 L, Carbon Dioxide 31, BUN 27 H, Creatinine 1.4 H, Estimated Creat Clear 68, Estimated GFR (MDRD) 49, Glucose 123 H, Calcium 9.0, Total Bilirubin 0.9, AST 33, ALT 28, Alkaline Phosphatase 158 H, Total Protein 6.4, Albumin 3.1 L, Globulin 3.3 H, Albumin/Globulin Ratio 0.9 L, WBC 10.5, RBC 4.93, Hgb 15.0, Hct 44.9, MCV 91.1, RDW 15.1, Plt Count 253, MPV 8.8, Gran % 57.1, Gran # 6.0, Lymphocytes % 32.2, Monocytes % 9.2 , Eosinophils % 0.5, Basophils % 0.9, Lymphocytes # 3.4, Monocytes # 1.0, Eosinophils # 0.1, Basophils # 0.1, PUBS MCHC 33.4, MCH 30.4 04/30/17 0120: Troponin I 0.20 H 04/29/17 1900: Troponin I 0.20 H 04/29/17 1245: B-Natriuretic Peptide 184 H 04/29/17 1245: Sodium 137, Potassium 2.5 *L, Chloride 96 L, Carbon Dioxide 32, BUN 30 H, Creatinine 1.5 H, Estimated Creat Clear 68, Estimated GFR (MDRD) 46, Glucose 135 H, Calcium 9.6, Total Bilirubin 0.9, AST 24, ALT 18, Alkaline Phosphatase 169 H, Troponin I 0.14 H, Total Protein 7.0, Albumin 3.5, Globulin 3.5 H, Albumin/Globulin Ratio 1.0 L, Lipase 123, TSH 0.02 L, Free T4 Index 6.9, Thyroxine (T4) 7.3, T3 Uptake 38, WBC 13.3 H, RBC 4.81, Hgb 14.4, Hct 43.8, MCV 90.9, RDW 15.1, Plt Count 323, MPV 7.4, Gran % 52.5, Gran # 7.0, Lymphocytes % 39.4, Monocytes % 7.0, Eosinophils % 0.5, Basophils % 0.6, Lymphocytes # 5.2 H, Monocytes # 0.9, Eosinophils # 0.1, Basophils # 0.1, PUBS MCHC 33.0, MCH 30.0 Plan Assessment: 1. Elevated troponins consistent with NSTEMI. 2. HTN, controlled 3. Hypokalemia, continue replacement 4. chronic a.fib, CHADS-VASc score of at least 3, on Xarelto 5. Abnormal EKG, chronic 6. HLD, on statin 7. Mild cardiomyopathy, EF 50-55% 8. Ex smoker PINA N-STEMI SCORE PINA N-STEMI SCORE Response Value Age of patient 65 yrs or more 1 Number of risk factors for CAD Presence of 3 or more 1 Prior coronary artery stenosis (seen in angiography) Less than 50% 0 ST-Segment deviation on ECG (>1 min) Present 1 Prior aspirin intake ASA intake in last 7 days 1 Severe anginal chest pain No or 1 episode in 24h 0 Elevated cardiac markers(CK-MB or troponin) Absent 0 Total 4 Plan: 1. Discussed options for therapy (medical vs LHC) and patient wishes to proceed with LHC to known for sure if he has CAD. Risks and benefits discussed. 2. Continue ASA, statin and coreg. at 0756
--- NOTE | 2017-04-30 08:14 | ACUTE CARE PROGRESS NOTE (QUA) ---
Progress Notes Subjective Date 04/30/17 Time 0813 Note Overall patient feels better vis--vis breathing, has no chest pain. His knees continue to bother him. Patient sleeping well, awakens easily and is alert. Good air movement, pulse rate regular, edema is improved. Objective Findings Last VS-Temp:98.5 B/P:147/73 Pulse:78 Resp:20 SaO2:90 ROOM AIR Last weight lbs:232 oz:8 K.462 Method:Bed Scales Assessment/Plan Problem List 1. Hypokalemia 2. Abnormal EKG 3. Elevated troponin 4. Dehydration 5. Bilateral knee pain 6. Dizziness Patient condition Improving Plan: continue current care, LEFT heart catheterization the day, replace potassium, close observation. PT evaluation and probable transfer for long-term care. This inpt stay is expected to cross 2 MNs from start of care Yes at 0814
[2017-04-30] MEDS ORDERED: CENTRUM SILVER1 EAC4 PO (11:34)
[2017-04-30] MEDS ORDERED: PANTOPRAZOLE SO40 MG PO (11:34)
[2017-04-30] MEDS ORDERED: CARVEDILOL6.25 M1 PO (11:40)
--- NOTE | 2017-04-30 11:43 | RADIOLOGY REPORT PS360 ---
PROCEDURE: 2-D M-mode and color Doppler study INDICATIONS FOR THE TEST: Chest pain COPD Heart Murmur Tobacco Smoking Palpitations Fatigue Syncope Edema Hypertension+Diabetes Mellitus Rheumatic Fever SOB+BARGER Obesity Hyperlipidemia Family History HD Additional History PATIENT INFORMATION HEIGHT: 72 WEIGHT:250 GENDER: Male B/P:109/79 2-D/M-MODE INTERPRETATION: 2-D MEASUREMENTS OBSERVED VALUES IN CMS Right Ventricular Dimension (RVDd) 2.7 Interventricular Septum (Thickness)(IVsd) 1.8 Left Ventricular Internal Dimensions(LVIDd) 3.5 Left Ventricular Posterior Wall (Thickness)(LVPWd) 1.4 Aortic Root 2.8 Aortic Cusp Separation 1.9 Left Atrial Dimensions (LAD) 3.8 2D 1. Technically difficult study because of the patient's factor and poor acoustic windows 2. The left atrium is mildly enlarged, left ventricle is normal size, there is mild concentric left ventricular hypertrophy, visually estimated ejection fraction 55% with no obvious regional wall motion abnormality. 3. The right atrium and right ventricle is mildly enlarged with normal contractility. 4. The aortic valve is minimally thickened and fibrosed. 5. The mitral valve has mild mitral calcification there is no mitral stenosis. 6. The tricuspid valve is grossly normal. 7. The pulmonic valve is poorly visualized. 8. No significant pericardial effusion noted. DOPPLER INTERROGATION: Doppler interrogation of the aortic, mitral and tricuspid valves reveals presence of mild aortic, mild mitral and tricuspid regurgitation, tricuspid regurgitant jet velocity is insufficient for calculation of the right ventricular systolic pressure. Diastolic parameters are inconclusive. CONCLUSION: 1. Technically difficult study because of the patient's factor and poor acoustic windows endocardial surfaces are poorly visualized. 2. Mildly enlarged left atrium, normal left ventricular size, mild concentric left ventricular hypertrophy, visually estimated ejection fraction 55% with no obvious regional wall motion abnormality. Diastolic parameters are inconclusive. 3. Mildly enlarged right atrium and right ventricle, contractility of the right ventricle is normal. 4. Mild aortic, mild mitral and tricuspid regurgitation. 5. No significant pericardial effusion noted.
--- NOTE | 2017-04-30 12:55 | RADIOLOGY REPORT PS360 ---
CARDIAC CATHETERIZATION DATE OF CATHETERIZATION:04/30/2017 10:32 AM PROCEDURES: 1. Left heart catheterization 2. Left ventriculogram 3. Selective coronary angiogram 4. Drug-eluting stent deployment to the proximal to mid circumflex artery 5. Drug-eluting stent deployment to the first obtuse marginal artery 6. Drug-eluting stent deployment to the proximal LAD 7. Drug-eluting stent deployment to the mid RCA INDICATION FOR TEST: 1. Coronary artery disease 2. Acute non-ST elevation myocardial infarction Informed consent was obtained prior to the procedure. COMPLICATIONS: None ESTIMATED BLOOD LOSS: Less than 10 ml. TECHNIQUE: One percent lidocaine used to anesthetize the right anterior aspect of the wrist. The right radial artery was accessed via the Seldinger technique. A 6 [place] sheath was placed in the right radial artery. 2.5 mg of verapamil, 800 mcg of nitroglycerin and 5000 U Heparin were given through the arterial sheath. The trap catheter was also used to perform left heart catheterization left ventriculogram and selective coronary angiogram. At the end of the diagnostic procedure an additional 6000 units of heparin was administered intravenously giving an ACT out of range. Brilinta 180 mg was given orally. An [employer] left guide catheter was used intubate the left main artery and a wire was placed in the first obtuse marginal artery and the true circumflex artery. A 2.5 x 12 mm noncompliant balloon was used to predilate the proximal to mid circumflex artery at 20 karina. Following this a 3.5 x 18 mm resolute Tio stent was placed in the proximal circumflex artery extending into the first obtuse marginal artery and deployed at 14 karina. A 4 mm x 12 mm noncompliant balloon was in placed in the proximal aspect of the stent and deployed at 20 karina. The BMW wire was pulled back out of the obtuse marginal artery and placed into the true circumflex artery right 2.5 x 8 mm balloon was used to predilate the struts. A 3 mm x 22 mm resolute Tio stent was deployed at 20 karina reducing the mid circumflex artery stenosis to 0%. This stent was T off of the 3.5 mm stent extending into the first obtuse marginal artery. PINA-3 flow was present before and after the procedure. The BMW wire was pulled back and placed into the mid LAD right 2.5 x 18 mM resolute [place] stent was deployed at 20 karina in the proximal LAD reducing the severe stenosis to 0%. The guide catheter was placed into the right coronary artery and a BMW wire was placed distally and a 2.75 x 18 mm resolute Tio stent was deployed at 20 karina reducing the severe stenosis to 0%. PINA-3 flow was present down the LAD and right coronary artery before and after the procedure. At the end of the procedure the apparatus was removed the sheath was removed good hemostasis was achieved using TR banding patient transferred the postop holding area in stable condition. The closing ACT was 327 seconds ANGIOGRAPHIC RESULTS: 1. The left main artery normal 2. The left anterior descending artery has a proximal hazy concentric 80% stenosis with mid vessel 30% stenoses along a tortuous bend 3. The ramus intermedius is a small vessel and has an ostial 50-60% stenosis 4. The circumflex artery is a dominant vessel and has proximal 20% stenosis with an 80% stenosis proximal to the first obtuse marginal artery and an 80-90% stenosis in the circumflex which artery immediately distal to the first obtuse marginal artery. The mid circumflex artery between the first and second obtuse marginal artery has a long 60% stenosis 5. The right coronary artery is nondominant yet still a large vessel and has a mid vessel 80% stenosis and a distal 60-70% stenosis immediately proximal to the PDA and PLVB 6. The KNOX ventriculogram reveals normal 65-70% 7. The left ventricular end-diastolic pressure 20 mmHg IMPRESSION: 1. Severe three-vessel coronary artery disease 2. Successful stenting of the proximal to mid circumflex artery and a bifurcating manner extending into the first obtuse marginal artery as described above. Critical disease reduced to 0% with 2 drug-eluting stents 3. Successful stenting the proximal LAD severe disease reduced to 0% with 1 drug-eluting stent 4. Successful stenting of the mid nondominant yet still large right coronary artery severe disease reduced to 0% with 1 drug-eluting stent 5. Normal slightly hyperdynamic ventricle consistent with hypertensive heart disease 6. Mildly elevated LVEDP PLAN: 1. Brilinta and aspirin 2. LDL less than 55 3. Tobacco avoidance 4. Cardiac rehabilitation 5. Risk factor modification
[2017-05-01] VITALS (12 sets, daily range): BP systolic 108–135; BP diastolic 55–83
[2017-05-01 06:08] LABS: LYMPH # 3.3 K/mm3 (0.7-4.5); LYMPH % 30.4 % (10-50)
[2017-05-01 06:11] LABS: HEMOGLOBIN 12.6 g/dL (14.1-18.0)
--- NOTE | 2017-05-01 08:38 | ACUTE CARE PROGRESS NOTE (QUA) ---
Progress Notes Subjective Date 05/01/17 Time 0836 Note Patient sleeping comfortably, when awakened has no complaints of dyspnea or chest pain. Notes that he breathes somewhat better last night after cardiac catheterization. Report of cardiac cath reviewed. 3 stents placed. Overall good ejection fraction and symmetric wall motion. Evidence of hypertensive heart disease noted. Exam shows regular heart rate, no murmurs. Lungs are clear, baseline ankle edema. Objective Findings Last VS-Temp:98.7 B/P:133/67 Pulse:93 Resp:18 SaO2:100 OXYGEN Last weight lbs:230 oz:4 K.44 Method:Bed Scales Assessment/Plan Problem List 1. Hypokalemia 2. Abnormal EKG 3. Elevated troponin 4. Dehydration 5. Bilateral knee pain 6. Dizziness Patient condition Improving Plan: continue current care, continue to replace potassium as needed. Physical therapy evaluation in anticipation of LTAC transfer. Cardiovascular disease noted. Patient will start antithrombotic agent and continue Lasix and blood pressure control/atorvastatin. This inpt stay is expected to cross 2 MNs from start of care Yes at 0837
[2017-05-02 03:56] VITALS: BP 105/51
[2017-05-02 06:05] LABS: LYMPH # 2.6 K/mm3 (0.7-4.5); LYMPH % 21.3 % (10-50)
[2017-05-02 06:07] LABS: HEMOGLOBIN 11.1 g/dL (14.1-18.0)
[2017-05-02 07:57] VITALS: BP 116/58
--- NOTE | 2017-05-02 08:34 | DISCHARGE SUMMARY STANDARD ---
Demographics Admit date: 04/29/17 Discharge date: 05/02/17 History of present illness History of present illness 76-year-old white male with multiple medical problems including pituitary insufficiency, hypothyroidism, lymphedema and chronic depression issues presented to the ED via EMS for bilateral knee pain and weakness that has increased over the last few days. Patient reports he has been unable to ambulate since yesterday due to weakness and pain. He reports loss of appetite and decreased oral intake over the last few days, as well. He denies any cough, congestion or ENT symptoms. No fevers or other constitutional symptoms. In the ED, he was found to be hypokalemic with potassium 2.5. Oral replacement was given. EKG showed ST depression in lateral leads which appears to be at his baseline when compared with previous. Troponin was elevated at 0.14. He denies any chest pain, shortness of breath or palpitations. CXR showed a faint opacity in left mid-lower lobe; however no definite pathology. He has mild leukocytosis with WBC at 13 and appears dehydrated with BUN/Creat 30/1.5. He is orthostatic. Patient is interested in ECF placement for rehabilitation and therapy; however was unable to do so due to financial constraints after his discharge a few weeks ago. Patient is admitted to acute care for serial enzymes, cardiology consult and further evaluation. Pt denies any recent chest pain but activity has been limited due to recent back injury 2 wks ago. Denies any fever, chills, cough or congestion. Chronic LE edema has improved with "wrap therapy." Hospital Course Hospital Course: Patient was admitted, initial troponin levels were slightly elevated and patient was subjected a LEFT heart cath which revealed significant coronary disease and 3 stents were placed. Ejection fraction was unremarkable/normal, and patient was continued on current cardiac medications but anti-thrombotic therapy was added. Patient tolerated this procedure well. Patient's home medications for his endocrine issues were restarted. Potassium replacement was continued, and patient's potassium levels are at his baseline. Physical therapy evaluated patient, please see notes. Patient will be transferred today to nursing facility for physical therapy, evaluation for compression therapy/wrapping for chronic edema, therapy for back pain and knee pain, ambulation evaluation and weakness. This morning patient's exam reveals clear lungs, heart rate regular with occasional ectopic beats at baseline. Abdomen soft. Edema 1+, knees crepitant. Overall patient is globally weak and needs assistance with ambulation but is improved over his baseline. Patient will be transferred today. Medications are as noted. Patient will need basic metabolic profile on 05/04/17. Follow-up will be on are regular rounds. Discharge diagnoses Problem List 1. Hypokalemia 2. Abnormal EKG 3. Elevated troponin 4. Dehydration 5. Bilateral knee pain 6. Dizziness 7. Coronary atherosclerosis of solomon coronary artery Medications Medications: Discharge meds are as noted. Follow up Follow up in office in: 3 DAYS with: Lizbeth Smith APRN at 0834
[2017-05-02] MEDS ORDERED: CARVEDILOL6.25 MG PO (08:38)
[2017-05-02] MEDS ORDERED: LIPITOR40 M1 PO (08:38)
[2017-05-02] MEDS ORDERED: BRILINTA90 MG PO (08:39)
[2017-05-02] MEDS ORDERED: KLOR-CON M2020 MEQ PO (08:40)
[2017-05-02] MEDS ORDERED: TYLENOL325 MG PO (08:41)
[2017-05-02 11:00] VITALS: BP 116/58
== END 2017-05-02 10:55 | DRG 246 ==
LOC: ER 12:42 → 2ND 15:16
PROVIDERS: Emergency Medicine; Internal Medicine; Internal Medicine Adolescent Medicine
PROC: 4A023N7 Measurement of Cardiac Sampling and Pressure, Left Heart, Percutaneous Approach (ICD-10-PCS; principal; 2017-04-30 11:30)
PROC: 027237Z Dilation of Coronary Artery, Three Arteries with Four or More Drug-eluting Intraluminal Devices, Percutaneous Approach (ICD-10-PCS; principal; 2017-04-30 11:30)
PROC: B2151ZZ Fluoroscopy of Left Heart using Low Osmolar Contrast (ICD-10-PCS; principal; 2017-04-30 11:30)
PROC: B2111ZZ Fluoroscopy of Multiple Coronary Arteries using Low Osmolar Contrast (ICD-10-PCS; principal; 2017-04-30 11:30)
DX: I21.4 Non-ST elevation (NSTEMI) myocardial infarction (principal); I42.9 Cardiomyopathy, unspecified; I48.2 Chronic atrial fibrillation; I25.10 Atherosclerotic heart disease of native coronary artery without angina pectoris; I11.9 Hypertensive heart disease without heart failure; Z87.891 Personal history of nicotine dependence; Z79.01 Long term (current) use of anticoagulants; E87.6 Hypokalemia; I89.0 Lymphedema, not elsewhere classified
CPT/HCPCS: C1725; C1760; C1769; C1876; J1644; J2405; Q9967

== ENCOUNTER 2017-05-04 07:06 | Emergency (ER) | payer MEDICARE, OTHER ==
[~2017-05-04] VITALS: Ht 182.9 cm; Wt 98.0 kg
[~2017-05-04 07:06] MED LIST changes: +BRILINTA90 MG PO; +CARVEDILOL6.25 M1 PO; +CARVEDILOL6.25 MG PO; +CENTRUM SILVER1 EAC4 PO; +KLOR-CON M2020 MEQ PO; +LIPITOR40 M1 PO
--- OUTSIDE RECORDS SUMMARY | 2017-05-04 07:53 | External Medical Summary Rpt | Continuity of Care Document ---
Author Author Organization Address Unknown Phone Unavailable Care Team Providers Care Manager Entry Name Role Phone , Unavailable Unavailable EMS Current Medications Section EMS Allergies and Adverse Reactions EMS Past Medical History Medications Administered Section EMS Procedures Performed EMS Vital Signs EMS Patient Care Report Narrative Dispatched to residence for 76 year old male c/o , upon arrival pt was supine in bed, caregiver advises he will not get out of bed just lays all the Time has Chronic back and knee pain, she unable to get him up, Pt advises he hurts all the time has been to the hospital ([facility]) they aren t doing anything he still hurts, Pt has no new complaints, advises when he s home alone he can t get up and down to restroom or get anything to drink and he gets really dry. Unable to get Stretcher to Pt due to To confined space and doors locked with lost keys, Pt was walked with assistance, placed on stretcher by kitchen door, secured with strapsx5 and moved to EC unit, pt vitals obtained, ALS assessment was done, pt has Pedal edema, but is looking better than normal , not as big, also has them wrapped. Pt is alert and oriented x4, skin PWD, PERRL,Pt advises he just tired he wants to feel better and get back on his feet but no one will help him, Pt advised he would get his IV at the hospital if he needs one, Pt has chronic back pain and knee pain, pt just wants some help, asked Pt if he would consider a usp for rehab if we could get it worked out, Pt advised he would go if finances could get worked out, Pt was monitored and reassessed enroute, With no change,report was called to ER, upon arrival pt was taken to bed#5, moved with bottom sheet to bed, care and report was [facility] over to [facility]
--- OUTSIDE RECORDS SUMMARY | 2017-05-04 07:53 | External Medical Summary Rpt | Continuity of Care Document ---
Author Author Organization Address Unknown Phone Unavailable Care Team Providers Care Pre Billing Specialist Name Role Phone , Unavailable Unavailable EMS Current Medications Section EMS Allergies and Adverse Reactions EMS Past Medical History Medications Administered Section EMS Procedures Performed EMS Vital Signs EMS Patient Care Report Narrative D- Receive direct call in from [facility] to find the pt laying in bed 217. Pt had been in care of the hospital since the previous . C- Pt is a 76 year old male who was originally brought into to [facility] of weakness and dehydration. Pts only current complaint is his chronic back pain. H- Pt has a history of Chronic Back Pain, Afib, And Edema in the lower extremities. Pt is allergic to sulfa. Pt list of medication were transported with him. A- Pt Assessment revealed no abnormalities or deformities. R- Pt vitals and assessment were performed and are as listed on previous page. Pt was transferred in a position of comfort. T- Pt was placed on the stretcher via draw sheet method x4. Pt was placed in a position of comfort. Pt was taken to the ambulance via stretcher. Pt was transferred without change enroute. Pt was taken into the facility via stretcher. Pt was placed in bed 111a via draw sheet method x4. Pt care was given to Pamela Hwang RN. M- Pt was transported by ambulance due to requiring oxygen through out transport due to low oxygen saturation. Pt was also unable to be transported in an erect sitting position due to chronic back pain.
--- OUTSIDE RECORDS SUMMARY | 2017-05-04 07:53 | External Medical Summary Rpt | Continuity of Care Document ---
Author Author Organization Address Unknown Phone Unavailable Care Team Providers Care Wastewater Treatment Supervisor Name Role Phone , Unavailable Unavailable EMS [...] the time has been to the hospital ([facility]) they aren t doing anything he [...] asked Pt if he would consider a retirement for rehab if we could get it worked out, Pt advised he would go if finances could get worked out, Pt was monitored and reassessed enroute, With no change,report was called to ER, upon arrival pt was taken to bed#5, moved with bottom sheet to bed, care and report was turned over to Lissa Marcus [facility]
--- OUTSIDE RECORDS SUMMARY | 2017-05-04 07:53 | External Medical Summary Rpt | Continuity of Care Document ---
Author Author Organization Address Unknown Phone Unavailable Care Team Providers Care Continuous Improvement Manager Name Role Phone , Unavailable Unavailable EMS Current Medications Section EMS Allergies and Adverse Reactions EMS Past Medical History Medications Administered Section EMS Procedures Performed EMS Vital Signs EMS Patient Care Report Narrative D- Receive direct call in from [facility] to find the pt laying in bed 217. Pt had been in care of the hospital since the previous . C- Pt is a 76 year old male who was originally brought into to [facility] of weakness and dehydration. Pts only current [...]
--- OUTSIDE RECORDS SUMMARY | 2017-05-04 07:57 | External Medical Summary Rpt | CCD ---
Author Author , DOMINGA ORR Address Unknown Phone [email or web address] Immunization Name Date Rout CVX Reac Dose Comm Prov Is Faci e tion ent ider Refu lity Give sed n PPV2 08-0 33 0.5 Hist [facility] No [facility] 3 1-20 mL oric 1 1 15 al Info rmat ion - Sour ce Unsp ecif ied
--- OUTSIDE RECORDS SUMMARY | 2017-05-04 07:57 | External Medical Summary Rpt | CCD ---
Author Author , DOMINGA ORR Address Unknown Phone [employer] Immunization Name Date Rout CVX Reac Dose Comm Prov Is Faci e tion ent ider Refu lity Give sed n PPV2 08-0 33 0.5 Hist [facility] No [facility] 3 1-20 mL oric 1 1 15 al Info rmat ion - Sour ce Unsp ecif ied
--- OUTSIDE RECORDS SUMMARY | 2017-05-04 07:57 | External Medical Summary Rpt | CCD ---
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9 CHRONIC KIDNEY DISEASE, UNSPECIFIED N28.9 DISORDER OF KIDNEY AND URETER, UNSPECIFIED N39.0 URINARY TRACT INFECTION, SITE NOT SPECIFIED R31.9 HEMATURIA, UNSPECIFIED R42 DIZZINESS AND GIDDINESS R53.1 WEAKNESS R60.0 LOCALIZED EDEMA S42.293A OTH DISP FX OF UPPER END OF UNSP HUMERUS, INIT FOR CLOS FX Z87.19 PERSONAL HISTORY OF OTHER DISEASES OF THE DIGESTIVE SYSTEM Results Labs Lab Lab Date Result Refere Interp Status Commen Order Detail nces retati t Range on Basic metabolic panel (05-02-2017 05:55) Serum 11-12-2 = 137 136-145 complet sodium 017 mmoL/L ed measure 05:55 ment Serum 05-02-2 = 2.7 3.5-5.1 complet potassi 017 mmoL/L ed um 05:55 measure ment Comment: CRITICAL RESULTS Comment: RESULTS CALLED TO: Shanel SHAW RN 05/02/17 0627 Mauricio Coelho Serum = 153 74-106 complet or 017 mg/dL ed plasma 05:55 glucose measure ment (mas Estimat = 42 >60 complet ed 017 ML/MIN ed glomeru 05:55 lar filtrat ion rate (GF Comment: REFERENCE RANGE: >60 ML/MIN/1.73 SQUARE METERS Comment: If this patient is -Cypriot, then multiply the Comment: result by 1.210. Estimat = 59 50-200 complet ion of 017 ML/MIN ed creatin 05:55 ine renal clearan ce Serum = 1.6 0.70-1. complet or 017 mg/dL 30 ed plasma 05:55 creatin ine measure ment ( Carbon = 28 21.0-32 complet dioxide 017 mmoL/L .0 ed 05:55 measure ment Serum = 98 98-107 complet or 017 mmoL/L ed plasma 05:55 chlorid e measure ment (mo Serum = 8.2 8.5-10. complet or 017 mg/dL 1 ed plasma 05:55 calcium measure ment (mas Serum = 19 7-18 complet or 017 mg/dL ed plasma 05:55 urea nitroge n measure men CBC w auto diff (05-02-2017 05:55) Red = 3.74 4.6-6.2 complet blood 017 M/mm3 ed cell 05:55 count Blood = 239 142-424 complet platele 017 K/mm3 ed t count 05:55 Automat = 8.9 7.4-10. complet ed 017 fl 4 ed blood 05:55 platele t mean volume arianne [place] % = 9.3 % 1.7-9.3 complet 017 ed 05:55 Absolut 2 = 1.2 0.1-1.0 complet e 017 K/mm3 ed monocyt 05:55 e count Automat = 90.4 82.2-97 complet ed 017 fl .8 ed erythro 05:55 cyte mean corpusc ular v Automat = 33.0 31.8-35 complet ed 017 g/dl .4 ed erythro 05:55 cyte mean corpusc ular h Mean = 29.8 27-31.2 complet corpusc 017 pg ed ular 05:55 hemoglo bin (MCH) determ Lymphoc = 21.3 10-50 complet yte 017 % ed count, 05:55 blood, automat ed Absolut = 2.6 0.7-4.5 complet e 017 K/mm3 ed lymphoc 05:55 yte count Blood = 11.1 14.1-18 complet hemoglo 017 g/dL .0 ed bin 05:55 measure ment (mass/v olum Blood = 33.8 42.0-52 complet hematoc 017 % .0 ed rit 05:55 (volume fractio n) Granulo = 68.8 37.0-80 complet cyte 017 % .0 ed percent 05:55 age Blood = 8.6 1.3-8.0 complet granulo 017 K/mm3 ed cytes 05:55 automat ed count (numb Automat = 0.4 % 0.1-12. complet ed 017 0 ed blood 05:55 eosinop hils/10 0 leukocy t Automat = 0.1 0.0-0.4 complet ed 017 K/mm3 ed blood 05:55 eosinop hil count Baso % = 0.2 % 0.1-2.0 complet 017 ed 05:55 Automat = 0.0 0-0.2 complet ed 017 K/MM3 ed blood 05:55 basophi l count (count/ vo Blood = 12.4 4.8-10. complet leukocy 017 K/MM3 8 ed presley 05:55 count (number /volume ) Automat = 15.1 11.5-17 complet ed 017 % .5 ed erythro 05:55 cyte distrib ution width CBC w auto diff (05-01-2017 05:55) Automat = 0.1 0-0.2 complet ed 017 K/MM3 ed blood 05:55 basophi l count (count/ vo Baso % = 0.7 % 0.1-2.0 complet 017 ed 05:55 Automat = 0.1 0.0-0.4 complet ed 017 K/mm3 ed blood 05:55 eosinop hil count Automat = 0.9 % 0.1-12. complet ed 017 0 ed blood 05:55 eosinop hils/10 0 leukocy t Blood = 10.7 4.8-10. complet leukocy 017 K/MM3 8 ed presley 05:55 count (number /volume ) Automat = 15.3 11.5-17 complet ed 017 % .5 ed erythro 05:55 cyte distrib ution width Red = 4.23 4.6-6.2 complet blood 017 M/mm3 ed cell 05:55 count Blood = 260 142-424 complet platele 017 K/mm3 ed t count 05:55 Automat = 7.7 7.4-10. complet ed 017 fl 4 ed blood 05:55 platele t mean volume arianne [place] % = 7.1 % 1.7-9.3 complet 017 ed 05:55 Absolut = 0.8 0.1-1.0 complet e 017 K/mm3 ed monocyt 05:55 e count Automat = 91.9 82.2-97 complet ed 017 fl .8 ed erythro 05:55 cyte mean corpusc ular v Automat = 32.3 31.8-35 complet ed 017 g/dl .4 ed erythro 05:55 cyte mean corpusc ular h Mean = 29.7 27-31.2 complet corpusc 017 pg ed ular 05:55 hemoglo bin (MCH) determ Lymphoc = 30.4 10-50 complet yte 017 % ed count, 05:55 blood, automat ed Absolut = 3.3 0.7-4.5 complet e 017 K/mm3 ed lymphoc 05:55 yte count Blood = 12.6 14.1-18 complet hemoglo 017 g/dL .0 ed bin 05:55 measure ment (mass/v olum Blood = 38.9 42.0-52 complet hematoc 017 % .0 ed rit 05:55 (volume fractio n) Granulo = 60.9 37.0-80 complet cyte 017 % .0 ed percent 05:55 age Blood = 6.5 1.3-8.0 complet granulo 017 K/mm3 ed cytes 05:55 automat ed count (numb Basic metabolic panel (05-01-2017 05:55) Serum = 137 136-145 complet sodium 017 mmoL/L ed measure 05:55 ment Serum = 2.5 3.5-5.1 complet potassi 017 mmoL/L ed um 05:55 measure ment Comment: CRITICAL RESULTS Comment: RESULTS CALLED TO: Margoth ALFREDO RN 05/01/17 0615 CoelhoMauricio Serum = 121 74-106 complet or 017 mg/dL ed plasma 05:55 glucose measure ment (mas Estimat = 54 >60 complet ed 017 ML/MIN ed glomeru 05:55 lar filtrat ion rate (GF Comment: REFERENCE RANGE: >60 ML/MIN/1.73 SQUARE METERS Comment: If this patient is -Cypriot, then multiply the Comment: result by 1.210. Estimat = 73 50-200 complet ion of 017 ML/MIN ed creatin 05:55 ine renal clearan ce Serum = 1.3 0.70-1. complet or 017 mg/dL 30 ed plasma 05:55 creatin ine measure ment ( Carbon = 28 21.0-32 complet dioxide 017 mmoL/L .0 ed 05:55 measure ment Serum = 101 98-107 complet or 017 mmoL/L ed plasma 05:55 chlorid e measure ment (mo Serum = 8.4 8.5-10. complet or 017 mg/dL 1 ed plasma 05:55 calcium measure ment (mas Serum = 19 7-18 complet or 017 mg/dL ed plasma 05:55 urea nitroge n measure men Activated clotting time (04-30-2017 12:24) Activat = 327 74-125 complet ed 017 SEC ed clottin 12:24 g time Activated clotting time (04-30-2017 12:04) Activat 2 > 400 74-125 complet ed 017 SEC ed clottin 12:04 g time Magnesium measurement (04-30-2017 06:20) Magnesi = 1.8 1.4-2.2 complet um 017 mg/dL ed measure 06:20 ment CBC w auto diff (04-30-2017 06:20) Automat = 0.1 0.0-0.4 complet ed 017 K/mm3 ed blood 06:20 eosinop hil count Blood = 10.5 4.8-10. complet leukocy 017 K/MM3 8 ed presley 06:20 count (number /volume ) Automat = 15.1 11.5-17 complet ed 017 % .5 ed erythro 06:20 cyte distrib ution width Red = 4.93 4.6-6.2 complet blood 017 M/mm3 ed cell 06:20 count Blood = 253 142-424 complet platele 017 K/mm3 ed t count 06:20 Automat = 8.8 7.4-10. complet ed 017 fl 4 ed blood 06:20 platele t mean volume arianne [place] % = 9.2 % 1.7-9.3 complet 017 ed 06:20 Absolut = 1.0 0.1-1.0 complet e 017 K/mm3 ed monocyt 06:20 e count Automat = 91.1 82.2-97 complet ed 017 fl .8 ed erythro 06:20 cyte mean corpusc ular v Automat = 33.4 31.8-35 complet ed 017 g/dl .4 ed erythro 06:20 cyte mean corpusc ular h Mean = 30.4 27-31.2 complet corpusc 017 pg ed ular 06:20 hemoglo bin (MCH) determ Lymphoc = 32.2 10-50 complet yte 017 % ed count, 06:20 blood, automat ed Absolut = 3.4 0.7-4.5 complet e 017 K/mm3 ed lymphoc 06:20 yte count Blood = 15.0 14.1-18 complet hemoglo 017 g/dL .0 ed bin 06:20 measure ment (mass/v olum Blood = 44.9 42.0-52 complet hematoc 017 % .0 ed rit 06:20 (volume fractio n) Granulo = 57.1 37.0-80 complet cyte 017 % .0 ed percent 06:20 age Blood = 6.0 1.3-8.0 complet granulo 017 K/mm3 ed cytes 06:20 automat ed count (numb Automat = 0.5 % 0.1-12. complet ed 017 0 ed blood 06:20 eosinop hils/10 0 leukocy t Baso % = 0.9 % 0.1-2.0 complet 017 ed 06:20 Automat = 0.1 0-0.2 complet ed 017 K/MM3 ed blood 06:20 basophi l count (count/ vo Comprehensive metabolic panel (04-30-2017 06:20) Serum = 3.1 3.4-5.0 complet or 017 gm/dL ed plasma 06:20 albumin measure ment (mas Serum = 0.9 1.1-1.8 complet or 017 ed plasma 06:20 albumin /globul in mass ra Protein = 6.4 6.4-8.2 complet total 017 gm/dL ed ser/beronica 06:20 s ALT = 28 12-78 complet (SGPT) 017 U/L ed ser/beronica 06:20 s Serum = 33 15-37 complet or 017 U/L ed plasma 06:20 asparta te aminotr ansfera Comment: MAY BE ELEVATED DUE TO SLIGHT HEMOLYSIS Serum = 141 136-145 complet sodium 017 mmoL/L ed measure 06:20 ment Serum = 2.5 3.5-5.1 complet potassi 017 mmoL/L ed um 06:20 measure ment Comment: CRITICAL RESULTS Comment: RESULTS CALLED TO: EDG 04/30/17 0704 Mtaa Bradley Comment: MAY BE ELEVATED DUE TO SLIGHT HEMOLYSIS Serum 04-30-2 = 123 74-106 complet or 017 mg/dL ed plasma 06:20 glucose measure ment (mas Serum = 3.3 1.3-3.2 complet globuli 017 gm/dL ed n 06:20 measure ment (mass/v olume) Estimat = 49 >60 complet ed 017 ML/MIN ed glomeru 06:20 lar filtrat ion rate (GF Comment: REFERENCE RANGE: >60 ML/MIN/1.73 SQUARE METERS Comment: If this patient is -Cypriot, then multiply the Comment: result by 1.210. Estimat = 68 50-200 complet ion of 017 ML/MIN ed creatin 06:20 ine renal clearan ce Serum = 1.4 0.70-1. complet or 017 mg/dL 30 ed plasma 06:20 creatin ine measure ment ( Carbon = 31 21.0-32 complet dioxide 017 mmoL/L .0 ed 06:20 measure ment Serum = 94 98-107 complet or 017 mmoL/L ed plasma 06:20 chlorid e measure ment (mo Serum = 9.0 8.5-10. complet or 017 mg/dL 1 ed plasma 06:20 calcium measure ment (mas Serum = 27 7-18 complet or 017 mg/dL ed plasma 06:20 urea nitroge n measure men Serum = 0.9 0.2-1.0 complet or 017 mg/dL ed plasma 06:20 total bilirub in measure m Serum = 158 46-116 complet or 017 U/L ed plasma 06:20 alkalin e phospha tase arianne Serum or plasma troponin i.cardiac measu (04-30-2017 01:20) Serum 1110-2 = 0.20 0.00-0. complet or 017 ng/mL 06 ed plasma 01:20 troponi n i.cardi ac measu Comment: 0.04 - 0.49 IS AN INDETERMINANT ZONE Comment: And can be consistent with the following diseases: Comment: Comment: Trauma Critically ill patients Montaño >30% TBSA Comment: CHF Hypothyroidism Amyloidosis Comment: Hypertension Myocarditis Sepsis Comment: Hypotension Rhabdomyolysis Vital exhaust. Comment: Postop surgery Pulmonary embolism CVA Comment: Renal failure Acute neurological disease Atrial fib. Serum or plasma troponin i.cardiac measu (04-29-2017 19:00) Comment: COMMENTS TO SENIOR PRODUCTION MANAGER: Q6 X [address] TOP DR Comment: CARLITA Serum = 0.20 0.00-0. complet or 017 ng/mL 06 ed plasma 19:00 troponi n i.cardi ac measu Comment: 0.04 - 0.49 IS AN INDETERMINANT ZONE Comment: And can be consistent with the following diseases: Comment: Comment: Trauma Critically ill patients [place] >30% TBSA Comment: CHF Hypothyroidism Amyloidosis Comment: Hypertension Myocarditis Sepsis Comment: Hypotension Rhabdomyolysis Vital exhaust. Comment: Postop surgery Pulmonary embolism CVA Comment: Renal failure Acute neurological disease Atrial fib. Brain natriuretic peptide (04-29-2017 12:45) Brain = 184 0-100 complet natriur 017 pg/mL ed etic 12:45 peptide Serum or plasma troponin i.cardiac measu (04-29-2017 12:45) Serum = 0.14 0.00-0. complet or 017 ng/mL 06 ed plasma 12:45 troponi n i.cardi ac measu Comment: 0.04 - 0.49 IS AN INDETERMINANT ZONE Comment: And can be consistent with the following diseases: Comment: Comment: Trauma Critically ill patients [place] >30% TBSA Comment: CHF Hypothyroidism Amyloidosis Comment: Hypertension Myocarditis Sepsis Comment: Hypotension Rhabdomyolysis Vital exhaust. Comment: Postop surgery Pulmonary embolism CVA Comment: Renal failure Acute neurological disease Atrial fib. THYROID PANEL 2 (04-29-2017 12:45) Serum = 0.02 0.358-3 complet or 017 uIU/ml .740 ed plasma 12:45 thyroid stimula ting horm Thyroxi = 7.3 4.7-13. complet ne 017 ug/dl 3 ed 12:45 T3 = 38 % 31-39 complet uptake 017 ed 12:45 Serum = 6.9 5.93-13 complet or 017 ug/dl .13 ed plasma 12:45 thyroxi ne (T4) free inde Lipase measurement (04-29-2017 12:45) Lipase = 123 73-393 complet measure 017 U/L ed ment 12:45 Comprehensive metabolic panel (04-29-2017 12:45) Protein = 7.0 6.4-8.2 complet total 017 gm/dL ed ser/beronica 12:45 s ALT = 18 12-78 complet (SGPT) 017 U/L ed ser/beronica 12:45 s Serum = 24 15-37 complet or 017 U/L ed plasma 12:45 asparta te aminotr ansfera Serum = 137 136-145 complet sodium 017 mmoL/L ed measure 12:45 ment Serum = 2.5 3.5-5.1 complet potassi 017 mmoL/L ed um 12:45 measure ment Comment: CRITICAL RESULTS Comment: RESULTS CALLED TO: EAL 04/29/17 1330 KirkMata Serum = 135 74-106 complet or 017 mg/dL ed plasma 12:45 glucose measure ment (mas Serum = 3.5 1.3-3.2 complet globuli 017 gm/dL ed n 12:45 measure ment (mass/v olume) Estimat = 46 >60 complet ed 017 ML/MIN ed glomeru 12:45 lar filtrat ion rate (GF Comment: REFERENCE RANGE: >60 ML/MIN/1.73 SQUARE METERS Comment: If this patient is -Cypriot, then multiply the Comment: result by 1.210. Estimat = 68 50-200 complet ion of 017 ML/MIN ed creatin 12:45 ine renal clearan ce Serum = 1.5 0.70-1. complet or 017 mg/dL 30 ed plasma 12:45 creatin ine measure ment ( Carbon = 32 21.0-32 complet dioxide 017 mmoL/L .0 ed 12:45 measure ment Serum = 96 98-107 complet or 017 mmoL/L ed plasma 12:45 chlorid e measure ment (mo Serum = 9.6 8.5-10. complet or 017 mg/dL 1 ed plasma 12:45 calcium measure ment (mas Serum = 30 7-18 complet or 017 mg/dL ed plasma 12:45 urea nitroge n measure men Serum = 0.9 0.2-1.0 complet or 017 mg/dL ed plasma 12:45 total bilirub in measure m Serum = 169 46-116 complet or 017 U/L ed plasma 12:45 alkalin e phospha tase arianne Serum = 3.5 3.4-5.0 complet or 017 gm/dL ed plasma 12:45 albumin measure ment (mas Serum = 1.0 1.1-1.8 complet or 017 ed plasma 12:45 albumin /globul in mass ra Serum or plasma cortisol measurement (ma (04-29-2017 12:45) Serum = 3.9 . complet or 017 ug/dL ed plasma 12:45 cortiso l measure ment (ma Comment: Cortisol AM 6.2 - 19.4 Comment: Cortisol PM 2.3 - 11.9 Comment: Performed at: [facility] Comment: [id number], [place] [id number] Comment: [employer] House Cook: Jarrod Chaves PhD, Phone: [phone] CBC w auto diff (04-19-2017 05:00) Blood = 12.2 4.8-10. complet leukocy 017 K/MM3 8 ed presley 05:00 count (number /volume ) Automat = 14.6 11.5-17 complet ed 017 % .5 ed erythro 05:00 cyte distrib ution width Red = 4.01 4.6-6.2 complet blood 017 M/mm3 ed cell 05:00 count Blood = 242 142-424 complet platele 017 K/mm3 ed t count 05:00 Automat = 7.8 7.4-10. complet ed 017 fl 4 ed blood 05:00 platele t mean volume arianne [place] % = 4.7 % 1.7-9.3 complet 017 ed 05:00 Absolut = 0.6 0.1-1.0 complet e 017 K/mm3 ed monocyt 05:00 e count Automat = 92.3 82.2-97 complet ed 017 fl .8 ed erythro 05:00 cyte mean corpusc ular v Automat = 32.8 31.8-35 complet ed 017 g/dl .4 ed erythro 05:00 cyte mean corpusc ular h Mean = 30.2 27-31.2 complet corpusc 017 pg ed ular 05:00 hemoglo bin (MCH) determ Lymphoc = 25.6 10-50 complet yte 017 % ed count, 05:00 blood, automat ed Absolut = 3.1 0.7-4.5 complet e 017 K/mm3 [...] % 0.1-2.0 complet 017 ed 05:00 Automat 10-30-2 = 0.0 0-0.2 complet ed 017 K/MM3 ed blood 05:00 basophi l count (count/ vo Basic metabolic panel (04-19-2017 05:00) Serum 04-19-2 = 138 136-145 complet sodium 017 mmoL/L ed measure 05:00 ment Serum 2 = 3.5 3.5-5.1 complet potassi 017 mmoL/L ed um 05:00 measure ment Serum = 143 74-106 complet or 017 mg/dL ed plasma 05:00 glucose measure ment (mas Estimat 2 = 54 >60 complet ed 017 ML/MIN ed glomeru 05:00 lar filtrat ion rate (GF Comment: REFERENCE RANGE: >60 ML/MIN/1.73 SQUARE METERS Comment: If this patient is -Cypriot, then multiply the Comment: result by 1.210. [...] 05:00 chlorid e measure ment (mo Serum 2 = 8.7 8.5-10. complet or 017 mg/dL 1 ed plasma 05:00 calcium measure ment (mas Serum 2 = 24 7-18 complet or 017 mg/dL ed plasma 05:00 urea nitroge n measure men Blood lactic acid measurement (moles/vol (04-18-2017 14:10) Comment: COMMENTS TO SENIOR PRODUCTION MANAGER: PLEASE RE RUN AT 1400 AND REPORT Comment: TO DR ZAZUETA Blood = 2.0 0.4-2.0 complet lactic 017 mmol/L ed acid 14:10 measure ment (moles/ vol Urinalysis with microscopy (04-18-2017 09:25) Urine = NONE O complet leukocy 017 wbc/hpf ed presley 09:25 count (number /volume ) Urine 0.2 0.2 NEG complet urobili 017 [...] CLEAR L ed nce 09:25 determi nation Urinalysis dipstick W Reflex Microscopic panel in [...] 09:25 ce] in Urine by Test strip CRP (04-18-2017 08:46) CRP = 9.2 0.0-0.9 [...] Comment: CRITICAL RESULTS Comment: RESULTS CALLED TO: SHYHillaryLUIS 04/18/17 0922 Beata Paredes Serum 04-18-2 = 108 74-106 complet or 017 mg/dL ed plasma 08:46 glucose measure ment (mas Serum 2 = 3.4 1.3-3.2 complet globuli 017 gm/dL ed n 08:46 measure ment (mass/v olume) Estimat = 59 >60 complet ed 017 ML/MIN ed glomeru 08:46 lar filtrat ion rate (GF Comment: REFERENCE RANGE: >60 ML/MIN/1.73 SQUARE METERS Comment: If this patient is -Cypriot, then multiply the Comment: result by 1.210. [...] plasma 08:46 albumin /globul in mass ra Blood lactic acid measurement (moles/vol (04-18-2017 08:46) [...] blood 08:46 platele t mean volume arianne [place] % = 6.4 % 1.7-9.3 complet 017 [...] blood 08:46 basophi l count (count/ vo Urinalysis dipstick W Reflex Microscopic panel in [...] ce] in Urine by Test strip Urobili 10-05-2 0.2 NEG complet nogen 017 ed [Presen 07:02 ce] in Urine by Test strip Differential panel, method unspecified - (03-25-2017 06:45) LYMPH 7 % 10% - Low complet 017 50% ed 06:45 Platele NORMAL complet ts 017 ed [Presen 06:45 ce] in Blood by Light microsc opy
--- OUTSIDE RECORDS SUMMARY | 2017-05-04 07:57 | External Medical Summary Rpt | CCD ---
Author Author , DOMINGA Organization DOMINGA Address Unknown Phone [email or web address] Purpose Continuity of Care Document - 11-30-2016 [...] SQUARE METERS Comment: If this patient is -Egyptian, then multiply the Comment: result by 1.210. [...] blood 05:55 platele t mean volume arianne [place] % = 9.3 % 1.7-9.3 complet 017 [...] blood 05:55 platele t mean volume arianne [place] % = 7.1 % 1.7-9.3 complet 017 [...] SQUARE METERS Comment: If this patient is -Egyptian, then multiply the Comment: result by 1.210. [...] blood 06:20 platele t mean volume arianne [place] % = 9.2 % 1.7-9.3 complet 017 [...] Comment: RESULTS CALLED TO: EDG 04/30/17 0704 Mata Bradley Comment: MAY BE ELEVATED DUE TO [...] SQUARE METERS Comment: If this patient is -Egyptian, then multiply the Comment: result by 1.210. [...] i.cardiac measu (04-29-2017 19:00) Comment: COMMENTS TO TECHNICAL INTERN: Q6 X 3 REPORT ABNORMAL LAB TOP [...] SQUARE METERS Comment: If this patient is -Egyptian, then multiply the Comment: result by 1.210. [...] PM 2.3 - 11.9 Comment: Performed at: [facility] Comment: [id number], [place] [id number] Comment: Bus Boy: Jarrod Chaves PhD, Phone: [phone] CBC w auto diff (04-19-2017 05:00) Blood [...] blood 05:00 platele t mean volume arianne [place] % = 4.7 % 1.7-9.3 complet 017 [...] SQUARE METERS Comment: If this patient is -Egyptian, then multiply the Comment: result by 1.210. [...] measurement (moles/vol (04-18-2017 14:10) Comment: COMMENTS TO TECHNICAL INTERN: PLEASE RE RUN AT 1400 AND REPORT [...] SQUARE METERS Comment: If this patient is -Egyptian, then multiply the Comment: result by 1.210. [...] blood 08:46 platele t mean volume arianne [place] % = 6.4 % 1.7-9.3 complet 017 [...]
--- OUTSIDE RECORDS SUMMARY | 2017-05-04 07:59 | External Medical Summary Rpt ---
Author Author DOMINGA Culver, [employer] Address Unknown Phone Unavailable Results Basic metabolic panel in Blood Observa Value Referen Units Interpr Notes Date tion ce etation Range Urea 7 - 18 mg/dL High No May 02 nitrogen informati 2016 5:55 [Mass/vol on in AM ume] in source Serum or data Plasma Calcium 8.5 - mg/dL Low No May 02 [Mass/vol 10.1 informati 2016 5:55 ume] in on in AM Serum or source Plasma data Chloride 98 - 107 mmoL/L Normal No May 02 [Moles/vo informati 2016 5:55 lume] in on in AM Serum or source Plasma data Carbon 21.0 - mmoL/L Normal No May 02 dioxide, 32.0 informati 2016 5:55 total on in AM [Moles/vo source lume] in data Serum or Plasma Creatinin 0.70 - mg/dL High No May 02 e 1.30 informati 2016 5:55 [Mass/vol on in AM ume] in source Serum or data Plasma Creatinin 50 - 200 ML/MIN No No May 02 e renal informati informati 2016 5:55 clearance on in on in AM source source predicted data data by Cockcroft -Gault formula Estimated >60 ML/MIN No REFERENCE May 02 informati RANGE: 2017 5:55 glomerula on in >60 AM r source ML/MIN/1. filtratio data 73 SQUARE n rate METERSIf (GF this patient is -A merican, then multiply theresult by 1.210. Glucose 74 - 106 mg/dL High No May 02 [Mass/vol informati 2016 5:55 ume] in on in AM Serum or source Plasma data Potassium 3.5 - 5.1 mmoL/L Low alert May 02 2016 5:55 [Moles/vo CRITICAL AM lume] in RESULTS Serum or Plasma RESU LTS CALLED TO: Shanel SHAW RN 05/02/17 0627 [place] [facility] [facility] Sodium 136 - 145 mmoL/L Normal No May 02 [Moles/vo informati 2016 5:55 lume] in on in AM Serum or source Plasma data CBC W Auto Differential panel in Blood Observa Value Referen Units Interpr Notes Date tion ce etation Range Basophils 0 - 0.2 K/MM3 Normal No May 02 informati 2016 5:55 [#/volume on in AM ] in source Blood by data Automated count Basophils 0.1 - 2.0 % Normal No May 02 informati 2017 5:55 leukocyte on in AM s in source Blood by data Automated count Eosinophi 0.0 - 0.4 K/mm3 Normal No May 02 ls informati 2016 5:55 [#/volume on in AM ] in source Blood by data Automated count Eosinophi 0.1 - % Normal No May 02 ls/100 12.0 informati 2017 5:55 leukocyte on in AM s in source Blood by data Automated count Granulocy 1.3 - 8.0 K/mm3 High No May 02 presley informati 2016 5:55 [#/volume on in AM ] in source Blood by data Automated count Granulocy 37.0 - % Normal No May 02 presley/100 80.0 informati 2017 5:55 leukocyte on in AM s in source Blood by data Automated count Hematocri 42.0 - % Low No May 02 t [Volume 52.0 informati 2016 5:55 on in AM Fraction] source of Blood data Hemoglobi 14.1 - g/dL Low No May 02 n 18.0 informati 2016 5:55 [Mass/vol on in AM ume] in source Blood data Lymphocyt 0.7 - 4.5 K/mm3 Normal No May 02 es informati 2016 5:55 [#/volume on in AM ] in source Unspecifi data ed specimen by Automated count Lymphocyt 10 - 50 % Normal No May 02 es informati 2016 5:55 [#/volume on in AM ] in source Unspecifi data ed specimen by Automated count Erythrocy 27 - 31.2 pg Normal No May 02 te mean informati 2016 5:55 corpuscul on in AM ar source hemoglobi data n [Entitic mass] Erythrocy 31.8 - g/dl Normal No May 02 te mean 35.4 informati 2016 5:55 corpuscul on in AM ar source hemoglobi data n concentra tion [Mass/vol ume] by Automated count Erythrocy 82.2 - fl Normal No Apr 12 te mean 97.8 informati 2016 5:55 corpuscul on in AM ar volume source [Entitic data volume] by Automated count Monocytes 0.1 - 1.0 K/mm3 High No May 02 informati 2016 5:55 [#/volume on in AM ] in source Blood by data Automated count Monocytes 1.7 - 9.3 % Normal No May 02 /100 informati 2017 5:55 leukocyte on in AM s in source Blood by data Automated count Platelet 7.4 - fl Normal No May 02 mean 10.4 informati 2016 5:55 volume on in AM [Entitic source volume] data in Blood by Automated count Platelets 142 - 424 K/mm3 Normal No May 02 informati 2016 5:55 [#/volume on in AM ] in source Blood data Erythrocy 4.6 - 6.2 M/mm3 Low No May 02 presley informati 2016 5:55 [#/volume on in AM ] in source Amniotic data fluid Erythrocy 11.5 - % Normal May 02 te 17.5 informati 2016 5:55 distribut on in AM ion width source [Entitic data volume] by Automated count Leukocyte 4.8 - K/MM3 High No May 02 s 10.8 informati 2016 5:55 [#/volume on in AM ] in source Blood data Basic metabolic panel in Blood Observa Value Referen Units Interpr Notes Date tion ce etation Range Urea 7 - 18 mg/dL High May 01 nitrogen informati 2016 5:55 [Mass/vol on in AM ume] in source Serum or data Plasma Calcium 8.5 - mg/dL Low No May 01 [Mass/vol 10.1 informati 2016 5:55 ume] in on in AM Serum or source Plasma data Chloride 98 - 107 mmoL/L Normal May 01 [Moles/vo informati 2016 5:55 lume] in on in AM Serum or source Plasma data Carbon 21.0 - mmoL/L Normal No May 01 dioxide, 32.0 informati 2016 5:55 total on in AM [Moles/vo source lume] in data Serum or Plasma Creatinin 0.70 - mg/dL Normal No May 01 e 1.30 informati 2016 5:55 [Mass/vol on in AM ume] in source Serum or data Plasma Creatinin 50 - 200 ML/MIN Normal No May 01 e renal informati 2016 5:55 clearance on in AM source predicted data by Cockcroft -Gault formula Estimated >60 ML/MIN No REFERENCE May 01 informati RANGE: 2017 5:55 glomerula on in >60 AM r source ML/MIN/1. filtratio data 73 SQUARE n rate METERSIf (GF this patient is -A merican, then multiply theresult by 1.210. Glucose 74 - 106 mg/dL High No May 01 [Mass/vol informati 2016 5:55 ume] in on in AM Serum or source Plasma data Potassium 3.5 - 5.1 mmoL/L Low alert May 01 2016 5:55 [Moles/vo CRITICAL AM lume] in RESULTS Serum or Plasma RESU LTS CALLED TO: Margoth ALFREDO RN 05/01/17 0615 [place] Sodium 136 - 145 mmoL/L Normal No May 01 [Moles/vo informati 2016 5:55 lume] in on in AM Serum or source Plasma data CBC W Auto Differential panel in Blood Observa Value Referen Units Interpr Notes Date tion ce etation Range Basophils 0 - 0.2 K/MM3 Normal No May 01 informati 2016 5:55 [#/volume on in AM ] in source Blood by data Automated count Basophils 0.1 - 2.0 % Normal No May 01 informati 2016 5:55 leukocyte on in AM s in source Blood by data Automated count Eosinophi 0.0 - 0.4 K/mm3 Normal No May 01 ls informati 2016 5:55 [#/volume on in AM ] in source Blood by data Automated count Eosinophi 0.1 - % Normal No May 01 12.0 informati 2016 5:55 leukocyte on in AM s in source Blood by data Automated count Granulocy 1.3 - 8.0 K/mm3 Normal No May 01 presley informati 2016 5:55 [#/volume on in AM ] in source Blood by data Automated count Granulocy 37.0 - % Normal No May 01 80.0 informati 2016 5:55 leukocyte on in AM s in source Blood by data Automated count Hematocri 42.0 - % Low No May 01 t [Volume 52.0 informati 2016 5:55 on in AM Fraction] source of Blood data Hemoglobi 14.1 - g/dL Low No May 01 n 18.0 informati 2016 5:55 [Mass/vol on in AM ume] in source Blood data Lymphocyt 0.7 - 4.5 K/mm3 Normal No May 01 es informati 2016 5:55 [#/volume on in AM ] in source Unspecifi data ed specimen by Automated count Lymphocyt 10 - 50 % Normal No May 01 es informati 2016 5:55 [#/volume on in AM ] in source Unspecifi data ed specimen by Automated count Erythrocy 27 - 31.2 pg Normal No May 01 te mean informati 2016 5:55 corpuscul on in AM ar source hemoglobi data n [Entitic mass] Erythrocy 31.8 - g/dl Normal No May 01 te mean 35.4 informati 2016 5:55 corpuscul on in AM ar source hemoglobi data n concentra tion [Mass/vol ume] by Automated count Erythrocy 82.2 - fl Normal No May 01 te mean 97.8 informati 2017 5:55 corpuscul on in AM ar volume source [Entitic data volume] by Automated count Monocytes 0.1 - 1.0 K/mm3 Normal No May 01 informati 2016 5:55 [#/volume on in AM ] in source Blood by data Automated count Monocytes 1.7 - 9.3 % Normal No May 01 /100 informati 2017 5:55 leukocyte on in AM s in source Blood by data Automated count Platelet 7.4 - fl Normal No May 01 mean 10.4 informati 2017 5:55 volume on in AM [Entitic source volume] data in Blood by Automated count Platelets 142 - 424 K/mm3 Normal No May 01 informati 2017 5:55 [#/volume on in AM ] in source Blood data Erythrocy 4.6 - 6.2 M/mm3 Low No May 01 presley informati 2017 5:55 [#/volume on in AM ] in source Amniotic data fluid Erythrocy 11.5 - % Normal No May 01 te 17.5 informati 2016 5:55 distribut on in AM ion width source [Entitic data volume] by Automated count Leukocyte 4.8 - K/MM3 Normal No May 01 s 10.8 informati 2016 5:55 [#/volume on in AM ] in source Blood data Activated clotting time in Blood by Coagulation assay Observa Value Referen Units Interpr Notes Date tion ce etation Range Activated 74 - 125 SEC High No Apr 30 clotting alert 2016 time in on in 12:24 PM Blood by source Coagulati data on assay Magnesium [Moles/volume] in Unspecified specimen Observa Value Referen Units Interpr Notes Date tion ce etation Range Magnesium 1.4 - 2.2 mg/dL Normal No Apr 30 informati 2016 6:20 [Moles/vo on in AM lume] in source Unspecifi data ed specimen CBC W Auto Differential panel in Blood Observa Value Referen Units Interpr Notes Date tion ce etation Range Basophils 0 - 0.2 K/MM3 Normal Apr 30 inform2016 6:20 [#/volume on in AM ] in source Blood by data Automated count Basophils 0.1 - 2.0 % Normal No Apr 30 informati 2016 6:20 leukocyte on in AM s in source Blood by data Automated count Eosinophi 0.0 - 0.4 K/mm3 Normal No Apr 30 ls informati 2016 6:20 [#/volume on in AM ] in source Blood by data Automated count Eosinophi 0.1 - % Normal No Apr 30 ls/100 12.0 informati 2016 6:20 leukocyte on in AM s in source Blood by data Automated count Granulocy 1.3 - 8.0 K/mm3 Normal No Apr 30 presley informati 2016 6:20 [#/volume on in AM ] in source Blood by data Automated count Granulocy 37.0 - % Normal No Apr 30 presley/100 80.0 informati 2016 6:20 leukocyte on in AM s in source Blood by data Automated count Hematocri 42.0 - % Normal No Apr 30 t [Volume 52.0 informati 2016 6:20 on in AM Fraction] source of Blood data Hemoglobi 14.1 - g/dL Normal Apr 30 n 18.0 informati 2016 6:20 [Mass/vol on in AM ume] in source Blood data Lymphocyt 0.7 - 4.5 K/mm3 Normal No Apr 30 es informati 2016 6:20 [#/volume on in AM ] in source Unspecifi data ed specimen by Automated count Lymphocyt 10 - 50 % Normal No Apr 30 es informati 2016 6:20 [#/volume on in AM ] in source Unspecifi data ed specimen by Automated count Erythrocy 27 - 31.2 pg Normal No Apr 30 te mean informati 2016 6:20 corpuscul on in AM ar source hemoglobi data n [Entitic mass] Erythrocy 31.8 - g/dl Normal No Apr 30 te mean 35.4 informati 2016 6:20 corpuscul on in AM ar source hemoglobi data n concentra tion [Mass/vol ume] by Automated count Erythrocy 82.2 - fl Normal No Apr 30 te mean 97.8 informati 2016 6:20 corpuscul on in AM ar volume source [Entitic data volume] by Automated count Monocytes 0.1 - 1.0 K/mm3 Normal No Apr 30 informati 2016 6:20 [#/volume on in AM ] in source Blood by data Automated count Monocytes 1.7 - 9.3 % Normal No Apr 30 /100 informati 2016 6:20 leukocyte on in AM s in source Blood by data Automated count Platelet 7.4 - fl Normal No Apr 30 mean 10.4 informati 2017 6:20 volume on in AM [Entitic source volume] data in Blood by Automated count Platelets 142 - 424 K/mm3 Normal No Apr 30 informati 2016 6:20 [#/volume on in AM ] in source Blood data Erythrocy 4.6 - 6.2 M/mm3 Normal No Apr 30 presley informati 2016 6:20 [#/volume on in AM ] in source Amniotic data fluid Erythrocy 11.5 - % Normal No Apr 30 te 17.5 informati 2016 6:20 distribut on in AM ion width source [Entitic data volume] by Automated count Leukocyte 4.8 - K/MM3 Normal No Apr 30 s 10.8 informati 2016 6:20 [#/volume on in AM ] in source Blood data Comprehensive metabolic 2000 panel in Serum or Plasma Observa Value Referen Units Interpr Notes Date tion ce etation Range Albumin/G 1.1 - 1.8 No Low No Apr 30 lobulin informati informati 2016 6:20 [Mass on in on in AM ratio] in source source Serum or data data Plasma Albumin 3.4 - 5.0 gm/dL Low No Apr 30 [Mass/vol informati 2017 6:20 ume] in on in AM Serum or source Plasma data Alkaline 46 - 116 U/L High No Apr 30 phosphata informati 2016 6:20 se on in AM [Enzymati source c data activity/ volume] in Serum or Plasma Bilirubin 0.2 - 1.0 mg/dL Normal No Apr 30 .total informati 2016 6:20 [Mass/vol on in AM ume] in source Serum or data Plasma Urea 7 - 18 mg/dL High No Apr 30 nitrogen informati 2016 6:20 [Mass/vol on in AM ume] in source Serum or data Plasma Calcium 8.5 - mg/dL Normal No Apr 30 [Mass/vol 10.1 informati 2016 6:20 ume] in on in AM Serum or source Plasma data Chloride 98 - 107 mmoL/L Low No Apr 30 [Moles/vo informati 2016 6:20 lume] in on in AM Serum or source Plasma data Carbon 21.0 - mmoL/L Normal No Apr 30 dioxide, 32.0 informati 2017 6:20 total on in AM [Moles/vo source lume] in data Serum or Plasma Creatinin 0.70 - mg/dL High No Apr 30 e 1.30 informati 2016 6:20 [Mass/vol on in AM ume] in source Serum or data Plasma Creatinin 50 - 200 ML/MIN Normal No Apr 30 e renal informati 2016 6:20 clearance on in AM source predicted data by Cockcroft -Gault formula Estimated >60 ML/MIN No REFERENCE Apr 30 informati RANGE: 2017 6:20 glomerula on in >60 AM r source ML/MIN/1. filtratio data 73 SQUARE n rate METERSIf (GF this patient is -A merican, then multiply theresult by 1.210. Globulin 1.3 - 3.2 gm/dL High No Apr 30 [Mass/vol informati 2016 6:20 ume] in on in AM Serum source data Glucose 74 - 106 mg/dL High No Apr 30 [Mass/vol informati 2016 6:20 ume] in on in AM Serum or source Plasma data Potassium 3.5 - 5.1 mmoL/L Low alert Apr 30 2017 6:20 [Moles/vo CRITICAL AM lume] in RESULTS Serum or Plasma RESU LTS CALLED TO: EDG 04/30/17 0704 Jacques Bradley ardMAY BE ELEVATED DUE TO SLIGHT HEMOLYSIS Sodium 136 - 145 mmoL/L Normal No Apr 30 [Moles/vo informati 2016 6:20 lume] in on in AM Serum or source Plasma data Aspartate 15 - 37 U/L No MAY BE Apr 30 informati ELEVATED 2016 6:20 aminotran on in DUE TO AM sferase source SLIGHT [Enzymati data HEMOLYSIS c activity/ volume] in Serum or Plasma Alanine 12 - 78 U/L No No Apr 30 aminotran informati informati 2017 6:20 sferase on in on in AM [Enzymati source source c data data activity/ volume] in Serum or Plasma Protein 6.4 - 8.2 gm/dL Normal No Apr 30 [Mass/vol informati 2017 6:20 ume] in on in AM Serum or source Plasma data Troponin I.cardiac [Mass/volume] in Serum or Plasma Observa Value Referen Units Interpr Notes Date tion ce etation Range Troponin 0.00 - ng/mL High 0.04 - Apr 30 I.cardiac 0.06 0.49 IS 2017 1:20 AN AM [Mass/vol INDETERMI ume] in NANT Serum or ZONEAnd Plasma can be consisten t with the following diseases: Trauma Criticall y ill patients [place] >30% TBSACHF Hypothyro idism Amyloidos isHyperte nsion Myocardit is SepsisHyp otension Rhabdomyo lysis Vital exhaust.P ostop surgery Pulmonary embolism CVARenal failure Acute neurologi aruna disease Atrial fib. Troponin I.cardiac [Mass/volume] in Serum or Plasma Observa Value Referen Units Interpr Notes Date tion ce etation Range COMMENTS TO HIDE COOKING OPERATOR: Q6 X [address] TOP DR ZAZUETA Troponin 0.00 - ng/mL High 0.04 - Apr 29 I.cardiac 0.06 0.49 IS 2016 7:00 AN PM [Mass/vol INDETERMI ume] in NANT Serum or ZONEAnd Plasma can be consisten t with the following diseases: Trauma Criticall y ill patients [place] >30% TBSACHF Hypothyro idism Amyloidos isHyperte nsion Myocardit is SepsisHyp otension Rhabdomyo lysis Vital exhaust.P ostop surgery Pulmonary embolism CVARenal failure Acute neurologi aruna disease Atrial fib. Cortisol [Mass/volume] in Serum or Plasma Observa Value Referen Units Interpr Notes Date tion ce etation Range Cortisol . ug/dL No Cortisol Apr 29 [Mass/vol informati AM 2016 ume] in on in 6.2 - 12:45 PM Serum or source 19.4Corti Plasma data robby PM 2.3 - 11.9Perfo rmed at: [facility] [place] [id number] [address] [place], [place] [id number] [employer]: Jarrod Chaves PhD, Phone: [phone] Natriutietic peptide B [Mass/volume] in Serum or Plasma Observa Value Referen Units Interpr Notes Date tion ce etation Range Natriutie 0 - 100 pg/mL High No Apr 29 tic informati 2016 peptide B on in 12:45 PM source [Mass/vol data ume] in Serum or Plasma Comprehensive metabolic 2000 panel in Serum or Plasma Observa Value Referen Units Interpr Notes Date tion ce etation Range Albumin/G 1.1 - 1.8 No Low No Apr 29 lobulin informati informati 2016 [Mass on in on in 12:45 PM ratio] in source source Serum or data data Plasma Albumin 3.4 - 5.0 gm/dL Normal No Apr 29 [Mass/vol informati 2016 ume] in on in 12:45 PM Serum or source Plasma data Alkaline 46 - 116 U/L High No Apr 29 phosphata informati 2016 se on in 12:45 PM [Enzymati source c data activity/ volume] in Serum or Plasma Bilirubin 0.2 - 1.0 mg/dL Normal No Apr 29 .total informati 2016 [Mass/vol on in 12:45 PM ume] in source Serum or data Plasma Urea 7 - 18 mg/dL High No Apr 29 nitrogen informati 2016 [Mass/vol on in 12:45 PM ume] in source Serum or data Plasma Calcium 8.5 - mg/dL Normal No Apr 29 [Mass/vol 10.1 informati 2016 ume] in on in 12:45 PM Serum or source Plasma data Chloride 98 - 107 mmoL/L Low No Apr 29 [Moles/vo informati 2016 lume] in on in 12:45 PM Serum or source Plasma data Carbon 21.0 - mmoL/L Normal No Apr 29 dioxide, 32.0 informati 2017 total on in 12:45 PM [Moles/vo source lume] in data Serum or Plasma Creatinin 0.70 - mg/dL High No Apr 29 e 1.30 informati 2017 [Mass/vol on in 12:45 PM ume] in source Serum or data Plasma Creatinin 50 - 200 ML/MIN Normal No Apr 29 e renal informati 2017 clearance on in 12:45 PM source predicted data by Cockcroft -Gault formula Estimated >60 ML/MIN No REFERENCE Apr 29 informati RANGE: 2017 glomerula on in >60 12:45 PM r source ML/MIN/1. filtratio data 73 SQUARE n rate METERSIf (GF this patient is -A merican, then multiply theresult by 1.210. Globulin 1.3 - 3.2 gm/dL High No Apr 29 [Mass/vol informati 2017 ume] in on in 12:45 PM Serum source data Glucose 74 - 106 mg/dL High Apr 29 [Mass/vol informati 2016 ume] in on in 12:45 PM Serum or source Plasma data Potassium 3.5 - 5.1 mmoL/L Low alert Apr 29 2016 [Moles/vo CRITICAL 12:45 PM lume] in RESULTS Serum or Plasma RESU LTS CALLED TO: TERRA 04/29/17 1330 [place] Sodium 136 - 145 mmoL/L Normal No Apr 29 [Moles/vo informati 2017 lume] in on in 12:45 PM Serum or source Plasma data Aspartate 15 - 37 U/L Normal No Apr 292016 aminotran on in 12:45 PM sferase source [Enzymati data c activity/ volume] in Serum or Plasma Alanine 12 - 78 U/L Normal No Apr 29 aminotran informati 2016 sferase on in 12:45 PM [Enzymati source c data activity/ volume] in Serum or Plasma Protein 6.4 - 8.2 gm/dL Normal No Apr 29 [Mass/vol informati 2017 ume] in on in 12:45 PM Serum or source Plasma data Lipase [Enzymatic activity/volume] in Serum or Plasma Observa Value Referen Units Interpr Notes Date tion ce etation Range Lipase 73 - 393 U/L Normal No Apr 29 [Enzymati 2016 c on in 12:45 PM activity/ source volume] data in Serum or Plasma THYROID PANEL 2 Observa Value Referen Units Interpr Notes etation Range Thyroxine 5.93 - ug/dl Normal No Apr 29 (T4) 13.13 2016 free on in 12:45 PM index in source Serum or data Plasma Triiodoth 31 - 39 % Normal No Apr 29 yronine 2016 (T3) on in 12:45 PM resin source uptake in data Serum or Plasma Thyroxine 4.7 - ug/dl Normal No Apr 29 (T4) 13.3 2016 [Mass/vol on in 12:45 PM ume] in source Serum or data Plasma Thyrotrop 0.358 - uIU/ml Low No Apr 29 in 3.740 2016 [Units/vo on in 12:45 PM lume] in source Serum or data Plasma Troponin I.cardiac [Mass/volume] in Serum or Plasma Observa Value Referen Units Interpr Notes etation Range Troponin 0.00 - ng/mL High 0.04 - Apr 29 I.cardiac 0.06 0.49 IS 2017 AN 12:45 PM [Mass/vol INDETERMI ume] in NANT Serum or ZONEAnd Plasma can be consisten t with the following diseases: Trauma Criticall y ill patients [place] >30% TBSACHF Hypothyro idism Amyloidos isHyperte nsion Myocardit is SepsisHyp otension Rhabdomyo lysis Vital exhaust.P ostop surgery Pulmonary embolism CVARenal failure Acute neurologi aruna disease Atrial fib. CBC W Auto Differential panel in Blood Observa Value Referen Units Interpr Notes etation Range Basophils 0 - 0.2 K/MM3 Normal No Apr 292016 [#/volume on in 12:45 PM ] in source Blood by data Automated count Basophils 0.1 - 2.0 % Normal No Apr 29 /100 2016 leukocyte on in 12:45 PM s in source Blood by data Automated count Eosinophi 0.0 - 0.4 K/mm3 Normal No Apr 29 ls 2016 [#/volume on in 12:45 PM ] in source Blood by data Automated count Eosinophi 0.1 - % Normal No Apr 29 ls/100 12.0 2016 leukocyte on in 12:45 PM s in source Blood by data Automated count Granulocy 1.3 - 8.0 K/mm3 Normal No Apr 9 presley 2016 [#/volume on in 12:45 PM ] in source Blood by data Automated count Granulocy 37.0 - % Normal No Apr 29 presley/100 80.0 2016 leukocyte on in 12:45 PM s in source Blood by data Automated count Hematocri 42.0 - % Normal No Apr 29 t [Volume 52.0 2016 on in 12:45 PM Fraction] source of Blood data Hemoglobi 14.1 - g/dL No Apr 29 n 18.0 informati inform2016 [Mass/vol on in on in 12:45 PM ume] in source source Blood data data Lymphocyt 0.7 - 4.5 K/mm3 High No Apr 29 es 2016 [#/volume on in 12:45 PM ] in source Unspecifi data ed specimen by Automated count Lymphocyt 10 - 50 % Normal No Apr 29 es 2016 [#/volume on in 12:45 PM ] in source Unspecifi data ed specimen by Automated count Erythrocy 27 - 31.2 pg Normal No Apr 29 te mean 2016 corpuscul on in 12:45 PM ar source hemoglobi data n [Entitic mass] Erythrocy 31.8 - g/dl Normal No Apr 29 te mean 35.4 2016 corpuscul on in 12:45 PM ar source hemoglobi data n concentra tion [Mass/vol ume] by Automated count Erythrocy 82.2 - fl Normal No Apr 29 te mean 97.8 2016 corpuscul on in 12:45 PM ar volume source [Entitic data volume] by Automated count Monocytes 0.1 - 1.0 K/mm3 Normal No Apr 292016 [#/volume on in 12:45 PM ] in source Blood by data Automated count Monocytes 1.7 - 9.3 % Normal No Apr 29 /100 2016 leukocyte on in 12:45 PM s in source Blood by data Automated count Platelet 7.4 - fl Normal No Apr 29 mean 10.4 2016 volume on in 12:45 PM [Entitic source volume] data in Blood by Automated count Platelets 142 - 424 K/mm3 No No Apr 29 informati 2016 [#/volume on in on in 12:45 PM ] in source source Blood data data Erythrocy 4.6 - 6.2 M/mm3 Normal No Apr 29 presley 2016 [#/volume on in 12:45 PM ] in source Amniotic data fluid Erythrocy 11.5 - % Normal No Apr 29 te 17.5 2016 distribut on in 12:45 PM ion width source [Entitic data volume] by Automated count Leukocyte 4.8 - K/MM3 High No Apr 29 s 10.8 inform2016 [#/volume on in 12:45 PM ] in source Blood data CBC W Auto Differential panel in [...] K/mm3 High No Apr 19 presley informati 2016 5:00 [...] Date tion ce etation Range COMMENTS TO HIDE COOKING OPERATOR: PLEASE RE RUN AT 1400 AND REPORT [...] No No Apr 18 ial informa informa 2017 cells.s tion in tion in 9:25 AM [...] Normal No Apr 18 Urine informati informati 2017 9:25 on in on in AM source source data data Protein NEG mg/dL No No Apr 18 [Mass/vol informati informati 2017 9:25 ume] in on in on in AM Urine by source source Automated data data test strip Specific 1.005 - No Normal No Apr 18 gravity 1.030 informati informati 2017 9:25 of Urine on in on in AM source source data data Urobili 0.2 NEG E.U./dL No No Apr 18 nogen informa informa 2017 [Presen tion in tion in 9:25 AM [...] Normal No Apr 18 [Mass/vol 10.1 informati 2017 8:46 ume] in on in [...] - 2.0 % Normal No Apr 18 /100 informati [...] - 1.0 K/mm3 Normal No Mar 25 inform2016 6:45 [#/volume on in AM ] in source Blood by data Automated count Monocytes 1.7 - 9.3 % Normal No Mar 25 informati 2016 6:45 leukocyte on in AM s in source Blood by data Automated count Platelet 7.4 - fl Normal No Mar 25 mean 10.4 informati 2016 6:45 volume on in AM [Entitic source volume] data in Blood by Automated count Platelets 142 - 424 K/mm3 Normal No Mar 25 inform2016 6:45 [#/volume on in AM ] in [...] Creatine 0 - 4.0 U/L Normal No Oct 5 kinase.MB informati 2017 6:45 /Creatine on in AM source kinase.to data guillaume [Ratio] in Serum or Plasma Creatine 0.0 - 3.6 ng/mL Normal No Mar 5 kinase.MB informati 2017 6:45 on in AM [...] Low No Oct 5 lobulin informati informati 2017 6:45 [Mass on in on in AM ratio] in source source Serum or data data Plasma Albumin 3.4 - 5.0 gm/dL Low No Mar 5 [Mass/vol informati 2017 6:45 ume] in on in AM Serum or source Plasma data Alkaline 46 - 116 U/L High No Mar 5 phosphata informati 2017 6:45 se on in AM [Enzymati source c data activity/ volume] in Serum or Plasma Bilirubin 0.2 - 1.0 mg/dL Normal No Mar 5 .total informati 2017 6:45 [Mass/vol on in AM ume] in source Serum or data Plasma Urea 7 - 18 mg/dL High No Mar 5 nitrogen informati 2017 6:45 [Mass/vol on [...] ML/MIN No REFERENCE Mar 25 informati RANGE: 2017 6:45 glomerula on in [...] - 37 U/L Normal No Mar 25 informati 2016 6:45 aminotran on in AM sferase source [Enzymati data c activity/ volume] in Serum or Plasma Alanine 12 - 78 U/L Low No Mar 5 aminotran informati 2016 6:45 sferase on [...] 2.0 % Normal No Feb 11 informati 2017 4:10 leukocyte on in PM [...] Automated count Erythrocy 82.2 - fl Normal Feb 11 te mean 97.8 informati 2016 4:10 corpuscul on in PM ar volume source [Entitic data volume] by Automated count Monocytes 0.1 - 1.0 K/mm3 Normal No Feb 11 informati 2016 4:10 [#/volume on in PM ] in source Blood by data Automated count Monocytes 1.7 - 9.3 % Normal No Aug 24 /100 informati 2017 4:10 leukocyte on in [...] CALLED TO: ASIM ReynoldsHillary 12/28/16 0914 O'Steffanie Candelarialyjulio Sodium 136 - 145 mmoL/L Normal No [...] High No Nov 12 te mean informati 2017 1:59 corpuscul [...]
--- OUTSIDE RECORDS SUMMARY | 2017-05-04 07:59 | External Medical Summary Rpt ---
[...] Date tion ce etation Range COMMENTS TO DIRECTOR OF DIGITAL PLATFORMS: Q6 X 3 REPORT ABNORMAL LAB TOP [...] robby PM 2.3 - 11.9Perfo rmed at: [facility] [place] [id number] [address] [place], [place] [id number] Float Builder: Jarrod Chaves PhD, Phone: [phone] Natriutietic peptide B [Mass/volume] in Serum [...] Date tion ce etation Range COMMENTS TO DIRECTOR OF DIGITAL PLATFORMS: PLEASE RE RUN AT 1400 AND REPORT [...]
[2017-05-04 08:26] LABS: HEMOGLOBIN 11.8 g/dL (14.1-18.0); LYMPH % 21.7 % (10-50)
--- NOTE | 2017-05-04 09:16 | RADIOLOGY REPORT PS360 ---
CT ABD PELVIS W/O CONTRAST CLINICAL INDICATION: Flank pain, abdominal pain LOW BACK PAIN ORDERING PHYSICIAN: Karolyn Frausto MD PATIENT AGE: 76 years COMPARISON: None TECHNIQUE: Axial images obtained with sagittal and coronal reformats. PROCEDURE: Oral Contrast: None IV Contrast: None . FINDINGS: The lung bases are clear. Liver, spleen, adrenal glands, and gallbladder have an unremarkable unenhanced CT appearance. There is mild fatty infiltration of the pancreas with no acute pancreatic abnormality apparent. No hydronephrosis. No renal calculi or ureteral calculi. No perinephric hematoma. There are some minimal stranding of perinephric renal fat which is nonspecific. Unremarkable appendix. No evidence of intestinal obstruction or free air. There is diverticulosis of the sigmoid colon but no evidence of diverticulitis. There is some minimal thickening and presacral fat which is nonspecific. There is a small umbilical hernia containing fat. No acute bony anomalies. IMPRESSION: No acute finding Diverticulosis without diverticulitis. Small umbilical hernia containing fat
--- NOTE | 2017-05-04 09:38 | RADIOLOGY REPORT PS360 ---
CT LUMBAR SPINE W/O CONTRAST CLINICAL INDICATION: LOW BACK PAIN, recent injury with pain ORDERING PHYSICIAN: Karolyn Frausto MD PATIENT AGE: 76 years COMPARISON: 04/18/2017 TECHNIQUE:Axial, sagittal, and coronal images are generated and reviewed without contrast FINDINGS: No acute fracture or dislocation is evident. There is continued severe degenerative disc disease at L4-L5. Endplate irregularity is once again noted with decrease in the disc space and a small amount gas within the disc space. There is minimal anterolisthesis of L4 on L5. This is not significantly changed. The endplate irregularity may be slightly worse.. There is some mild prominence of the paravertebral soft tissues at this region. Discitis is a consideration especially in this patient with reported elevated sedimentation rate. Prominent concentric bulging disc with facet and ligamentum hypertrophy with canal stenosis is noted. MRI lumbar spine without and with contrast may be of further value if clinical findings are indeterminate. There is severe degenerative disc disease also at L5-S1 with bulging disc and mild facet and ligamentum flavum hypertrophy with bilateral foraminal narrowing. IMPRESSION: 1. Disc space narrowing with endplate irregularity at L4-L5 as previously described with mild prominence of the paravertebral soft tissues. This could be due to spondylodiscitis. Please correlate clinically. Prominent bulging disc with canal stenosis is present at this level. 2. Degenerative disc disease L5-S1.
--- NOTE | 2017-05-04 09:51 | Emergency Room Report ---
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 N Clinical Suspician of Infection? N Mental Status: 1 - Regular (Normal Baseline) Sepsis Risk:Low Sepsis Risk Have you (or family members/close friends) recently traveled outside the [place]? N If Yes, where/when: Have you had exposure to infectious disease within the past month? N TB? Other? 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 He was admitted because of back pain in March and abnormal CT scan his CRP was 9.5. I admitted him last week because of abnormal electrocardiogram and positive troponin and he underwent for cardiac stents. The patient presented today with exacerbation of his lower back pain mostly over the LEFT buttock region. It is worse with movement. Dr. Frausto seen emergently and evaluated him. He ordered a CT scan of the abdomen and pelvis which showed no acute findings. His sedimentation rate 98 and CRP 6.5 . Please see my discharge plan. Source patient, RN notes reviewed, [place] records, old records Exam Limitations no limitations ALLERGIES Coded Allergies: Sulfa (Sulfonamide Antibiotics) (04/29/17) Home Medications Active Scripts Atorvastatin Calcium (Lipitor 40MG) 40 MG PO QHS #30 TAB Ref 3 Prov: 05/02/17 Carvedilol (Carvedilol 6.25MG) 12.5 MG PO BID #60 TAB Ref 2 Prov: 05/02/17 Ticagrelor (Brilinta) 90 MG PO BID #60 TAB Ref 2 Prov: 05/02/17 Potassium Chloride (Klor-Con M20) 40 MEQ PO BID #60 TER Ref 2 Prov: 05/02/17 Acetaminophen (Tylenol) 650 MG PO Q4HP PRN fever or mild pain #60 TAB Ref 1 Prov: 05/02/17 Discontinued Scripts ACETAMINOPHEN WITH CODEINE (Tylenol With Codeine #3 Tablet) 1-2 TAB PO Q6HP PRN BREAKTHROUGH MOD TO SEV PAIN #20 TAB Prov: 04/19/17 DC: 05/02/17 0837 Reported Medications Aspirin (Aspirin EC 81MG Tab) 81 MG PO DAILY LEVOTHYROXINE SOD (Synthroid) 0.1 MG PO DAILY Furosemide (Furosemide) 80 MG PO DAILY Multivit-Min/FA/Lycopen/Lutein (Centrum Silver Men Tablet) 1 EACH PO DAILY CARBIDOPA 25/LEVODOPA 100 (Carbidopa-Levodopa 25-100 Tab) 1 TABLET PO TID Prednisone (Prednisone 20MG) 20 MG PO DAILY #90 TAB Metolazone (Metolazone 2.5MG) 2.5 MG PO DAILY Meclizine Hcl (Meclizine Hydrochloride) 25 MG PO TIDP PRN DIZZINESS Discontinued Reported Medications Atorvastatin Calcium 10 MG PO QHS POTASSIUM CHL (Potassium Chloride) 20 MEQ PO BID Carvedilol 6.25 MG PO BID #180 TAB DC: 05/02/17 0837 History Medical History General CAD? Yes Angina: No AK: No Hypertension? Yes Hyperlipidemia? Yes CHF? No DVT? No PE? No COPD? No Asthma? No Anemia? Yes GERD? No Gastric ulcers? No GI Bleed? No Hernia? No Thyroid Problems? Yes Hypothyroidism? Yes CVA? Yes Seizures? No Diabetes? No Insulin Dependent: No Insulin Pump: No Home FSBS? No Renal Insuffiency? No End Stage Renal Disease? No UTI? No Stones? No BPH? No GB Disease: No Nephritic Syndrome? No Asplenia? No Hepatitis? No Sickle Cell Disease? No Arthritis? No Migraines? No Cataracts? No Glaucoma? No MRSA? No HIV? No TB? No Anxiety? No Depression? No Cancer? No More? 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 Respiratory no symptoms reported Cardiovascular no symptoms reported Gastrointestinal no symptoms reported Genitourinary no symptoms reported. Musculoskeletal back pain (LEFT gluteal pain) Skin no symptoms reported Psychiatric/Neurological no symptoms reported Physical Exam Vital Signs Vital Signs Date Time Temp Pulse Resp B/P Pulse O2 O2 Flow FiO2 Ox Delivery Rate 05/04 1028 83 18 118/66 96 05/04 0959 18 05/04 0708 98.4 82 18 131/81 96 - WBC >12,000 or <4,000 or 10% bands? 2 or more SIRS Criteria Met? B/P:131/81 MAP:97 Creatinine >2.0? UA output<0.5ml/kg/hr for 2 hrs? Platelet count >100,000? Lactate >2.0mmol/1? INR >1.2 or PTT > than 60 sec? Evidence of Organ Dysfunction? Provider documented clinical suspician of infection? N Sepsis Criteria Count: 0 Sepsis Risk: Low Sepsis Risk General Appearance normal appearance, WD/WN Eye Exam - bilateral eye normal exam, bilateral eye PERRL, bilateral eye EOMI Ear, Nose, Throat hearing grossly normal, normal ENT inspection Neck normal inspection, non-tender, supple, full range of motion Respiratory Status Yes: trachea midline, chest symmetrical, non tender chest. No: respiratory distress. Lung Sounds bilateral: normal breath sounds, lungs clear. Cardiovascular normal exam, regular rate/rhythm, no peripheral edema, no gallop, no JVD, no murmur, no rub, normal peripheral pulses Peripheral Pulses Pulses normal Yes Gastrointestinal normal bowel sounds, normal exam, non tender, soft, no organomegaly Back vertebral tenderness, the patient does have mild tenderness over thethe lower lumbar spine, area of maximum tenderness over the LEFT gluteal region. Extremities non-tender, normal range of motion, normal inspection, dorsalis pedis pulsations were one plus equal symmetric. Venous stasis has improved with trace edema bilaterally. Mild erythema over the anterior aspect of the LEFT leg. Strength 5 Lower Ext (L), 5 Lower Ext (R) Neurologic alert, documentation liaison II-XII nml as tested, normal exam, oriented x 3 Reflexes Reflexes normal Yes Mental status normal mood/affect Skin intact, rash, mild erythema over the LEFT, trace edema. No discharge. Lymphatic no adenopathy Medical Decision Making LABS/Meds/Orders Pt receiving controlled substance in ED? No Results/Orders Laboratory Tests 05/04/17 0815: Sodium 139, Potassium 2.6 *L, Chloride 99, Carbon Dioxide 31, BUN 24 H, Creatinine 1.6 H, Estimated Creat Clear 55, Estimated GFR (MDRD) 42, Glucose 99 , Calcium 8.2 L, Total Bilirubin 0.4, AST 26, ALT 12, Alkaline Phosphatase 167 H, Total Protein 6.4, Albumin 2.9 L, Globulin 3.5 H, Albumin/Globulin Ratio 0.8 L, WBC 13.8 H, RBC 3.93 L, Hgb 11.8 L, Hct 35.0 L, MCV 88.9, RDW 15.0, Plt Count 311, MPV 7.7, Gran % 69.4, Gran # 9.6 H, Lymphocytes % 21.7, Monocytes % 7.6, Eosinophils % 1.0, Basophils % 0.3, Lymphocytes # 3.0, Monocytes # 1.1 H, Eosinophils # 0.1, Basophils # 0.0, PUBS MCHC 33.7, ESR 98 H, MCH 30.0 Current Medication Orders Sig/Bennett Start time Last Medication Dose Route Stop Time Status Admin Acetaminophen/ 1 EACH ONCE ONE 05/04 1000 DC 05/04 Codeine Phosphate PO 05/04 1001 0959 Levofloxacin/Dextrose 150 ML ONCE ONE 05/04 1000 r 05/04 IV 05/04 1129 1004 Levofloxacin/Dextrose 150 ML .STK-MED ONE 05/04 0956 DC IV Acetaminophen/ 0 .STK-MED ONE 05/04 0951 DC Codeine Phosphate PO Levofloxacin 0 .STK-MED ONE 05/04 0951 DC .ROUTE Potassium Chloride 0 .STK-MED ONE 05/04 0948 DC PO Potassium Chloride 40 MEQ ONCE ONE 05/04 0900 DC 05/04 PO 05/04 0901 0957 Sodium Chloride 10 ML PRN PRN 05/04 0800 AC IV 05/05 0748 Orders Procedure Date/time Status DIET-NOTHING BY MOUTH 05/04 L Active CHEST-PORTABLE 05/04 0858 Active URINALYSIS/COMPLETE 05/[address] SCAN REQ 05/04 0750 Complete IV SALINE LOCK 05/04 0750 Active CULTURE, BLOOD 05/04 0750 Active SED RATE 05/04 0750 Complete C-REACTIVE PROTEIN 05/04 0750 Complete COMPLETE METABOLIC PANEL 05/04 0750 Complete CBC WITH AUTO DIFF 05/04 0750 Complete Departure Departure Time of Disposition 1045 Disposition DC Home or Self Care(routine) Clinical Impression Primary Impression: Steroid dependence Secondary Impressions: Back pain, Discitis of lumbosacral region, Leucocytosis Condition STABLE Referrals Chris Kong MD Additional Instructions I reexamine Mr. Myers who has a WBCs of 13 without left shift, CRP 6.5 and sedimentation rate of 98. The CT scan was negative for acute finding. The stranding in the perinephric area and a second area was believed to be insignificant by Dr. Hernandez the radiologist. I called Dr. Ferrell his transport conductor informing me that he cannot have an MRI for [address] Mcmahon his primary care physician discussed with him the possibility of epidural abscess, he advised for Levaquin 750 discharged to [facility], start Levaquin 500 mg and he will see him tomorrow in his [facility] rounds. Dr Kong will decided about contiuing the abx and pain management tomorrow. [address] Hernandez the radiologist contacted me regarding changes of the L4-L5 which could be due to the degenerative changes or discitis. [address] Kong to discuss the new information. [address] Kong and notified him of the Radiologist suspicion for discitis if he can not have MRI may be an bone scan is an option. Dr Kong agreed and he will take care of it as an outpatient and remain on the same choic of abx which is levaquin. Mr Gibbs was given tylenol with codien per his request, I told him that he will start on ABx, and he will need either a bone scan or MRI per Doctor Kong, he was agreeable as he did not want to loose his bed in [facility]. He was re examined neurologically and the motor power was 5/5 in both lower extremities, he was dischasrged in a hemodynamically and neurlogically stable condition with follow up per Dr Kong plan. There was no family present in the ED. Dr. Del Cid Discharge Counseling Counseled pt/family regarding diagnosis, medications/RX, home care, follow up needs Prescriptions Current Visit Scripts Levofloxacin (Levaquin 500MG) 500 MG PO DAILY #14 TAB Ref 2 ED Critical Care Critical Care No If Critical Care minutes are documented, the time involved in the performance of seperately reportable procedures was not counted toward critical care time documented. I directly delivered medical care to this critically ill and/or injured patient. Timely evaluation and treatment was necessary to address the significant organ system(s) dysfunction present in this patient. at 5040
[2017-05-04] MEDS ORDERED: LEVAQUIN500 MG PO (10:52)
--- NOTE | 2017-05-04 10:55 | RADIOLOGY REPORT PS360 ---
CHEST-PORTABLE HISTORY: Back pain with leukocytosis leucocytosis ORDERING PHYSICIAN: Karolyn Frausto MD PATIENT AGE: 76 years COMPARISON: 04/29/2017 FINDINGS: The cardiomediastinal silhouette and pulmonary vascularity are within normal limits. The lungs are clear without infiltrates, suspicious nodules, or pleural effusions. No acute bony abnormalities. IMPRESSION: Negative chest, no acute finding
[2017-05-04 11:33] VITALS: BP 113/54
== END 2017-05-04 11:33 | disposition home or self-care (01) ==
LOC: ER 07:06
PROVIDERS: Emergency Medicine
DX: M46.47 Discitis, unspecified, lumbosacral region (principal); D72.829 Elevated white blood cell count, unspecified; E23.0 Hypopituitarism; Z88.2 Allergy status to sulfonamides; Z79.899 Other long term (current) drug therapy; Z79.82 Long term (current) use of aspirin; Z79.52 Long term (current) use of systemic steroids; I25.10 Atherosclerotic heart disease of native coronary artery without angina pectoris; I10 Essential (primary) hypertension; E03.9 Hypothyroidism, unspecified
CPT/HCPCS: J1956